=== PATIENT | male | born 1950 | race Caucasian/White ===

== ENCOUNTER 2016-09-21 11:57 | Inpatient (IN) ==
[2016-09-21] MEDS ORDERED: Ipratropium/Albuterol Neb 3 ML IH ONE (12:03)
[2016-09-21] MEDS ORDERED: methylPREDNISolone 125 MG/2 ML VIAL IVP ONE (12:03)
--- NOTE | 2016-09-21 12:05 | Emergency Department Note ---
Disposition Clinical Impression: Acute exacerbation of chronic obstructive airways disease Disposition: Admitted As Inpatient Condition: Fair Referrals: Morris Hudson DO [Primary Care Provider] - Time of Disposition: 13:15 SOB HPI - General Chief Complaint: ED Shortness of Breath/Dyspnea Stated Complaint: MEG / Chest Pain Time Seen by Provider: 09/21/16 12:01 Source: patient Mode of arrival: ambulatory Limitations: no limitations Nursing Notes Reviewed: Yes Vital Signs Reviewed: Yes - History of Present Illness 66-year-old with history COPD is having increasing shortness of breath over the last week. Patient called his family doctor 4 days ago was started on antibiotics and steroids without improvement. Pt Subjective Complaint: shortness of breath Onset (ago): day(s) Context: recent illness Severity: moderate Consistency/Duration: constant Improves with: nothing Worsens with: exertion Known history of: COPD Associated symptoms: Reports: chest pain, cough. Denies: fever Treatment prior to arrival: oxygen, bronchodilator Cough present: Yes Cough Description: Involuntary Cough Frequency: Intermittent - Related Data Home Medications Medication Instructions Recorded Confirmed Albuterol Neb [Proventil Neb] 2.5 mg IH TID PRN 05/09/15 10/05/15 Albuterol Sulfate [Proair HFA] 2 puff IH Q4HR PRN 05/09/15 10/05/15 Arformoterol Tartrate [Brovana] 15 mcg IH BID 05/09/15 10/05/15 Aspirin 325 mg PO DAILY 05/09/15 10/05/15 Atorvastatin Calcium [Lipitor] 40 mg PO QAM 05/09/15 10/05/15 Budesonide Neb [Pulmicort Neb] 0.25 mg IH BID 05/09/15 10/05/15 ClonazePAM [Klonopin] 2 mg PO HS 05/09/15 10/05/15 Diltiazem CD (24hr) [Cardizem CD] 120 mg PO QAM 05/09/15 10/05/15 Docusate Sodium [Dulcolax Stool 100 mg PO BID 05/09/15 10/05/15 Softener] Gabapentin [Neurontin] 1,600 mg PO HS 05/09/15 10/05/15 Gabapentin [Neurontin] 1,600 mg PO QAM 05/09/15 10/05/15 Gabapentin [Neurontin] 800 mg PO QPM 05/09/15 10/05/15 Oxygen 3.5 l NS AD 05/09/15 10/05/15 Pantoprazole Sodium [Protonix] 40 mg PO QAM 05/09/15 10/05/15 Polyethylene Glycol 3350 [MiraLAX] 17 gm PO DAILY PRN 05/09/15 10/05/15 Tiotropium [Spiriva] 18 mcg IH QAM 05/09/15 10/05/15 Travoprost [Travatan Z] 5 ml OP HS 05/09/15 10/05/15 Venlafaxine [Effexor] 75 mg PO BID 05/09/15 10/05/15 Allergies Allergy/AdvReac Type Severity Reaction Status Date / Time hydrocodone [From Vicodin] Allergy Mild Rash Verified 09/21/16 12:02 Penicillins [PCN] Allergy Mild Rash Verified 09/21/16 12:02 acetaminophen [From Vicodin] Allergy Rash Verified 09/21/16 12:02 Constitutional: Denies: fever, chills, weakness, weight change Eyes: Denies: eye pain, eye discharge, vision change ENT ED: Denies: ear pain, throat pain, dental pain, hearing loss, epistaxis, congestion, dysphagia Cardiovascular: Reports: chest pain. Denies: palpitations, dyspnea on exertion , edema, syncope Respiratory: Reports: cough, dyspnea, wheezes. Denies: hemoptysis, stridor Gastrointestinal: Denies: abdominal pain, nausea, vomiting, diarrhea, constipation, hematemesis, melena, hematochezia Genitourinary: Denies: urgency, dysuria, frequency, hematuria Musculoskeletal: Denies: back pain, neck pain, arthralgia, myalgia Integumentary: Denies: rash, abrasion, lesions Neurological: Denies: headache, weakness, numbness, paresthesias, confusion, abnormal gait, vertigo Psychiatric: Denies: anxiety, depression, suicidal thoughts, homicidal thoughts , auditory hallucinations, visual hallucinations Endocrine: Denies: fatigue Hematological/Lymphatic: Denies: easy bleeding, easy bruising Allergic/Immunologic: Denies: facial swelling, urticaria Past Medical History - Past Medical History Medical history: Reports: COPD Surgical history: Reports: herniorrhaphy, sinus surgery, other Psychiatric history: Reports: anxiety - Social History Smoking Status: Former smoker Smokeless Tobacco Status: No Alcohol use: Reports: none Drug use: Reports: none Physical Exam - General Limitations: no limitations General appearance: alert, in no apparent distress - Head Head exam: atraumatic, normocephalic, normal inspection - Eye Eye exam: Present: normal appearance, PERRL, EOMI - ENT ENT exam: normal exam, normal oropharynx, mucous membranes moist - Neck Neck exam: Present: normal inspection, full ROM, trachea midline - Chest Chest inspection: Present: normal inspection, symmetric chest wall rise - Respiratory Respiratory exam: Present: respiratory distress, wheezes, accessory muscle use, prolonged expiratory phase - Cardiovascular Cardiovascular exam: Present: regular rate, normal rhythm, normal heart sounds - Abdominal Exam Abdominal exam: Present: soft, Non-Tender. Absent: tenderness, distention, guarding, rebound, rigidity - Extremities Exam Extremities exam: Present: normal inspection, full ROM. Absent: tenderness, pedal edema - Expanded Lower Extremity Exam Neurovascular/Tendon exam: Absent: motor deficit, sensory deficit, tendon deficit Gait: observed and normal - Back Exam Back exam: Present: normal inspection, full ROM. Absent: tenderness - Neurological Exam Neurological exam: Present: alert, oriented X3 - Psychiatric Psychiatric exam: Present: normal affect, normal mood - Skin Skin exam: Present: warm, dry, intact, normal color Course - Reevaluation(s) Reevaluation #1: Some improvement with the breathing treatments and steroids however with any exertion and becomes very short of breath. Time: 13:15 - Consultations Consultation #1: Discussed with Dr. Tellez, admit. Time: 13:16 Vital Signs Temperature 97.8 F 09/21/16 12:00 Pulse Rate 110 09/21/16 12:00 Respiratory Rate 24 09/21/16 12:00 Blood Pressure 202/103 09/21/16 12:00 O2 Sat by Pulse Oximetry 91 L 09/21/16 12:00 Temperature 97.8 F 09/21/16 12:00 Pulse Rate 108 09/21/16 12:41 Respiratory Rate 16 09/21/16 12:41 Blood Pressure 150/72 09/21/16 12:41 O2 Sat by Pulse Oximetry 98 09/21/16 12:41 Oxygen Delivery Oxygen Delivery Nasal Cannula Shortness of Breath/Dyspnea - Lab Data Lab results reviewed: Yes I reviewed the patient's lab results. Result diagrams: 09/21/16 12:11 09/21/16 12:11 Lab Results 09/21/16 09/21/16 09/21/16 Range/Units 12:11 12:11 12:11 WBC 4.7 (4.3-11.1) K/mcL RBC 4.33 (4.19-5.50) M/mcL Hgb 11.6 L (12.9-16.9) g/dL Hct 38.9 (37.5-50.1) % MCV 89.8 (83.0-100.0) fL MCH 26.8 L (28.0-33.3) pg MCHC 29.8 L (31.6-35.5) g/dL RDW 12.9 (11.5-14.5) % Plt Count 177 (140-400) K/mcL MPV 9.0 L (9.4-12.4) fL Immature Gran % 0.4 (0-4) % Seg Neutrophils % 88.9 % Lymphocytes % 8.6 % Monocytes % 1.9 % Eosinophils % 0.0 % Basophils % 0.2 % Neutrophils # 4.1 (1.6-8.9) K/mcL Lymphocytes # 0.4 L (0.6-4.6) K/mcL Monocytes # 0.1 (0.0-1.3) K/mcL Eosinophils # 0.0 (0.0-0.6) K/mcL Basophils # 0.0 (0.0-0.2) K/mcL PT 12.1 (9.4-12.1) Seconds INR 1.1 APTT 33.9 (26.0-36.0) Seconds Sodium (136-145) mEq/L Potassium (3.5-4.5) mEq/L Chloride (98-109) mEq/L Carbon Dioxide (19-29) mEq/L BUN (8-26) mg/dL Creatinine (0.72-1.25) mg/dL Est GFR ( Amer) (> 60) Est GFR (Non-Af Amer) (> 60) BUN/Creatinine Ratio (6-26) Glucose (70-99) mg/dL Calculated Osmolality (280-300) Calcium (8.6-10.8) mg/dL Troponin I (0-0.03) ng/mL B-Natriuretic Peptide 187 H (0-100) pg/mL 09/21/16 09/21/16 Range/Units 12:11 12:11 WBC (4.3-11.1) K/mcL RBC (4.19-5.50) M/mcL Hgb (12.9-16.9) g/dL Hct (37.5-50.1) % MCV (83.0-100.0) fL MCH (28.0-33.3) pg MCHC (31.6-35.5) g/dL RDW (11.5-14.5) % Plt Count (140-400) K/mcL MPV (9.4-12.4) fL Immature Gran % (0-4) % Seg Neutrophils % % Lymphocytes % % Monocytes % % Eosinophils % % Basophils % % Neutrophils # (1.6-8.9) K/mcL Lymphocytes # (0.6-4.6) K/mcL Monocytes # (0.0-1.3) K/mcL Eosinophils # (0.0-0.6) K/mcL Basophils # (0.0-0.2) K/mcL PT (9.4-12.1) Seconds INR APTT (26.0-36.0) Seconds Sodium 142 (136-145) mEq/L Potassium 4.4 (3.5-4.5) mEq/L Chloride 98 (98-109) mEq/L Carbon Dioxide 34 H (19-29) mEq/L BUN 19 (8-26) mg/dL Creatinine 0.79 (0.72-1.25) mg/dL Est GFR ( Amer) > 60 (> 60) Est GFR (Non-Af Amer) > 60 (> 60) BUN/Creatinine Ratio 24 (6-26) Glucose 155 H (70-99) mg/dL Calculated Osmolality 299 (280-300) Calcium 9.9 (8.6-10.8) mg/dL Troponin I 0.01 (0-0.03) ng/mL B-Natriuretic Peptide (0-100) pg/mL - Radiology Data Radiology results reviewed: Yes I reviewed the patient's radiology results. Chest X-Ray 09/21/16 12:01 IMPRESSION: No acute cardiac or pulmonary disease. D/ / Jeb Triana MD / Jeb Triana MD Interpreting Provider: Jeb Triana MD - EKG Data EKG attestation: Yes I reviewed and interpreted this EKG. EKG shows normal: Reports: sinus rhythm Rate: Reports: normal Rhythm: Reports: NSR [place]/QRS: Reports: LBBB When compared to previous EKG there are: no significant changes (04/28/2016) Interpretation: Reports: no acute changes
[2016-09-21 12:36] LABS: Basophils % 0.2 %; Hematocrit 38.9 % (37.5-50.1); Hemoglobin 11.6 g/dL (12.9-16.9); Immature Granulocytes % 0.4 % (0-4); Lymphocytes # 0.4 K/mcL (0.6-4.6); Lymphocytes % 8.6 %; Mean Corpuscular HGB Conc 29.8 g/dL (31.6-35.5); Mean Corpuscular Hemoglobin 26.8 pg (28.0-33.3); Mean Corpuscular Volume 89.8 fL (83.0-100.0); Monocytes # 0.1 K/mcL (0.0-1.3); Monocytes % 1.9 %; Neutrophils # 4.1 K/mcL (1.6-8.9); Platelet Count 177 K/mcL (140-400); Red Blood Count 4.33 M/mcL (4.19-5.50); Red Cell Distribution Width 12.9 % (11.5-14.5); Segmented Neutrophils % 88.9 %
[2016-09-21 12:41] LABS: INR 1.1; Prothrombin Time 12.1 Seconds (9.4-12.1)
[2016-09-21 12:44] LABS: Activated Partial Thrombo Time 33.9 Seconds (26.0-36.0)
[2016-09-21 12:47] LABS: BUN/Creatinine Ratio 24 (6-26); Blood Urea Nitrogen 19 mg/dL (8-26); Calcium 9.9 mg/dL (8.6-10.8); Carbon Dioxide 34 mEq/L (19-29); Chloride 98 mEq/L (98-109); Glucose 155 mg/dL (70-99); Osmolality,Calculated 299 (280-300); Potassium 4.4 mEq/L (3.5-4.5); Sodium 142 mEq/L (136-145); eGFR For African Americans > 60 (> 60); eGFR For Non-African Americans > 60 (> 60)
[2016-09-21] MEDS ORDERED: Ondansetron 4 MG/2 ML VIAL IVP PRN (13:50)
[2016-09-21] MEDS ORDERED: Naloxone 0.4 MG/ML INJ IVP PRN (13:50)
--- NOTE | 2016-09-21 13:56 | Internal Med History&Physical ---
Date of Encounter: 09/21/16 Time of Encounter: 13:30 Assessment and Plan (1) Acute exacerbation of chronic obstructive airways disease Current visit: Yes Status: Acute Patient has a history of end-stage COPD on home oxygen. He has a 4 day history of worsening shortness of breath, cough and change in his sputum production. Examination reveals diffuse wheezing bilaterally and using accessory muscles of respiration. He has tachycardia and worsening hypoxia. Chest x-ray does not reveal any pneumonia or pneumothorax. Labs reviewed. Patient will be admitted to inpatient status due to acute exacerbation of COPD. Patient is high risk due to risk of worsening respiratory failure that required intervention and mechanical ventilation. Patient will be placed on intravenous steroids and [id number] breathing treatments. Levaquin by mouth for 5 days. NIPPV support at [id number] for now. Patient states that he is intolerant to BiPAP. He states that he uses a home and later. His family has been instructed to bring the same to the hospital and use it here. Patient is advanced wishes are not to have CPR performed. However, if he develops worsening respiratory failure, he is agreeable to intubation and mechanical ventilation for a short period of time-3 days after which he does not want to be kept on the ventilator. 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 (2) Pulmonary hypertension Current visit: Yes Status: Chronic Patient states that he was diagnosed with pulmonary hypertension and placed on calcium channel sho for that. Continue calcium channel sho. (3) Respiratory failure Current visit: Yes Status: Chronic Patient uses 3 L of oxygen at home around the clock. Patient is acute worsening of his respiratory failure due to COPD exacerbation. We will provide noninvasive ventilatory support with supplemental oxygen. Qualifiers: Chronicity: acute on chronic Respiratory failure complication: hypoxia and hypercapnia Qualified Code(s): J96.21 - Acute and chronic respiratory failure with hypoxia; J96.22 - Acute and chronic respiratory failure with hypercapnia (4) Obesity (BMI 30.0-34.9) Current visit: No Status: Chronic Internal Medicine - H&P: HPI Chief complaint: Shortness of breath Admitted From: Emergency Dept Plans for Post Hospital Care: Home History of present illness: Mr. Bess is a 66 year old male with a history of end-stage COPD on home oxygen 3 L [id number] presented to the emergency room due to shortness of breath. Patient stated that he has been short of breath over the past 4 days. He states that the shortness of breath started gradually and has been getting worse. He is currently short of breath even at rest. Shortness of breath associated with worsening cough and sputum production. Patient states that he has a cough and sputum production at baseline. However, he has noticed an increase in the amount of sputum produced, change in the consistency of the sputum and worsening cough. He also reports wheezing. He denies any chest pain although he reports chest tightness. He reports nausea although he denies any vomiting, abdominal pain, diarrhea or constipation. He denies having palpitations or feeling lightheaded. He denies any swelling in his legs. He denies any weakness in his arms or legs. He denies any fever or chills. He reports intermittent runny nose, postnasal drip. He reports that he has a sore throat from excessive coughing. Past Med Surg Social Fam HX - Past Medical History Attestation: Yes The following information was validated with the patient. Source: patient, obtained from family Medical history: COPD Psychiatric history: anxiety, PTSD - Past Surgical History Surgical History: herniorrhaphy, orthopedic, other (Multiple back surgeries and wrist surgeries), sinus surgery, other (Lung reduction surgery bilaterally in 1999) - Social History Smoking Status: Former smoker Smokeless Tobacco Status: No Alcohol use: none Drug use: none Current living situation: Home, With Family - Additional Family History Additional family history: Reviewed. Not pertinent Internal Medicine - H&P: Meds Albuterol Neb [Proventil Neb] 2.5 mg IH TID PRN 05/09/15 [History] Albuterol Sulfate [Proair HFA] 2 puff IH Q4HR PRN 05/09/15 [History] Arformoterol Tartrate [Brovana] 15 mcg IH BID 05/09/15 [History] Aspirin 325 mg PO DAILY 05/09/15 [History] Atorvastatin Calcium [Lipitor] 40 mg PO QAM 05/09/15 [History] Budesonide Neb [Pulmicort Neb] 0.25 mg IH BID 05/09/15 [History] ClonazePAM [Klonopin] 2 mg PO HS 05/09/15 [History] Diltiazem CD (24hr) [Cardizem CD] 120 mg PO QAM 05/09/15 [History] Docusate Sodium [Dulcolax Stool Softener] 100 mg PO BID 05/09/15 [History] Gabapentin [Neurontin] 1,600 mg PO HS 05/09/15 [History] Gabapentin [Neurontin] 1,600 mg PO QAM 05/09/15 [History] Oxygen 3.5 l NS AD 05/09/15 [History] Pantoprazole Sodium [Protonix] 40 mg PO QAM 05/09/15 [History] Polyethylene Glycol 3350 [MiraLAX] 17 gm PO DAILY PRN 05/09/15 [History] Tiotropium [Spiriva] 18 mcg IH QAM 05/09/15 [History] Travoprost [Travatan Z] 5 ml OP HS 05/09/15 [History] Ciclopirox Olamine [Ciclopirox] 1 appl TP DAILY PRN 09/21/16 [History] Doxycycline Hyclate [Morgidox] 100 mg PO BID 09/21/16 [History] Furosemide [Lasix] 20 mg PO DAILY PRN 09/21/16 [History] OLANZapine [Zyprexa] 5 mg PO 09/21/16 [History] Potassium Chloride [K-Tab ER] 10 meq PO DAILY PRN 09/21/16 [History] PredniSONE 10 mg PO AD 09/21/16 [History] Venlafaxine HCl [Venlafaxine HCl ER] 150 mg PO QAM 09/21/16 [History] Allergies hydrocodone [From Vicodin] Allergy (Mild, Verified 09/21/16 12:02) Rash Skin peeling Penicillins [PCN] Allergy (Mild, Verified 09/21/16 12:02) Rash acetaminophen [From Vicodin] Allergy (Verified 09/21/16 12:02) Rash All Systems PM: A 10-system review of systems was performed and is negative for pertinent findings except as documented above in the HPI. Review of systems: 10 systems have been reviewed and are negative except as mentioned in the history of present illness - Constitutional Vitals: Temp Pulse Resp BP Pulse Ox 97.8 F 98 19 124/91 98 09/21/16 12:00 09/21/16 13:31 09/21/16 13:31 09/21/16 13:31 09/21/16 13:31 Exam: Gen.: Lying in bed. Moderate distress. Eyes: Pupils equal, round and reactive to light. Extraocular muscles intact. ENT: Moist mucous membranes. No oropharyngeal erythema or discharge. Chest: Bilateral diffuse wheezing present. Reduced breath sounds bilaterally. Using accessory muscles of respiration. CVS: First and second heart sounds present. No murmurs, rubs or gallops. Tachycardia present. Abdomen: Soft, nontender, obese. Bowel sounds present. Skin: No decubitus ulcers appreciated. CONSERVATION EDUCATOR: No focal neuro deficits present. Psychiatric: Alert, awake and oriented to time, place and person. Lymphatic system: No lymphadenopathy appreciated Internal Med - H&P Results - Labs CBC & Chem 7: 09/21/16 12:11 09/21/16 12:11 Labs: Short CBC 09/21/16 Range/Units 12:11 WBC 4.7 (4.3-11.1) K/mcL Hgb 11.6 L (12.9-16.9) g/dL Hct 38.9 (37.5-50.1) % Plt Count 177 (140-400) K/mcL Neutrophils # 4.1 (1.6-8.9) K/mcL BMP 09/21/16 12:11 Sodium 142 Potassium 4.4 Chloride 98 Carbon Dioxide 34 H BUN 19 Creatinine 0.79 Glucose 155 H Calcium 9.9 Cardiac Enzymes 09/21/16 Range/Units 12:11 Troponin I 0.01 (0-0.03) ng/mL - EKG Data -: EKG Interpreted by Myself EKG shows normal: sinus rhythm, QRS complexes (Left bundle branch block) Rate: tachycardia - EKG Data Prior EKG available for review: yes When compared to previous EKG: there is no significant change - Impressions ITS Impressions Chest X-Ray 09/21/16 12:01 IMPRESSION: No acute cardiac or pulmonary disease. D/ / Jeb Triana MD / Jeb Triana MD Interpreting Provider: Jeb Triana MD - Diagnostic Studies Chest x-ray Status: image reviewed by me (No acute infiltrate seen. Sternal fixation device seen.)
[2016-09-21] MEDS: levoFLOXacin 500 MG TABLET PO SCH (15:24)
[2016-09-21] MEDS: Ipratropium/Albuterol Neb 3 ML IH SCH ×2 (15:56→20:10)
[2016-09-21] MEDS: *HR* Heparin 5,000 UNIT/ML VIAL SQ SCH ×2 (17:08→23:13)
[2016-09-21] MEDS: GuaiFENesin Liq 200 MG/10 ML UDC PO SCH ×3 (17:09→23:13)
[2016-09-21] MEDS: MethylPREDNISolone 40 MG/ML VIAL IVP SCH ×2 (17:09→23:13)
[2016-09-21] MEDS: *HR* OxyCODONE/APAP 5/325 TABLET PO PRN (18:15)
[2016-09-22] MEDS: Ipratropium/Albuterol Neb 3 ML IH SCH ×7 (00:32→23:40)
[2016-09-22] MEDS ORDERED: *HR* Morphine 2 MG/ML SYRINGE IVP PRN (02:18)
[2016-09-22] MEDS: *HR* LORazepam 2 MG/ML VIAL IVP PRN ×3 (02:28→20:48)
[2016-09-22] MEDS: GuaiFENesin Liq 200 MG/10 ML UDC PO SCH ×4 (04:55→23:04)
[2016-09-22] MEDS: MethylPREDNISolone 40 MG/ML VIAL IVP SCH ×4 (04:55→23:04)
[2016-09-22 05:39] LABS: Hematocrit 35.8 % (37.5-50.1); Hemoglobin 10.7 g/dL (12.9-16.9); Immature Granulocytes % 0.3 % (0-4); Lymphocytes # 0.3 K/mcL (0.6-4.6); Lymphocytes % 4.3 %; Mean Corpuscular HGB Conc 29.9 g/dL (31.6-35.5); Mean Corpuscular Hemoglobin 27.4 pg (28.0-33.3); Mean Corpuscular Volume 91.6 fL (83.0-100.0); Mean Platelet Volume 9.1 fL (9.4-12.4); Monocytes # 0.1 K/mcL (0.0-1.3); Monocytes % 2.1 %; Neutrophils # 5.8 K/mcL (1.6-8.9); Platelet Count 189 K/mcL (140-400); Red Blood Count 3.91 M/mcL (4.19-5.50); Red Cell Distribution Width 13.2 % (11.5-14.5); Segmented Neutrophils % 93.3 %
[2016-09-22 06:00] LABS: Alanine Aminotransferase 16 Units/L (0-55); Albumin 3.6 g/dL (3.5-5.0); Alkaline Phosphatase 72 Units/L (38-126); Aspartate Amino Transferase 29 Units/L (5-34); BUN/Creatinine Ratio 28 (6-26); Bilirubin,Total 0.3 mg/dL (0.2-1.2); Blood Urea Nitrogen 29 mg/dL (8-26); Calcium 9.4 mg/dL (8.6-10.8); Carbon Dioxide 37 mEq/L (19-29); Chloride 99 mEq/L (98-109); Globulin 3.5 g/dL (2.4-3.5); Glucose 154 mg/dL (70-99); Osmolality,Calculated 305 (280-300); Potassium 4.2 mEq/L (3.5-4.5); Sodium 143 mEq/L (136-145); Total Protein 7.1 g/dL (6.0-8.3); eGFR For African Americans > 60 (> 60); eGFR For Non-African Americans > 60 (> 60)
[2016-09-22] MEDS: levoFLOXacin 500 MG TABLET PO SCH (07:33)
[2016-09-22] MEDS: Diltiazem CD (24hr) 120 MG CAPSULE PO SCH (07:33)
[2016-09-22] MEDS: *HR* Heparin 5,000 UNIT/ML VIAL SQ SCH ×3 (07:33→23:04)
[2016-09-22] MEDS ORDERED: Furosemide 20 MG TABLET PO PRN (08:34)
--- NOTE | 2016-09-22 08:42 | Internal Med Progress Note ---
Date of Encounter: 09/22/16 Time of Encounter: 08:40 - Assessment and plan (1) Acute exacerbation of chronic obstructive airways disease Current Visit: Yes Status: Acute Assessment and plan: Patient is known to have advanced COPD with history of lung reduction surgery. Clinical status somewhat improved but had an episode of acute respiratory distress and hypoxia this afternoon due to not being on appropriate oxygen and trying to ambulate. Improved after receiving supplemental oxygen and benzodiazepines. Continue scheduled bronchodilators, IV steroids, empiric oral antibiotics and inhaled steroids. Patient is noted to be on noninvasive ventilator support, which is brought in from his home. Continue to use when necessary. Supportive care. Patient's CODE STATUS is DNR comfort care arrest, discussed with him and he refuses CPR and cardiac resuscitation but is agreeable to temporary elective intubation to improve his respiratory status, may be for a trial of 3 days. High risk condition, at risk for endotracheal intubation and mechanical ventilation. (2) Chronic respiratory failure Current Visit: Yes Status: Chronic Assessment and plan: Patient noted to be on home oxygen for end-stage COPD. He requires outpatient pulmonology follow-up. Qualifiers: Respiratory failure complication: hypoxia Qualified Code(s): J96.11 - Chronic respiratory failure with hypoxia (3) Depression Current Visit: Yes Status: Chronic Qualifiers: Depression Type: unspecified Qualified Code(s): F32.9 - Major depressive disorder, single episode, unspecified (4) PTSD (post-traumatic stress disorder) Current Visit: Yes Status: Chronic (5) Pulmonary hypertension Current Visit: Yes Status: Chronic Assessment and plan: Continue calcium channel sho. (6) Obesity (BMI 30.0-34.9) Current Visit: No Status: Chronic - Subjective Interval history: Feels about the same; better shortness of breath; used home ventilator last night, currently on nasal cannula; no chest pain, cough, congestion, palpitations, does have some leg swelling at baseline and exertional dyspnea; - Constitutional Vitals: Temp Pulse Resp BP Pulse Ox 97.5 F L 99 18 144/93 93 L 09/22/16 06:37 09/22/16 07:29 09/22/16 07:51 09/22/16 07:51 09/22/16 07:51 General appearance: Present: A&O X 3, obese, answers questions appropriately - Head Head exam: Present: atraumatic, normocephalic - Neck Neck exam general surgery: Present: supple, trachea midline. Absent: lymphadenopathy - Respiratory Respiratory exam: Present: decreased breath sounds (on the right), wheezes ( diffuse end-expiratry wheezing on the left posterior lungs). Absent: accessory muscle use, rales, rhonchi - Cardiovascular Cardiovascular exam: Present: RRR, +S1, +S2. Absent: diastolic murmur, gallop, rubs, systolic murmur - GI/Abdominal GI/Abdominal exam: Present: normal bowel sounds, soft, no peritoneal signs. Absent: distended, tenderness - Extremities Exam Extremities exam: Present: full ROM, pedal edema, warm, radial pulses palpable and symetrical. Absent: calf tenderness, cyanotic - Neurological Exam Neurological exam: Present: CN II-XII intact, oriented X3, no focal deficits. Absent: pronater drift, facial droop, speech deficit - Skin Skin exam: Present: dry, intact Internal Medicine: Result - Labs CBC & Chem 7: 09/22/16 05:34 09/22/16 05:34 Labs: Short CBC 09/22/16 Range/Units 05:34 WBC 6.2 (4.3-11.1) K/mcL Hgb 10.7 L (12.9-16.9) g/dL Hct 35.8 L (37.5-50.1) % Plt Count 189 (140-400) K/mcL Neutrophils # 5.8 (1.6-8.9) K/mcL BMP 09/22/16 05:34 Sodium 143 Potassium 4.2 Chloride 99 Carbon Dioxide 37 H BUN 29 H D Creatinine 1.05 Glucose 154 H Calcium 9.4 Liver Function 09/22/16 Range/Units 05:34 Total Bilirubin 0.3 (0.2-1.2) mg/dL AST 29 (5-34) Units/L ALT 16 (0-55) Units/L Alkaline Phosphatase 72 (38-126) Units/L Albumin 3.6 (3.5-5.0) g/dL - ABG Interpretation ABG results: PT/INR, D-dimer PT 12.1 Seconds (9.4-12.1) 09/21/16 12:11 Consult Discharge Plan - Plan Referrals: Morris Hudson DO [Primary Care Provider] -
[2016-09-22] MEDS ORDERED: Budesonide Neb 0.25 MG/2 ML IH SCH (09:00)
[2016-09-22] MEDS: Budesonide Neb 0.25 MG/2 ML IH SCH ×2 (10:26→20:48)
[2016-09-22] MEDS: Venlafaxine XR (24 HR) 150 MG CAP.ER.24H PO SCH (13:30)
--- NOTE | 2016-09-22 17:42 | Electrocardiograph Report ---
[facility] Test Date: 2016-09-21 Pat Name: Ney Bess Department: 105 Room: 2N13 Gender: M Hand Embroiderer: JOSE MANUEL : 1950 Requested By: Kishor Hernandez Order Number: [id number] Reading MD: Talon Coelho MD Measurements Intervals [place] Rate: 117 P: 71 MT: 137 QRS: 44 QRSD: 157 T: 89 QT: 361 QTc: 431 Interpretive Statements SINUS TACHYCARDIA LEFT BUNDLE BRANCH BLOCK Electronically Signed On 09-22-16 17:41:23 EST by Talon Coelho MD
[2016-09-22] MEDS: Nystatin SUSP 5 ML UD.LIQ PO SCH (20:23)
[2016-09-22] MEDS: OLANZapine 5 MG TAB.RAPDIS PO SCH (22:36)
[2016-09-22] MEDS: Gabapentin 400 MG CAPSULE PO SCH (22:36)
[2016-09-23] MEDS: Ipratropium/Albuterol Neb 3 ML IH SCH ×5 (04:46→20:42)
[2016-09-23] MEDS: GuaiFENesin Liq 200 MG/10 ML UDC PO SCH ×4 (05:07→23:31)
[2016-09-23] MEDS: MethylPREDNISolone 40 MG/ML VIAL IVP SCH ×4 (05:07→23:31)
[2016-09-23] MEDS: Budesonide Neb 0.25 MG/2 ML IH SCH ×2 (07:43→20:43)
[2016-09-23] MEDS: *HR* Heparin 5,000 UNIT/ML VIAL SQ SCH ×3 (08:25→23:32)
[2016-09-23] MEDS: Gabapentin 400 MG CAPSULE PO SCH ×2 (08:25→20:34)
[2016-09-23] MEDS: Nystatin SUSP 5 ML UD.LIQ PO SCH ×4 (08:25→20:34)
[2016-09-23] MEDS: levoFLOXacin 500 MG TABLET PO SCH (08:25)
[2016-09-23] MEDS: Diltiazem CD (24hr) 120 MG CAPSULE PO SCH (08:25)
[2016-09-23] MEDS: Venlafaxine XR (24 HR) 150 MG CAP.ER.24H PO SCH (08:25)
--- NOTE | 2016-09-23 13:46 | Internal Med Progress Note ---
Date of Encounter: 09/23/16 Time of Encounter: 08:30 - Assessment and plan (1) Acute exacerbation of chronic obstructive airways disease Current Visit: Yes Status: Acute Assessment and plan: Known advanced COPD s/plung reduction surgery. Continue scheduled bronchodilators, IV steroids, empiric oral antibiotics and inhaled steroids. Will consider titrating steroids from tmrw a.m Continue BiPAP prn Patient's CODE STATUS is DNR comfort care arrest, discussed with him and he refuses CPR and cardiac resuscitation but is agreeable to temporary elective intubation to improve his respiratory status, may be for a trial of 3 days. High risk condition, at risk for endotracheal intubation and mechanical ventilation. (2) Chronic respiratory failure Current Visit: Yes Status: Chronic Assessment and plan: Patient noted to be on home oxygen for end-stage COPD. He requires outpatient pulmonology follow-up. Qualifiers: Respiratory failure complication: hypoxia Qualified Code(s): J96.11 - Chronic respiratory failure with hypoxia (3) Depression Current Visit: Yes Status: Chronic Assessment and plan: Resume home meds Qualifiers: Depression Type: unspecified Qualified Code(s): F32.9 - Major depressive disorder, single episode, unspecified (4) PTSD (post-traumatic stress disorder) Current Visit: Yes Status: Chronic Assessment and plan: Resume home meds (5) Pulmonary hypertension Current Visit: Yes Status: Chronic Assessment and plan: Continue calcium channel sho. (6) Respiratory failure Current Visit: Yes Status: Acute Assessment and plan: Acute on chronic Patient may need to be assessed for necessity for high flow O2 upon discharge Qualifiers: Chronicity: acute on chronic Respiratory failure complication: hypoxia and hypercapnia Qualified Code(s): J96.21 - Acute and chronic respiratory failure with hypoxia; J96.22 - Acute and chronic respiratory failure with hypercapnia (7) Obesity (BMI 30.0-34.9) Current Visit: Yes Status: Chronic - Subjective Interval history: 66 Y/O M with advanced COPD s/p lung reduction surgery with FEV of 17% (per patient), with chronic hypoxic respiratory failure being managed for acute on chronic hypoxemic respiratory failure secondary to COPD exacerbation He is seen at bedside today Denies new complains Bu reports since admission, unable to ambulate without significant respiratory distress. Denies chest pain, reports improvement in cough and sputum production Occasionally uses BiPAP machine at night Other PMH significant for HTN, HLD, Pulm HTN, PTSD. - Constitutional Vitals: Temp Pulse Resp BP Pulse Ox 97.6 F 95 20 127/81 97 09/23/16 11:36 09/23/16 11:36 09/23/16 12:06 09/23/16 11:36 09/23/16 12:06 General appearance: Present: mild distress, A&O X 3, obese, answers questions appropriately - Head Head exam: Present: atraumatic - Eye Eye exam: Present: PERRL, conjuntiva pink, sclera anicteric - ENT ENT exam: Present: mucous membranes moist - Neck Neck exam general surgery: Present: normal inspection - Respiratory Additional comments: Distant breath sounds with few scattered wheezing - Cardiovascular Cardiovascular exam: Present: RRR, +S1, +S2. Absent: diastolic murmur, gallop, rubs, systolic murmur - GI/Abdominal GI/Abdominal exam: Present: normal bowel sounds, soft, no peritoneal signs. Absent: distended, tenderness - Extremities Exam Extremities exam: Present: warm, radial pulses palpable and symetrical. Absent : calf tenderness, cyanotic, pedal edema - Neurological Exam Neurological exam: Present: CN II-XII intact, oriented X3, no focal deficits. Absent: pronater drift, facial droop, speech deficit - Skin Skin exam: Present: dry, intact Internal Medicine: Result - Labs CBC & Chem 7: 09/22/16 05:34 09/22/16 05:34 - ABG Interpretation ABG results: PT/INR, D-dimer PT 12.1 Seconds (9.4-12.1) 09/21/16 12:11 Consult Discharge Plan - Plan Referrals: Morris Hudson DO [Primary Care Provider] - (sent web request on 09-22-16 @ 1851)
[2016-09-23] MEDS: *HR* OxyCODONE/APAP 5/325 TABLET PO PRN ×2 (14:27→23:31)
[2016-09-23] MEDS: OLANZapine 5 MG TAB.RAPDIS PO SCH (20:35)
[2016-09-24] MEDS: Ipratropium/Albuterol Neb 3 ML IH SCH ×6 (00:20→22:34)
[2016-09-24 05:57] LABS: Hematocrit 34.3 % (37.5-50.1); Immature Granulocytes % 0.8 % (0-4); Lymphocytes # 0.3 K/mcL (0.6-4.6); Lymphocytes % 3.3 %; Mean Corpuscular HGB Conc 29.2 g/dL (31.6-35.5); Mean Corpuscular Hemoglobin 27.3 pg (28.0-33.3); Mean Corpuscular Volume 93.7 fL (83.0-100.0); Mean Platelet Volume 9.8 fL (9.4-12.4); Monocytes # 0.3 K/mcL (0.0-1.3); Monocytes % 2.9 %; Neutrophils # 9.1 K/mcL (1.6-8.9); Platelet Count 210 K/mcL (140-400); Red Blood Count 3.66 M/mcL (4.19-5.50); Red Cell Distribution Width 13.4 % (11.5-14.5)
[2016-09-24 05:59] LABS: Alanine Aminotransferase 16 Units/L (0-55); Albumin 3.6 g/dL (3.5-5.0); Albumin/Globulin Ratio 1.1 (1.1-2.2); Alkaline Phosphatase 62 Units/L (38-126); Aspartate Amino Transferase 35 Units/L (5-34); BUN/Creatinine Ratio 45 (6-26); Bilirubin,Total 0.3 mg/dL (0.2-1.2); Calcium 9.6 mg/dL (8.6-10.8); Carbon Dioxide 38 mEq/L (19-29); Chloride 100 mEq/L (98-109); Globulin 3.2 g/dL (2.4-3.5); Glucose 141 mg/dL (70-99); Osmolality,Calculated 309 (280-300); Sodium 143 mEq/L (136-145); Total Protein 6.8 g/dL (6.0-8.3); eGFR For African Americans > 60 (> 60); eGFR For Non-African Americans > 60 (> 60)
[2016-09-24 06:05] LABS: Blood Urea Nitrogen 43 mg/dL (8-26); Potassium 4.8 mEq/L (3.5-4.5)
[2016-09-24] MEDS: GuaiFENesin Liq 200 MG/10 ML UDC PO SCH ×3 (06:34→17:04)
[2016-09-24] MEDS: MethylPREDNISolone 40 MG/ML VIAL IVP SCH ×3 (06:34→17:04)
[2016-09-24] MEDS: Budesonide Neb 0.25 MG/2 ML IH SCH ×2 (08:25→22:34)
[2016-09-24] MEDS: Gabapentin 400 MG CAPSULE PO SCH ×2 (09:22→20:05)
[2016-09-24] MEDS: Nystatin SUSP 5 ML UD.LIQ PO SCH ×4 (09:22→20:05)
[2016-09-24] MEDS: *HR* Heparin 5,000 UNIT/ML VIAL SQ SCH ×2 (09:23→17:04)
[2016-09-24] MEDS: Venlafaxine XR (24 HR) 150 MG CAP.ER.24H PO SCH (09:23)
[2016-09-24] MEDS: Diltiazem CD (24hr) 120 MG CAPSULE PO SCH (09:23)
[2016-09-24] MEDS: levoFLOXacin 500 MG TABLET PO SCH (09:23)
[2016-09-24] MEDS: *HR* OxyCODONE/APAP 5/325 TABLET PO PRN (09:26)
--- NOTE | 2016-09-24 17:15 | Internal Med Progress Note ---
Date of Encounter: 09/24/16 Time of Encounter: 11:00 - Assessment and plan (1) Acute exacerbation of chronic obstructive airways disease Current Visit: Yes Status: Acute Assessment and plan: Known advanced COPD s/plung reduction surgery. COntinue levoquin Changed steroids to oral Continue BiPAP prn Patient's CODE STATUS is DNR comfort care arrest, discussed with him and he refuses CPR and cardiac resuscitation but is agreeable to temporary elective intubation to improve his respiratory status, may be for a trial of 3 days. High risk condition, at risk for endotracheal intubation and mechanical ventilation. (2) Chronic respiratory failure Current Visit: Yes Status: Chronic Assessment and plan: Patient noted to be on home oxygen for end-stage COPD. He requires outpatient pulmonology follow-up. Qualifiers: Respiratory failure complication: hypoxia Qualified Code(s): J96.11 - Chronic respiratory failure with hypoxia (3) Depression Current Visit: Yes Status: Chronic Assessment and plan: Resume home meds Qualifiers: Depression Type: unspecified Qualified Code(s): F32.9 - Major depressive disorder, single episode, unspecified (4) PTSD (post-traumatic stress disorder) Current Visit: Yes Status: Chronic Assessment and plan: Resume home meds (5) Pulmonary hypertension Current Visit: Yes Status: Chronic Assessment and plan: Continue calcium channel sho. (6) Respiratory failure Current Visit: Yes Status: Acute Assessment and plan: Acute on chronic Patient may need to be assessed for necessity for high flow O2 upon discharge Qualifiers: Chronicity: acute on chronic Respiratory failure complication: hypoxia and hypercapnia Qualified Code(s): J96.21 - Acute and chronic respiratory failure with hypoxia; J96.22 - Acute and chronic respiratory failure with hypercapnia (7) Obesity (BMI 30.0-34.9) Current Visit: Yes Status: Chronic - Subjective Interval history: 66 Y/O M with advanced COPD s/p lung reduction surgery with FEV of 17% (per patient), with chronic hypoxic respiratory failure being managed for acute on chronic hypoxemic respiratory failure secondary to COPD exacerbation He is seen at bedside today Denies new complains Reports significant improvement Other PMH significant for HTN, HLD, Pulm HTN, PTSD. - Constitutional Vitals: Temp Pulse Resp BP Pulse Ox 98.3 F 82 20 153/69 97 09/24/16 14:58 09/24/16 14:58 09/24/16 16:43 09/24/16 14:58 09/24/16 16:43 General appearance: Present: mild distress, A&O X 3, obese, answers questions appropriately - Head Head exam: Present: atraumatic, normocephalic - Eye Eye exam: Present: PERRL, conjuntiva pink, sclera anicteric Pupils: Present: PERRL - ENT ENT exam: Present: mucous membranes moist - Neck Neck exam general surgery: Present: normal inspection - Respiratory Respiratory exam: Present: wheezes - Cardiovascular Cardiovascular exam: Present: RRR, +S1, +S2 - GI/Abdominal GI/Abdominal exam: Present: normal bowel sounds, soft, no peritoneal signs. Absent: distended, tenderness - Extremities Exam Extremities exam: Present: warm, radial pulses palpable and symetrical. Absent : calf tenderness, cyanotic, pedal edema - Neurological Exam Neurological exam: Present: CN II-XII intact, oriented X3, no focal deficits. Absent: pronater drift, facial droop, speech deficit - Skin Skin exam: Present: dry, intact Internal Medicine: Result - Labs CBC & Chem 7: 09/24/16 05:06 09/24/16 05:06 Labs: Short CBC 09/24/16 Range/Units 05:06 WBC 9.8 D (4.3-11.1) K/mcL Hgb 10.0 L (12.9-16.9) g/dL Hct 34.3 L (37.5-50.1) % Plt Count 210 (140-400) K/mcL Neutrophils # 9.1 H (1.6-8.9) K/mcL BMP 09/24/16 05:06 Sodium 143 Potassium 4.8 H Chloride 100 Carbon Dioxide 38 H BUN 43 H D Creatinine 0.95 Glucose 141 H Calcium 9.6 Liver Function 09/24/16 Range/Units 05:06 Total Bilirubin 0.3 (0.2-1.2) mg/dL AST 35 H (5-34) Units/L ALT 16 (0-55) Units/L Alkaline Phosphatase 62 (38-126) Units/L Albumin 3.6 (3.5-5.0) g/dL - ABG Interpretation ABG results: PT/INR, D-dimer PT 12.1 Seconds (9.4-12.1) 09/21/16 12:11 - VTE Documentation of Mechanical Device: Graduated compression elastic hosiery Consult Discharge Plan - Plan Referrals: Morris Hudson DO [Primary Care Provider] - (sent web request on 09-22-16 @ 1500 Called on 09-24-16 to check on appointments, none given yet)
[2016-09-24] MEDS: OLANZapine 5 MG TAB.RAPDIS PO SCH (20:05)
[2016-09-25] MEDS: *HR* Heparin 5,000 UNIT/ML VIAL SQ SCH ×3 (00:05→17:20)
[2016-09-25] MEDS: GuaiFENesin Liq 200 MG/10 ML UDC PO SCH ×4 (00:05→17:20)
[2016-09-25] MEDS: Ipratropium/Albuterol Neb 3 ML IH SCH ×6 (01:00→21:04)
[2016-09-25 05:27] LABS: Basophils % 0.1 %; Red Cell Distribution Width 13.2 % (11.5-14.5)
[2016-09-25 05:28] LABS: Hematocrit 34.1 % (37.5-50.1); Immature Granulocytes % 0.9 % (0-4); Lymphocytes # 0.4 K/mcL (0.6-4.6); Lymphocytes % 4.6 %; Mean Corpuscular HGB Conc 29.3 g/dL (31.6-35.5); Mean Corpuscular Hemoglobin 27.5 pg (28.0-33.3); Mean Corpuscular Volume 93.7 fL (83.0-100.0); Mean Platelet Volume 9.7 fL (9.4-12.4); Monocytes # 0.3 K/mcL (0.0-1.3); Monocytes % 4.1 %; Neutrophils # 7.2 K/mcL (1.6-8.9); Platelet Count 191 K/mcL (140-400); Red Blood Count 3.64 M/mcL (4.19-5.50); Segmented Neutrophils % 90.3 %
[2016-09-25 05:43] LABS: Alanine Aminotransferase 16 Units/L (0-55); Albumin 3.4 g/dL (3.5-5.0); Albumin/Globulin Ratio 1.2 (1.1-2.2); Alkaline Phosphatase 58 Units/L (38-126); Aspartate Amino Transferase 24 Units/L (5-34); BUN/Creatinine Ratio 47 (6-26); Bilirubin,Total 0.3 mg/dL (0.2-1.2); Blood Urea Nitrogen 41 mg/dL (8-26); Calcium 9.4 mg/dL (8.6-10.8); Chloride 101 mEq/L (98-109); Globulin 2.8 g/dL (2.4-3.5); Glucose 140 mg/dL (70-99); Osmolality,Calculated 310 (280-300); Potassium 4.8 mEq/L (3.5-4.5); Sodium 144 mEq/L (136-145); Total Protein 6.2 g/dL (6.0-8.3); eGFR For African Americans > 60 (> 60); eGFR For Non-African Americans > 60 (> 60)
[2016-09-25 05:50] LABS: Carbon Dioxide 42 mEq/L (19-29)
[2016-09-25 05:59] LABS: Platelet Estimate Normal (Normal)
[2016-09-25 06:01] LABS: Hypochromasia Present (Not Present)
[2016-09-25] MEDS: Budesonide Neb 0.25 MG/2 ML IH SCH ×2 (07:52→21:04)
[2016-09-25] MEDS: Diltiazem CD (24hr) 120 MG CAPSULE PO SCH (09:13)
[2016-09-25] MEDS: Gabapentin 400 MG CAPSULE PO SCH ×2 (09:13→21:16)
[2016-09-25] MEDS: Nystatin SUSP 5 ML UD.LIQ PO SCH ×4 (09:14→21:16)
[2016-09-25] MEDS: predniSONE 20 MG TABLET PO SCH (09:14)
[2016-09-25] MEDS: levoFLOXacin 500 MG TABLET PO SCH (09:14)
[2016-09-25] MEDS: Venlafaxine XR (24 HR) 150 MG CAP.ER.24H PO SCH (09:14)
[2016-09-25 10:48] LABS: VBG HCO3 48.1 mEq/L (21-27); VBG PH 7.29 pH Units (7.32-7.42)
--- NOTE | 2016-09-25 11:08 | Internal Med Progress Note ---
Date of Encounter: 09/25/16 Time of Encounter: 11:00 - Assessment and plan (1) Acute exacerbation of chronic obstructive airways disease Current Visit: Yes Status: Acute Assessment and plan: Known advanced COPD s/plung reduction surgery. Continue levoquin Continue oral steroids Noted to have metabolic alkalosis with CO2 of 45, patient is chronic retainer of PCO2 , VBG ordered stat. Showed PH 7.29, PCO2 100, PO2 54. Patient is awake, alert, looked comfortable, BiPAP has been ordered Will monitor VBG Patient's CODE STATUS is DNR comfort care arrest, he refuses CPR and cardiac resuscitation but is agreeable to temporary elective intubation to improve his respiratory status, may be for a trial of 3 days. High risk condition, at risk for endotracheal intubation and mechanical ventilation. (2) Chronic respiratory failure Current Visit: Yes Status: Chronic Assessment and plan: Patient noted to be on home oxygen for end-stage COPD. He requires outpatient pulmonology follow-up. Qualifiers: Respiratory failure complication: hypoxia Qualified Code(s): J96.11 - Chronic respiratory failure with hypoxia (3) Depression Current Visit: Yes Status: Chronic Assessment and plan: Resume home meds Qualifiers: Depression Type: unspecified Qualified Code(s): F32.9 - Major depressive disorder, single episode, unspecified (4) PTSD (post-traumatic stress disorder) Current Visit: Yes Status: Chronic Assessment and plan: Resume home meds (5) Pulmonary hypertension Current Visit: Yes Status: Chronic Assessment and plan: Continue calcium channel sho. (6) Respiratory failure Current Visit: Yes Status: Acute Assessment and plan: Acute on chronic Qualifiers: Chronicity: acute on chronic Respiratory failure complication: hypoxia and hypercapnia Qualified Code(s): J96.21 - Acute and chronic respiratory failure with hypoxia; J96.22 - Acute and chronic respiratory failure with hypercapnia (7) Obesity (BMI 30.0-34.9) Current Visit: Yes Status: Chronic - Subjective Interval history: 66 Y/O M with advanced COPD s/p lung reduction surgery with FEV of 17% (per patient), with chronic hypoxic respiratory failure being managed for acute on chronic hypoxemic respiratory failure secondary to COPD exacerbation Other PMH significant for HTN, HLD, Pulm HTN, PTSD. He is seen sitting out of bed today Looks and feels much better, ambulatory, awake, alert. We will ambulate patient today, and early discharge a.m if stable - Constitutional Vitals: Temp Pulse Resp BP Pulse Ox 97.9 F 93 18 148/74 93 L 09/25/16 07:28 09/25/16 09:00 09/25/16 07:28 09/25/16 07:28 09/25/16 09:00 General appearance: Present: A&O X 3, no acute distress, obese, answers questions appropriately - Head Head exam: Present: atraumatic, normocephalic - Eye Eye exam: Present: PERRL, conjuntiva pink, sclera anicteric Pupils: Present: PERRL - Neck Neck exam general surgery: Present: supple, trachea midline. Absent: lymphadenopathy - Respiratory Respiratory exam: Present: CTAB Additional comments: Distant breath sounds, no wheezing today - Cardiovascular Cardiovascular exam: Present: RRR, +S1, +S2. Absent: diastolic murmur, gallop, rubs, systolic murmur - GI/Abdominal GI/Abdominal exam: Present: normal bowel sounds, soft, no peritoneal signs. Absent: distended, tenderness - Extremities Exam Extremities exam: Present: warm, radial pulses palpable and symetrical. Absent : calf tenderness, cyanotic, pedal edema - Neurological Exam Neurological exam: Present: CN II-XII intact, oriented X3, no focal deficits. Absent: pronater drift, facial droop, speech deficit - Skin Skin exam: Present: dry, intact Internal Medicine: Result - Labs CBC & Chem 7: 09/25/16 05:11 09/25/16 05:11 Labs: Short CBC 09/25/16 Range/Units 05:11 WBC 8.0 (4.3-11.1) K/mcL Hgb 10.0 L (12.9-16.9) g/dL Hct 34.1 L (37.5-50.1) % Plt Count 191 (140-400) K/mcL Neutrophils # 7.2 (1.6-8.9) K/mcL BMP 09/25/16 05:11 Sodium 144 Potassium 4.8 H Chloride 101 Carbon Dioxide 42 H* BUN 41 H Creatinine 0.88 Glucose 140 H Calcium 9.4 Liver Function 09/25/16 Range/Units 05:11 Total Bilirubin 0.3 (0.2-1.2) mg/dL AST 24 (5-34) Units/L ALT 16 (0-55) Units/L Alkaline Phosphatase 58 (38-126) Units/L Albumin 3.4 L (3.5-5.0) g/dL - ABG Interpretation ABG results: PT/INR, D-dimer PT 12.1 Seconds (9.4-12.1) 09/21/16 12:11 - VTE Documentation of Mechanical Device: Graduated compression elastic hosiery Consult Discharge Plan - Plan Referrals: Morris Hudson DO [Primary Care Provider] - (sent web request on 09-22-16 @ 1500 Called on 09-24-16 to check on appointments, none given yet)
[2016-09-25] MEDS: OLANZapine 5 MG TAB.RAPDIS PO SCH (21:17)
[2016-09-26] MEDS: Ipratropium/Albuterol Neb 3 ML IH SCH ×7 (00:11→23:47)
[2016-09-26] MEDS: GuaiFENesin Liq 200 MG/10 ML UDC PO SCH ×5 (00:51→23:32)
[2016-09-26] MEDS: *HR* Heparin 5,000 UNIT/ML VIAL SQ SCH ×4 (00:51→23:32)
[2016-09-26 03:51] LABS: Red Cell Distribution Width 13.2 % (11.5-14.5); VBG HCO3 49.8 mEq/L (21-27); VBG PH 7.28 pH Units (7.32-7.42)
[2016-09-26 03:52] LABS: Basophils % 0.3 %; Hematocrit 35.5 % (37.5-50.1); Hemoglobin 10.3 g/dL (12.9-16.9); Lymphocytes # 0.8 K/mcL (0.6-4.6); Lymphocytes % 8.2 %; Mean Corpuscular Hemoglobin 27.2 pg (28.0-33.3); Mean Corpuscular Volume 93.9 fL (83.0-100.0); Mean Platelet Volume 9.5 fL (9.4-12.4); Monocytes # 1.1 K/mcL (0.0-1.3); Monocytes % 11.2 %; Neutrophils # 7.6 K/mcL (1.6-8.9); Platelet Count 198 K/mcL (140-400); Red Blood Count 3.78 M/mcL (4.19-5.50); Segmented Neutrophils % 78.3 %
[2016-09-26 04:06] LABS: Alanine Aminotransferase 18 Units/L (0-55); Albumin 3.4 g/dL (3.5-5.0); Albumin/Globulin Ratio 1.2 (1.1-2.2); Alkaline Phosphatase 56 Units/L (38-126); Aspartate Amino Transferase 24 Units/L (5-34); BUN/Creatinine Ratio 48 (6-26); Bilirubin,Total 0.3 mg/dL (0.2-1.2); Blood Urea Nitrogen 36 mg/dL (8-26); Calcium 9.1 mg/dL (8.6-10.8); Chloride 102 mEq/L (98-109); Globulin 2.8 g/dL (2.4-3.5); Glucose 106 mg/dL (70-99); Osmolality,Calculated 309 (280-300); Potassium 4.6 mEq/L (3.5-4.5); Sodium 145 mEq/L (136-145); Total Protein 6.2 g/dL (6.0-8.3); eGFR For African Americans > 60 (> 60); eGFR For Non-African Americans > 60 (> 60)
[2016-09-26] MEDS: *HR* LORazepam 2 MG/ML VIAL IVP PRN (04:06)
[2016-09-26 04:16] LABS: Carbon Dioxide 42 mEq/L (19-29)
[2016-09-26] MEDS: Budesonide Neb 0.25 MG/2 ML IH SCH ×2 (07:26→21:03)
[2016-09-26] MEDS: levoFLOXacin 500 MG TABLET PO SCH (08:58)
[2016-09-26] MEDS: Diltiazem CD (24hr) 120 MG CAPSULE PO SCH (08:58)
[2016-09-26] MEDS: Venlafaxine XR (24 HR) 150 MG CAP.ER.24H PO SCH (08:58)
[2016-09-26] MEDS: Nystatin SUSP 5 ML UD.LIQ PO SCH ×4 (08:59→23:32)
[2016-09-26] MEDS: Gabapentin 400 MG CAPSULE PO SCH ×2 (08:59→20:28)
[2016-09-26] MEDS: predniSONE 20 MG TABLET PO SCH (08:59)
[2016-09-26 17:33] LABS: ABG PO2 66 mmHg (85-104)
[2016-09-26 17:34] LABS: ABG HCO3 39.6 mEQ/L (21-27); ABG Oxygen Saturation 91 % (95-98); ABG TCO2 50.1 mEq/L (20-26); Blood Gas FiO2 30 %
[2016-09-26 17:36] LABS: ABG PCO2 77 mmHg (35-45)
--- NOTE | 2016-09-26 18:01 | Internal Med Progress Note ---
Date of Encounter: 09/26/16 Time of Encounter: 11:40 - Assessment and plan (1) Acute exacerbation of chronic obstructive airways disease Current Visit: Yes Status: Acute Assessment and plan: 09/25 Known advanced/end-stage COPD s/p lung reduction surgery. Continue levoquin Continue oral steroids Noted to have metabolic alkalosis with CO2 of 45, patient is chronic retainer of PCO2 , VBG ordered stat. Showed PH 7.29, PCO2 100, PO2 54. Patient is awake, alert, looked comfortable, BiPAP has been ordered Will monitor VBG Patient's CODE STATUS is DNR comfort care arrest, he refuses CPR and cardiac resuscitation but is agreeable to temporary elective intubation to improve his respiratory status, may be for a trial of 3 days. High risk condition, at risk for endotracheal intubation and mechanical ventilation. 09/26 Improved with BiPAP, continue same at bedtime ABG a.m Patient is awake , alert, able to complete sentences baseline arterial PCO2 hovers between 60-65. At time of documentation ABG is 7.4 /77/66. O2 Sat 91 COntinue close monitoring patient is DNR-CC-A but would like a trial of intubation if necessary (2) Chronic respiratory failure Current Visit: Yes Status: Chronic Assessment and plan: Patient noted to be on home oxygen for end-stage COPD. He requires outpatient pulmonology follow-up. Qualifiers: Respiratory failure complication: hypoxia Qualified Code(s): J96.11 - Chronic respiratory failure with hypoxia (3) Depression Current Visit: Yes Status: Chronic Assessment and plan: Resume home meds Qualifiers: Depression Type: unspecified Qualified Code(s): F32.9 - Major depressive disorder, single episode, unspecified (4) PTSD (post-traumatic stress disorder) Current Visit: Yes Status: Chronic Assessment and plan: Resume home meds (5) Pulmonary hypertension Current Visit: Yes Status: Chronic Assessment and plan: Continue calcium channel sho. (6) Respiratory failure Current Visit: Yes Status: Acute Assessment and plan: Acute on chronic Qualifiers: Chronicity: acute on chronic Respiratory failure complication: hypoxia and hypercapnia Qualified Code(s): J96.21 - Acute and chronic respiratory failure with hypoxia; J96.22 - Acute and chronic respiratory failure with hypercapnia (7) Obesity (BMI 30.0-34.9) Current Visit: Yes Status: Chronic - Subjective Interval history: 66 Y/O M with advanced COPD s/p lung reduction surgery with FEV of 17% (per patient), with chronic hypoxic respiratory failure being managed for acute on chronic hypoxemic respiratory failure secondary to COPD exacerbation Other PMH significant for HTN, HLD, Pulm HTN, PTSD. Patient had VBG yesterday revealing elevated PCO2, he had refused BiPAP as ordered and insisted on using his own CPAP On review this morning, with his at the bedside, he and his were upset about some miscommunication and services. She also insisted he be seen by a lpn rn-specifically Dr. Henriquez and transferred to the ICU Patient is awake, alert, oriented, not in respiratory distress, he had few scattered expiratory wheezing I discussed with both of them the necessity to have his O2sat between 88-92 not to 97-100 as they constantly wanted it, and the need for non-invasive positive pressure ventilation. They initially refused but subsequently agreed VBG at this time this a.m was 7.28/106/110, HCO3 49.8 After being on BiPAP IPAP/EPAP 16/6 FiO2 30 , RR 27 for 4 hours. ABG showed PH 7.40, PCO2-77, PO2-66, O2sat 91 Patient will be transferred to on request He is educated to keep BiPAP on at bedtime , verbalizes understanding His was informed that Dr. Henriquez is currently on vacation and should the need arise , will consult pulmonology inpatient otherwise will give out-patient appointment - Constitutional Vitals: Temp Pulse Resp BP Pulse Ox 97.4 F L 88 16 144/73 97 09/26/16 16:46 09/26/16 16:46 09/26/16 16:46 09/26/16 16:46 09/26/16 16:46 General appearance: Present: A&O X 3, no acute distress, obese, answers questions appropriately - Head Head exam: Present: atraumatic, normocephalic - Eye Eye exam: Present: PERRL, conjuntiva pink, sclera anicteric Pupils: Present: PERRL - Neck Neck exam general surgery: Present: supple, trachea midline. Absent: lymphadenopathy - Respiratory Respiratory exam: Present: wheezes - Cardiovascular Cardiovascular exam: Present: RRR, +S1, +S2. Absent: diastolic murmur, gallop, rubs, systolic murmur - GI/Abdominal GI/Abdominal exam: Present: normal bowel sounds, soft, no peritoneal signs. Absent: distended, tenderness - Extremities Exam Extremities exam: Present: warm, radial pulses palpable and symetrical. Absent : calf tenderness, cyanotic, pedal edema - Neurological Exam Neurological exam: Present: CN II-XII intact, oriented X3, no focal deficits. Absent: pronater drift, facial droop, speech deficit - Skin Skin exam: Present: dry Additional comments: multiple tattoos Internal Medicine: Result - Labs CBC & Chem 7: 09/26/16 03:35 09/26/16 03:35 Labs: Short CBC 09/26/16 Range/Units 03:35 WBC 9.7 (4.3-11.1) K/mcL Hgb 10.3 L (12.9-16.9) g/dL Hct 35.5 L (37.5-50.1) % Plt Count 198 (140-400) K/mcL Neutrophils # 7.6 (1.6-8.9) K/mcL BMP 09/26/16 03:35 Sodium 145 Potassium 4.6 H Chloride 102 Carbon Dioxide 42 H* BUN 36 H Creatinine 0.75 Glucose 106 H Calcium 9.1 Liver Function 09/26/16 Range/Units 03:35 Total Bilirubin 0.3 (0.2-1.2) mg/dL AST 24 (5-34) Units/L ALT 18 (0-55) Units/L Alkaline Phosphatase 56 (38-126) Units/L Albumin 3.4 L (3.5-5.0) g/dL - ABG Interpretation ABG results: ABG ABG pH 7.40 pH Units (7.32-7.45) 09/26/16 17:25 ABG pCO2 77 mmHg (35-45) H* 09/26/16 17:25 ABG pO2 66 mmHg (85-104) L 09/26/16 17:25 ABG O2 Saturation 91 % (95-98) L 09/26/16 17:25 PT/INR, D-dimer PT 12.1 Seconds (9.4-12.1) 09/21/16 12:11 - VTE Documentation of Mechanical Device: Graduated compression elastic hosiery Consult Discharge Plan - Plan Referrals: Morris Hudson DO [Primary Care Provider] - 09/30/16 12:00 pm ()
[2016-09-26] MEDS: OLANZapine 5 MG TAB.RAPDIS PO SCH (20:28)
[2016-09-27] MEDS: Ipratropium/Albuterol Neb 3 ML IH SCH ×6 (04:07→23:11)
[2016-09-27 04:18] LABS: ABG Base Excess 21.9 mEq/L (-2.0 to 3.0); ABG HCO3 51.4 mEQ/L (21-27); ABG Oxygen Saturation 98 % (95-98); ABG PH 7.36 pH Units (7.32-7.45); ABG PO2 112 mmHg (85-104); ABG TCO2 54.2 mEq/L (20-26); Blood Gas FiO2 28 %
[2016-09-27 04:19] LABS: ABG PCO2 91 mmHg (35-45)
[2016-09-27] MEDS: GuaiFENesin Liq 200 MG/10 ML UDC PO SCH ×4 (06:37→23:28)
[2016-09-27 07:09] LABS: Hemoglobin 10.4 g/dL (12.9-16.9)
[2016-09-27 07:15] LABS: Basophils % 0.3 %; Hematocrit 34.9 % (37.5-50.1); Lymphocytes % 14.9 %; Mean Corpuscular HGB Conc 29.8 g/dL (31.6-35.5); Mean Corpuscular Hemoglobin 27.8 pg (28.0-33.3); Mean Corpuscular Volume 93.3 fL (83.0-100.0); Monocytes # 0.9 K/mcL (0.0-1.3); Monocytes % 13.1 %; Neutrophils # 4.9 K/mcL (1.6-8.9); Platelet Count 189 K/mcL (140-400); Red Blood Count 3.74 M/mcL (4.19-5.50); Segmented Neutrophils % 69.7 %
[2016-09-27 07:25] LABS: BUN/Creatinine Ratio 44 (6-26); Blood Urea Nitrogen 33 mg/dL (8-26); Chloride 99 mEq/L (98-109); Glucose 83 mg/dL (70-99); Osmolality,Calculated 306 (280-300); Potassium 4.2 mEq/L (3.5-4.5); Sodium 145 mEq/L (136-145); eGFR For African Americans > 60 (> 60); eGFR For Non-African Americans > 60 (> 60)
[2016-09-27 07:29] LABS: Carbon Dioxide 44 mEq/L (19-29)
[2016-09-27] MEDS: Budesonide Neb 0.25 MG/2 ML IH SCH ×2 (08:24→20:35)
[2016-09-27 09:07] LABS: Hypochromasia Present (Not Present)
[2016-09-27] MEDS: Diltiazem CD (24hr) 120 MG CAPSULE PO SCH (10:00)
[2016-09-27] MEDS: Venlafaxine XR (24 HR) 150 MG CAP.ER.24H PO SCH (10:00)
[2016-09-27] MEDS: Gabapentin 400 MG CAPSULE PO SCH ×2 (10:00→20:28)
[2016-09-27] MEDS: predniSONE 20 MG TABLET PO SCH (10:00)
[2016-09-27] MEDS: Nystatin SUSP 5 ML UD.LIQ PO SCH ×4 (10:01→20:28)
[2016-09-27] MEDS: *HR* Heparin 5,000 UNIT/ML VIAL SQ SCH ×3 (10:01→23:28)
--- NOTE | 2016-09-27 12:29 | Internal Med Progress Note ---
Date of Encounter: 09/27/16 Time of Encounter: 09:45 - Assessment and plan (1) Acute exacerbation of chronic obstructive airways disease Current Visit: Yes Status: Acute Assessment and plan: 09/25 Known advanced/end-stage COPD s/p lung reduction surgery. Continue levoquin Continue oral steroids Noted to have metabolic alkalosis with CO2 of 45, patient is chronic retainer of PCO2 , VBG ordered stat. Showed PH 7.29, PCO2 100, PO2 54. Patient is awake, alert, looked comfortable, BiPAP has been ordered Will monitor VBG Patient's CODE STATUS is DNR comfort care arrest, he refuses CPR and cardiac resuscitation but is agreeable to temporary elective intubation to improve his respiratory status, may be for a trial of 3 days. High risk condition, at risk for endotracheal intubation and mechanical ventilation. 09/26 Improved with BiPAP, continue same at bedtime ABG a.m Patient is awake , alert, able to complete sentences baseline arterial PCO2 hovers between 60-65. At time of documentation ABG is 7.4 /77/66. O2 Sat 91 COntinue close monitoring patient is DNR-CC-A but would like a trial of intubation if necessary 09/27 Continue current management Target O2 sat is 89-92. Pulmonology eval (2) Chronic respiratory failure Current Visit: Yes Status: Chronic Assessment and plan: Patient noted to be on home oxygen for end-stage COPD. As above Qualifiers: Respiratory failure complication: hypoxia Qualified Code(s): J96.11 - Chronic respiratory failure with hypoxia (3) Depression Current Visit: Yes Status: Chronic Assessment and plan: Resume home meds Qualifiers: Depression Type: unspecified Qualified Code(s): F32.9 - Major depressive disorder, single episode, unspecified (4) PTSD (post-traumatic stress disorder) Current Visit: Yes Status: Chronic Assessment and plan: Resume home meds (5) Pulmonary hypertension Current Visit: Yes Status: Chronic Assessment and plan: Continue calcium channel sho. (6) Respiratory failure Current Visit: Yes Status: Acute Assessment and plan: Acute on chronic Qualifiers: Chronicity: acute on chronic Respiratory failure complication: hypoxia and hypercapnia Qualified Code(s): J96.21 - Acute and chronic respiratory failure with hypoxia; J96.22 - Acute and chronic respiratory failure with hypercapnia (7) Obesity (BMI 30.0-34.9) Current Visit: Yes Status: Chronic - Subjective Interval history: 66 Y/O M with advanced COPD s/p lung reduction surgery with FEV of 17% (per patient), with chronic hypoxic respiratory failure being managed for acute on chronic hypoxemic respiratory failure secondary to COPD exacerbation Other PMH significant for HTN, HLD, Pulm HTN, PTSD. Patient with acute on chronic hypercapneic respiratory failure fro advanced COPD with exacerbation Hypercanea improved with BiPAP yesterday, patient is a chronic retainer Patient seen at bedside, with no new complains states he feels good States he was on BIPAP most of the night Reports some improvement Will consult pulmonology and PT today - Constitutional Vitals: Temp Pulse Resp BP Pulse Ox 97.6 F 89 22 149/88 95 09/27/16 11:27 09/27/16 11:28 09/27/16 11:52 09/27/16 11:27 09/27/16 11:52 General appearance: Present: A&O X 3, no acute distress, obese, answers questions appropriately - Head Head exam: Present: atraumatic, normocephalic - Eye Eye exam: Present: PERRL, conjuntiva pink, sclera anicteric Pupils: Present: PERRL - Neck Neck exam general surgery: Present: supple, trachea midline. Absent: lymphadenopathy - Respiratory Additional comments: Diminished breath sounds bilaterally. No wheezing at time of review, no rhonchi , no rales - Cardiovascular Cardiovascular exam: Present: RRR, +S1, +S2. Absent: diastolic murmur, gallop, rubs, systolic murmur - GI/Abdominal GI/Abdominal exam: Present: normal bowel sounds, soft, no peritoneal signs. Absent: distended, tenderness - Extremities Exam Extremities exam: Present: warm, radial pulses palpable and symetrical. Absent : calf tenderness, cyanotic, pedal edema - Neurological Exam Neurological exam: Present: alert, CN II-XII intact, oriented X3, no focal deficits. Absent: pronater drift, facial droop, speech deficit - Skin Skin exam: Present: dry Internal Medicine: Result - Labs CBC & Chem 7: 09/27/16 05:58 09/27/16 05:58 Labs: Short CBC 09/27/16 Range/Units 05:58 WBC 7.0 (4.3-11.1) K/mcL Hgb 10.4 L (12.9-16.9) g/dL Hct 34.9 L (37.5-50.1) % Plt Count 189 (140-400) K/mcL Neutrophils # 4.9 (1.6-8.9) K/mcL BMP 09/27/16 05:58 Sodium 145 Potassium 4.2 Chloride 99 Carbon Dioxide 44 H* BUN 33 H Creatinine 0.75 Glucose 83 Calcium 9.0 - ABG Interpretation ABG results: ABG ABG pH 7.36 pH Units (7.32-7.45) 09/27/16 04:04 ABG pCO2 91 mmHg (35-45) H* 09/27/16 04:04 ABG pO2 112 mmHg (85-104) H 09/27/16 04:04 ABG O2 Saturation 98 % (95-98) 09/27/16 04:04 PT/INR, D-dimer PT 12.1 Seconds (9.4-12.1) 09/21/16 12:11 - VTE Documentation of Mechanical Device: Graduated compression elastic hosiery Consult Discharge Plan - Plan Referrals: Morris Hudson DO [Primary Care Provider] - 09/30/16 12:00 pm ()
--- NOTE | 2016-09-27 14:49 | Pulmonology Consult Note ---
Date of Encounter: 09/27/16 Time of Encounter: 14:46 Assessment and Plan (1) Acute on chronic respiratory failure with hypoxia and hypercapnia Current Visit: Yes Status: Acute This is likely secondary to chronic underlying severe COPD with acute exacerbation. With bilevel positive airway pressure support at this time. I have adjusted his IPAP to EPAP ratio 2 in improved ventilation. Go PCO2 would be somewhere between 60-70 in this gentleman. Think we can achieve this over the morning would repeat ABG in the a.m. Important to keep oxygen saturations about 92% but no higher to prevent V/Q mismatch. I would also recommend likely discharge in patient with BiPAP as opposed to just CPAP in the future Encouraged patient to begin to follow with pulmonary here at [place] at his discharge (2) Metabolic alkalosis Current Visit: Yes Status: Acute Chronic respiratory alkalosis which is compensation for his respiratory acidosis given the severity of HCO3 on the metabolic panel actually opt to give him a dose of visit is my now as we continue to adjust his chronic respiratory acidosis he will need daily renal function panels. Chloride and potassium are in normal limits (3) Acute exacerbation of chronic obstructive airways disease Current Visit: Yes Status: Acute Likely secondary to viral bronchitis. Agree with bronchodilators continue IV steroids overall appears to be making progress on this I did send off a respiratory infectious panel (4) Obesity (BMI 30.0-34.9) Current Visit: Yes Status: Chronic The main weight loss through dietary modification and exercise as tolerated be good candidate for pulmonary rehabilitation at discharge (5) Pulmonary hypertension Current Visit: Yes Status: Chronic Likely group 3 disease secondary to severe hypoxemia recommend repeat echo History of Present Illness Consult date: 09/27/16 Requesting physician: Júnior Nciholson Reason for consult: COPD Chief complaint: Dyspnea History of present illness: This is a very pleasant 66-year-old gentleman with a history of advanced COPD s/ p post lung volume reduction surgery greater than a decade ago. He was admitted with a COPD exacerbation and was noted to have severe acute on chronic hypoxic hypercarbic respiratory failure. States that for about a week prior to admission he noticed increased shortness of breath cough with productive sputum. He has not been hospitalized in several years. Compliant with all medications at home. Uses CPAP at night for COPD. Since he has been here he has been intermittently refusing to wear noninvasive ventilation despite PCO2 greater than 100 at times. When I spoke with him now he is currently wearing it and is comfortable has been receiving bronchodilator steroids. Tobacco abuse is in remission. Past Med Surg Social Fam HX - Past Medical History Medical history: COPD Psychiatric history: anxiety, PTSD - Past Surgical History Surgical History: herniorrhaphy, orthopedic, other, sinus surgery, other - Social History Smoking Status: Former smoker Smokeless Tobacco Status: No Alcohol use: none Drug use: none Medications and Allergies Albuterol Neb [Proventil Neb] 2.5 mg IH TID PRN 05/09/15 [History] Albuterol Sulfate [Proair HFA] 2 puff IH Q4HR PRN 05/09/15 [History] Arformoterol Tartrate [Brovana] 15 mcg IH BID 05/09/15 [History] Aspirin 325 mg PO DAILY 05/09/15 [History] Atorvastatin Calcium [Lipitor] 40 mg PO QAM 05/09/15 [History] Budesonide Neb [Pulmicort Neb] 0.25 mg IH BID 05/09/15 [History] ClonazePAM [Klonopin] 2 mg PO HS 05/09/15 [History] Diltiazem CD (24hr) [Cardizem CD] 120 mg PO QAM 05/09/15 [History] Docusate Sodium [Dulcolax Stool Softener] 100 mg PO BID 05/09/15 [History] Gabapentin [Neurontin] 1,600 mg PO HS 05/09/15 [History] Gabapentin [Neurontin] 1,600 mg PO QAM 05/09/15 [History] Oxygen 3 l NS AD 05/09/15 [History] Pantoprazole Sodium [Protonix] 40 mg PO QAM 05/09/15 [History] Polyethylene Glycol 3350 [MiraLAX] 17 gm PO DAILY PRN 05/09/15 [History] Tiotropium [Spiriva] 1 puff IH QAM 05/09/15 [History] Travoprost [Travatan Z] 1 drop OP HS 05/09/15 [History] Ciclopirox Olamine [Ciclopirox] 1 appl TP DAILY PRN 09/21/16 [History] Doxycycline Hyclate [Morgidox] 100 mg PO BID 09/21/16 [History] Furosemide [Lasix] 20 mg PO DAILY PRN 09/21/16 [History] OLANZapine [Zyprexa] 5 mg PO 09/21/16 [History] Potassium Chloride [K-Tab ER] 10 meq PO DAILY PRN 09/21/16 [History] PredniSONE 10 mg PO AD 09/21/16 [History] Venlafaxine HCl [Venlafaxine HCl ER] 150 mg PO QAM 09/21/16 [History] Allergies hydrocodone [From Vicodin] Allergy (Mild, Verified 09/21/16 12:02) Rash Skin peeling Penicillins [PCN] Allergy (Mild, Verified 09/21/16 12:02) Rash acetaminophen [From Vicodin] Allergy (Verified 09/21/16 12:02) Rash All Systems: A 10-system review of systems was performed and is negative for pertinent findings except as documented above in the HPI. Physical Examination Vital Signs: Vital Signs, Last 4 Hours Temp Pulse Resp BP Pulse Ox 09/27/16 11:52 22 95 09/27/16 11:28 89 09/27/16 11:27 97.6 F 88 18 149/88 94 L General appearance: no acute distress ENT: oropharynx moist Effort: mildly labored Auscultation: bilateral: diminished breath sounds, wheezes Cardiovascular: regular rate and rhythm Gastrointestinal: normoactive bowel sounds, non-tender Extremities: no cyanosis Musculoskeletal: no deformities normal mental status, non-focal exam mood appropriate Results - Laboratory Findings CBC and BMP: 09/27/16 05:58 09/27/16 05:58 ABG ABG pH 7.36 pH Units (7.32-7.45) 09/27/16 04:04 ABG pCO2 91 mmHg (35-45) H* 09/27/16 04:04 ABG pO2 112 mmHg (85-104) H 09/27/16 04:04 ABG O2 Saturation 98 % (95-98) 09/27/16 04:04 PT/INR, D-dimer PT 12.1 Seconds (9.4-12.1) 09/21/16 12:11 Abnormal lab findings: Abnormal lab results RBC 3.74 M/mcL (4.19-5.50) L 09/27/16 05:58 Hgb 10.4 g/dL (12.9-16.9) L 09/27/16 05:58 Hct 34.9 % (37.5-50.1) L 09/27/16 05:58 MCH 27.8 pg (28.0-33.3) L 09/27/16 05:58 MCHC 29.8 g/dL (31.6-35.5) L 09/27/16 05:58 Hypochromasia Present (Not Present) A 09/27/16 05:58 ABG pCO2 91 mmHg (35-45) H* 09/27/16 04:04 ABG pO2 112 mmHg (85-104) H 09/27/16 04:04 ABG HCO3 51.4 mEQ/L (21-27) H 09/27/16 04:04 ABG Total CO2 54.2 mEq/L (20-26) H 09/27/16 04:04 ABG Base Excess 21.9 mEq/L (-2.0 to 3.0) H 09/27/16 04:04 VBG pH 7.28 pH Units (7.32-7.42) L 09/26/16 03:35 VBG pCO2 106 mmHg (41-51) H 09/26/16 03:35 VBG pO2 110 mmHg (25-40) H 09/26/16 03:35 VBG HCO3 49.8 mEq/L (21-27) H 09/26/16 03:35 Carbon Dioxide 44 mEq/L (19-29) H* 09/27/16 05:58 BUN 33 mg/dL (8-26) H 09/27/16 05:58 BUN/Creatinine Ratio 44 (6-26) H 09/27/16 05:58 POC Glucose 156 (58-89) H 09/23/16 20:06 Calculated Osmolality 306 (280-300) H 09/27/16 05:58 B-Natriuretic Peptide 187 pg/mL (0-100) H 09/21/16 12:11 Albumin 3.4 g/dL (3.5-5.0) L 09/26/16 03:35 - Diagnostic Findings Chest x-ray: report reviewed, image reviewed CT scan - chest: report reviewed, image reviewed - Clinical Findings Intake & Output: Intake & Output 09/26/16 09/27/16 09/27/16 23:59 07:59 15:59 Intake Total 420 / 420 480 / 480 Output Total 550 / 550 Balance -130 / -130 480 / 480 Weight 92 kg Consult Discharge Plan - Plan Referrals: Morris Hudson DO [Primary Care Provider] - 09/30/16 12:00 pm ()
[2016-09-27] MEDS: *HR* OxyCODONE/APAP 5/325 TABLET PO PRN (20:28)
[2016-09-27] MEDS: OLANZapine 5 MG TAB.RAPDIS PO SCH (20:28)
[2016-09-28] MEDS: Ipratropium/Albuterol Neb 3 ML IH SCH ×5 (03:58→20:49)
[2016-09-28 04:08] LABS: ABG Base Excess 19.5 mEq/L (-2.0 to 3.0); ABG HCO3 48.5 mEQ/L (21-27); ABG Oxygen Saturation 93 % (95-98); ABG PH 7.38 pH Units (7.32-7.45); ABG PO2 67 mmHg (85-104); Blood Gas FiO2 28 %
[2016-09-28 04:10] LABS: ABG PCO2 82 mmHg (35-45)
[2016-09-28] MEDS: GuaiFENesin Liq 200 MG/10 ML UDC PO SCH ×4 (05:09→23:40)
[2016-09-28 05:47] LABS: Basophils % 0.4 %; Eosinophils % 0.1 %; Hematocrit 36.6 % (37.5-50.1); Lymphocytes % 14.4 %; Mean Corpuscular HGB Conc 30.1 g/dL (31.6-35.5); Mean Corpuscular Volume 89.9 fL (83.0-100.0); Mean Platelet Volume 9.5 fL (9.4-12.4); Monocytes # 0.7 K/mcL (0.0-1.3); Neutrophils # 5.2 K/mcL (1.6-8.9); Platelet Count 204 K/mcL (140-400); Red Blood Count 4.07 M/mcL (4.19-5.50); Segmented Neutrophils % 73.1 %
[2016-09-28 06:49] LABS: Adenovirus Not Detected (Not Detect); Bordetella Pertussis Not Detected (Not Detect); Chlamydophila pneumoniae Not Detected (Not Detect); Coronavirus 229E Not Detected (Not Detect); Coronavirus HKU1 Not Detected (Not Detect); Coronavirus NL63 Not Detected (Not Detect); Coronavirus OC43 Not Detected (Not Detect); Human Metapneumovirus Not Detected (Not Detect); Human Rhinovirus/Enterovirus Not Detected (Not Detect); Influenza A Subtype 2009 H1 Not Detected (Not Detect); Influenza A Untypeable Not Detected (Not Detect); Influenza B Not Detected (Not Detect); Mycoplasma pneumoniae Not Detected (Not Detect); Parainfluenza Virus 1 Not Detected (Not Detect); Parainfluenza Virus 2 Not Detected (Not Detect); Parainfluenza Virus 3 Not Detected (Not Detect); Parainfluenza Virus 4 Not Detected (Not Detect); Respiratory Syncytial Virus ***DETECTED*** (Not Detect)
[2016-09-28] MEDS: acetaZOLAMIDE 250 MG TABLET PO SCH (08:23)
[2016-09-28] MEDS: Diltiazem CD (24hr) 180 MG CAPSULE PO SCH (08:23)
[2016-09-28] MEDS: predniSONE 20 MG TABLET PO SCH (08:23)
[2016-09-28] MEDS: Gabapentin 400 MG CAPSULE PO SCH ×2 (08:23→20:11)
[2016-09-28] MEDS: Nystatin SUSP 5 ML UD.LIQ PO SCH ×4 (08:23→20:11)
[2016-09-28] MEDS: Venlafaxine XR (24 HR) 150 MG CAP.ER.24H PO SCH (08:23)
[2016-09-28] MEDS: *HR* Heparin 5,000 UNIT/ML VIAL SQ SCH ×3 (08:24→23:40)
[2016-09-28] MEDS: Budesonide Neb 0.25 MG/2 ML IH SCH ×2 (10:22→23:58)
--- NOTE | 2016-09-28 14:52 | Internal Med Progress Note ---
Date of Encounter: 09/28/16 Time of Encounter: 10:00 - Assessment and plan (1) Acute exacerbation of chronic obstructive airways disease Current Visit: Yes Status: Acute Assessment and plan: Continue current management Target O2 sat is 89-92. Pulmonology eval appreciated SW for home BiPAP patient is DNR-CC-A but would like a trial of intubation if necessary (2) Chronic respiratory failure Current Visit: Yes Status: Chronic Assessment and plan: Patient noted to be on home oxygen for end-stage COPD. As above Qualifiers: Respiratory failure complication: hypoxia Qualified Code(s): J96.11 - Chronic respiratory failure with hypoxia (3) Depression Current Visit: Yes Status: Chronic Assessment and plan: Resume home meds Qualifiers: Depression Type: unspecified Qualified Code(s): F32.9 - Major depressive disorder, single episode, unspecified (4) PTSD (post-traumatic stress disorder) Current Visit: Yes Status: Chronic Assessment and plan: Resume home meds (5) Pulmonary hypertension Current Visit: Yes Status: Chronic Assessment and plan: Continue calcium channel sho. Dose increased due to uncontrolled BP (6) Respiratory failure Current Visit: Yes Status: Acute Assessment and plan: Acute on chronic Qualifiers: Chronicity: acute on chronic Respiratory failure complication: hypoxia and hypercapnia Qualified Code(s): J96.21 - Acute and chronic respiratory failure with hypoxia; J96.22 - Acute and chronic respiratory failure with hypercapnia (7) Obesity (BMI 30.0-34.9) Current Visit: Yes Status: Chronic - Subjective Interval history: 66 Y/O M with advanced COPD s/p lung reduction surgery with FEV of 17% (per patient), with chronic hypoxic respiratory failure being managed for acute on chronic hypoxemic respiratory failure secondary to COPD exacerbation Other PMH significant for HTN, HLD, Pulm HTN, PTSD. Patient with acute on chronic hypercapneic respiratory failure fro advanced COPD with exacerbation Hypercanea improved with BiPAP yesterday, patient is a chronic retainer Patient seen at bedside, with no new complains states he feels good States he was on BIPAP most of the night Reports some improvement with BiPAP Pulmonology consult appreciated, recommends BiPAP at home - Constitutional Vitals: Temp Pulse Resp BP Pulse Ox 98.2 F 85 16 169/88 93 L 09/28/16 11:21 09/28/16 11:54 09/28/16 11:21 09/28/16 11:21 09/28/16 11:21 General appearance: Present: A&O X 3, no acute distress, obese, answers questions appropriately - Head Head exam: Present: atraumatic, normocephalic - Eye Eye exam: Present: PERRL, conjuntiva pink, sclera anicteric Pupils: Present: PERRL - Neck Neck exam general surgery: Present: supple, trachea midline. Absent: lymphadenopathy - Respiratory Respiratory exam: Present: wheezes - Cardiovascular Cardiovascular exam: Present: RRR, +S1, +S2, systolic murmur - GI/Abdominal GI/Abdominal exam: Present: normal bowel sounds, soft, no peritoneal signs. Absent: distended, tenderness - Extremities Exam Extremities exam: Present: warm, radial pulses palpable and symetrical. Absent : calf tenderness, cyanotic, pedal edema - Neurological Exam Neurological exam: Present: CN II-XII intact, oriented X3, no focal deficits. Absent: pronater drift, facial droop, speech deficit - Skin Skin exam: Present: dry Internal Medicine: Result - Labs CBC & Chem 7: 09/28/16 05:07 09/27/16 05:58 Labs: Short CBC 09/28/16 Range/Units 05:07 WBC 7.2 (4.3-11.1) K/mcL Hgb 11.0 L (12.9-16.9) g/dL Hct 36.6 L (37.5-50.1) % Plt Count 204 (140-400) K/mcL Neutrophils # 5.2 (1.6-8.9) K/mcL - ABG Interpretation ABG results: ABG ABG pH 7.38 pH Units (7.32-7.45) 09/28/16 03:55 ABG pCO2 82 mmHg (35-45) H* 09/28/16 03:55 ABG pO2 67 mmHg (85-104) L 09/28/16 03:55 ABG O2 Saturation 93 % (95-98) L 09/28/16 03:55 PT/INR, D-dimer PT 12.1 Seconds (9.4-12.1) 09/21/16 12:11 - VTE Documentation of Mechanical Device: Graduated compression elastic hosiery Consult Discharge Plan - Plan Referrals: Morris Hudson DO [Primary Care Provider] - 09/30/16 12:00 pm ()
--- NOTE | 2016-09-28 14:57 | Pulmonology Progress Note ---
Date of Encounter: 09/28/16 Time of Encounter: 14:56 Assessment and Plan (1) Acute on chronic respiratory failure with hypoxia and hypercapnia Current Visit: Yes Status: Acute Secondary to COPD exacerbation with severe underlying COPD. Improved respiratory acidosis overnight with adjustment of IPAP will adjust again tonight to IPAP 16 EPAP 4 blood gas in the morning I gave him another dose of Diamox Platelet need be discharged on BiPAP goal PCO2 60-70 Weight oxygen saturation to keep SPO2 approximately 89 and 92% Recommend follow-up in pulmonary clinic (2) Metabolic alkalosis Current Visit: Yes Status: Acute Chronic metabolic alkalosis secondary to respiratory acidosis Continue to monitor for post-hypercapnic alkalosis Diamox as needed (3) Acute exacerbation of chronic obstructive airways disease Current Visit: Yes Status: Acute Agree with continued IV steroids continue bronchodilators and metered-dose inhalers and needs to make interval improvement can wear BiPAP. A for increased work of breathing (4) Obesity (BMI 30.0-34.9) Current Visit: Yes Status: Chronic Counseled on possibility of weight loss and pursuing pulmonary rehabilitation at discharge (5) Pulmonary hypertension Current Visit: Yes Status: Chronic Likely secondary to group 3 disease recommend repeating echo Subjective Principal diagnosis: Respiratory failure Interval history: Where BiPAP most of yesterday and overnight tolerated fine. His breathing continues to slowly improve denies any other complaint Objective PUL Vital signs: Last Vital Signs Temp 98.2 F 09/28/16 11:21 Pulse 85 09/28/16 11:54 Resp 16 09/28/16 11:21 BP 169/88 09/28/16 11:21 Pulse Ox 93 L 09/28/16 11:21 General appearance: no acute distress Effort: mildly labored Auscultation: bilateral: diminished breath sounds, wheezes Gastrointestinal: normoactive bowel sounds, non-tender Integumentary: normal Extremities: no edema normal mental status, non-focal exam mood appropriate Results - Laboratory Findings CBC and BMP: 09/28/16 05:07 09/27/16 05:58 ABG ABG pH 7.38 pH Units (7.32-7.45) 09/28/16 03:55 ABG pCO2 82 mmHg (35-45) H* 09/28/16 03:55 ABG pO2 67 mmHg (85-104) L 09/28/16 03:55 ABG O2 Saturation 93 % (95-98) L 09/28/16 03:55 PT/INR, D-dimer PT 12.1 Seconds (9.4-12.1) 09/21/16 12:11 Abnormal lab findings: Abnormal lab results RBC 4.07 M/mcL (4.19-5.50) L 09/28/16 05:07 Hgb 11.0 g/dL (12.9-16.9) L 09/28/16 05:07 Hct 36.6 % (37.5-50.1) L 09/28/16 05:07 MCH 27.0 pg (28.0-33.3) L 09/28/16 05:07 MCHC 30.1 g/dL (31.6-35.5) L 09/28/16 05:07 Hypochromasia Present (Not Present) A 09/27/16 05:58 ABG pCO2 82 mmHg (35-45) H* 09/28/16 03:55 ABG pO2 67 mmHg (85-104) L 09/28/16 03:55 ABG HCO3 48.5 mEQ/L (21-27) H 09/28/16 03:55 ABG Total CO2 51.0 mEq/L (20-26) H 09/28/16 03:55 ABG O2 Saturation 93 % (95-98) L 09/28/16 03:55 ABG Base Excess 19.5 mEq/L (-2.0 to 3.0) H 09/28/16 03:55 VBG pH 7.28 pH Units (7.32-7.42) L 09/26/16 03:35 VBG pCO2 106 mmHg (41-51) H 09/26/16 03:35 VBG pO2 110 mmHg (25-40) H 09/26/16 03:35 VBG HCO3 49.8 mEq/L (21-27) H 09/26/16 03:35 Carbon Dioxide 44 mEq/L (19-29) H* 09/27/16 05:58 BUN 33 mg/dL (8-26) H 09/27/16 05:58 BUN/Creatinine Ratio 44 (6-26) H 09/27/16 05:58 POC Glucose 156 (58-89) H 09/23/16 20:06 Calculated Osmolality 306 (280-300) H 09/27/16 05:58 B-Natriuretic Peptide 187 pg/mL (0-100) H 09/21/16 12:11 Albumin 3.4 g/dL (3.5-5.0) L 09/26/16 03:35 RSV (PCR) DETECTED (Not Detect) A 09/28/16 05:20 - Clinical Findings Intake & Output: Intake & Output 09/27/16 09/28/16 09/28/16 23:59 07:59 15:59 Intake Total 240 / 240 170 / 170 Output Total 900 / 900 Balance 240 / 240 -730 / -730 Weight 89 kg - VTE Documentation of Mechanical Device: Graduated compression elastic hosiery Consult Discharge Plan - Plan Referrals: Morris Hudson DO [Primary Care Provider] - 09/30/16 12:00 pm ()
[2016-09-28] MEDS ORDERED: acetaZOLAMIDE 250 MG TABLET PO ONE (14:58)
[2016-09-28] MEDS: OLANZapine 5 MG TAB.RAPDIS PO SCH (20:11)
[2016-09-28] MEDS: *HR* OxyCODONE/APAP 5/325 TABLET PO PRN (23:40)
[2016-09-29] MEDS: Ipratropium/Albuterol Neb 3 ML IH SCH ×4 (00:10→12:01)
[2016-09-29] MEDS: GuaiFENesin Liq 200 MG/10 ML UDC PO SCH ×2 (05:16→12:11)
[2016-09-29] MEDS: Budesonide Neb 0.25 MG/2 ML IH SCH (08:15)
[2016-09-29] MEDS: *HR* Heparin 5,000 UNIT/ML VIAL SQ SCH (08:41)
[2016-09-29] MEDS: Nystatin SUSP 5 ML UD.LIQ PO SCH ×2 (08:41→12:11)
[2016-09-29] MEDS: Gabapentin 400 MG CAPSULE PO SCH (08:42)
[2016-09-29] MEDS: Diltiazem CD (24hr) 180 MG CAPSULE PO SCH (08:42)
[2016-09-29] MEDS: predniSONE 20 MG TABLET PO SCH (08:42)
[2016-09-29] MEDS: Venlafaxine XR (24 HR) 150 MG CAP.ER.24H PO SCH (08:42)
[2016-09-29] MEDS: acetaZOLAMIDE 250 MG TABLET PO SCH (08:43)
[2016-09-29 09:20] LABS: ABG Base Excess 4.5 mEq/L (-2.0 to 3.0); ABG HCO3 33.2 mEQ/L (21-27); ABG Oxygen Saturation 99 % (95-98); ABG PCO2 69 mmHg (35-45); ABG PH 7.29 pH Units (7.32-7.45); ABG PO2 127 mmHg (85-104); ABG TCO2 35.3 mEq/L (20-26)
[2016-09-29 09:27] LABS: Blood Gas FiO2 36 %
--- NOTE | 2016-09-29 10:37 | Physician Discharge Referral ---
Home Health/Hosp Referral Info Transfer to: Home Health Attending Provider: Lyn - Diagnosis (1) Acute exacerbation of chronic obstructive airways disease Priority: Primary Status: Acute (2) Chronic respiratory failure Priority: Secondary Status: Chronic (3) Depression Priority: Secondary Status: Chronic (4) PTSD (post-traumatic stress disorder) Priority: Secondary Status: Chronic (5) Pulmonary hypertension Priority: Secondary Status: Chronic (6) Respiratory failure Priority: Primary Status: Acute (7) Obesity (BMI 30.0-34.9) Priority: Secondary Status: Chronic - Respiratory Orders Oxygen / L per min (2L per minute target O2Sat) Smoking Cessation: Smoking cessation has been advised. For more information, call the [employer] Tobacco Quit Line at 2-260-UDKG-NOW. - Diet/Nutrition Diet/Nutrition Orders: Cardiac - Services Needed Following services are medically necessary services: Home Health Aide - Transfer Medications Home Medications: Albuterol Neb [Proventil Neb] 2.5 mg IH TID PRN 05/09/15 [History] Albuterol Sulfate [Proair HFA] 2 puff IH Q4HR PRN 05/09/15 [History] Arformoterol Tartrate [Brovana] 15 mcg IH BID 05/09/15 [History] Aspirin 325 mg PO DAILY 05/09/15 [History] Atorvastatin Calcium [Lipitor] 40 mg PO QAM 05/09/15 [History] Budesonide Neb [Pulmicort Neb] 0.25 mg IH BID 05/09/15 [History] ClonazePAM [Klonopin] 2 mg PO HS 05/09/15 [History] Diltiazem CD (24hr) [Cardizem CD] 120 mg PO QAM 05/09/15 [History] Docusate Sodium [Dulcolax Stool Softener] 100 mg PO BID 05/09/15 [History] Gabapentin [Neurontin] 1,600 mg PO HS 05/09/15 [History] Gabapentin [Neurontin] 1,600 mg PO QAM 05/09/15 [History] Oxygen 3 l NS AD 05/09/15 [History] Pantoprazole Sodium [Protonix] 40 mg PO QAM 05/09/15 [History] Polyethylene Glycol 3350 [MiraLAX] 17 gm PO DAILY PRN 05/09/15 [History] Tiotropium [Spiriva] 1 puff IH QAM 05/09/15 [History] Travoprost [Travatan Z] 1 drop OP HS 05/09/15 [History] Ciclopirox Olamine [Ciclopirox] 1 appl TP DAILY PRN 09/21/16 [History] Doxycycline Hyclate [Morgidox] 100 mg PO BID 09/21/16 [History] Furosemide [Lasix] 20 mg PO DAILY PRN 09/21/16 [History] OLANZapine [Zyprexa] 5 mg PO 09/21/16 [History] Potassium Chloride [K-Tab ER] 10 meq PO DAILY PRN 09/21/16 [History] PredniSONE 10 mg PO AD 09/21/16 [History] Venlafaxine HCl [Venlafaxine HCl ER] 150 mg PO QAM 09/21/16 [History] Allergies/Adverse Reactions: Allergies hydrocodone [From Vicodin] Allergy (Mild, Verified 09/21/16 12:02) Rash Skin peeling Penicillins [PCN] Allergy (Mild, Verified 09/21/16 12:02) Rash acetaminophen [From Vicodin] Allergy (Verified 09/21/16 12:02) Rash Certification: Further, I certify that my clinical findings support that this patient is homebound (i.e. absences from home require considerable and taxing effort and are for medical reasons or roman cath[employer] services or infrequently or short duration when for other reasons) because: Homebound Reason: Leaving home requires considerable and taxing effort due to condition, Severity of cardiac or pulmonary status limits activity tolerance Attestation: My signature below is to certify that this patient is under my care and that I, or nurse practitioner, or a physician's engineering inspection assistant working with me, has a face-to -face encounter with this patient.
[2016-09-29 12:07] VITALS: BP 140/77
--- NOTE | 2016-09-29 12:35 | Discharge Summary ---
Date of Encounter: 09/29/16 Time of Encounter: 09:00 - Discharge Diagnosis (1) Acute exacerbation of chronic obstructive airways disease Priority: Primary Status: Resolved (2) Chronic respiratory failure Priority: Secondary Status: Chronic Qualifiers: Respiratory failure complication: hypoxia Qualified Code(s): J96.11 - Chronic respiratory failure with hypoxia (3) Depression Priority: Secondary Status: Chronic Qualifiers: Depression Type: unspecified Qualified Code(s): F32.9 - Major depressive disorder, single episode, unspecified (4) PTSD (post-traumatic stress disorder) Priority: Secondary Status: Chronic (5) Pulmonary hypertension Priority: Secondary Status: Chronic (6) Respiratory failure Priority: Primary Status: Acute Qualifiers: Chronicity: acute on chronic Respiratory failure complication: hypoxia and hypercapnia Qualified Code(s): J96.21 - Acute and chronic respiratory failure with hypoxia; J96.22 - Acute and chronic respiratory failure with hypercapnia (7) Obesity (BMI 30.0-34.9) Priority: Secondary Status: Chronic - Discharge Medications Prescriptions: PredniSONE 5 mg PO DAILY #15 tablet Home Medications: Albuterol Neb [Proventil Neb] 2.5 mg IH TID PRN 05/09/15 [History] Albuterol Sulfate [Albuterol Inhaler] 2 puff IH Q4HR PRN 05/09/15 [History] Arformoterol Tartrate [Brovana] 15 mcg IH BID 05/09/15 [History] Aspirin 325 mg PO DAILY 05/09/15 [History] Atorvastatin Calcium [Lipitor] 40 mg PO QAM 05/09/15 [History] Budesonide Neb [Pulmicort Neb] 0.25 mg IH BID 05/09/15 [History] ClonazePAM [Klonopin] 2 mg PO HS 05/09/15 [History] Diltiazem CD (24hr) [Cardizem CD] 120 mg PO QAM 05/09/15 [History] Docusate Sodium [Dulcolax Stool Softener] 100 mg PO BID 05/09/15 [History] Gabapentin [Neurontin] 1,600 mg PO HS 05/09/15 [History] Gabapentin [Neurontin] 1,600 mg PO QAM 05/09/15 [History] Oxygen 3 l NS AD 05/09/15 [History] Pantoprazole Sodium [Protonix] 40 mg PO QAM 05/09/15 [History] Polyethylene Glycol 3350 [MiraLAX] 17 gm PO DAILY PRN 05/09/15 [History] Tiotropium [Spiriva] 1 puff IH QAM 05/09/15 [History] Travoprost [Travatan Z] 1 drop OP HS 05/09/15 [History] Ciclopirox Olamine [Ciclopirox] 1 appl TP DAILY PRN 09/21/16 [History] Furosemide [Lasix] 20 mg PO DAILY PRN 09/21/16 [History] OLANZapine [Zyprexa] 5 mg PO 09/21/16 [History] Potassium Chloride [K-Tab ER] 10 meq PO DAILY PRN 09/21/16 [History] Venlafaxine HCl [Venlafaxine HCl ER] 150 mg PO QAM 09/21/16 [History] PredniSONE 5 mg PO DAILY #15 tablet 09/29/16 [Rx] Allergies/Adverse Reactions: Allergies hydrocodone [From Vicodin] Allergy (Mild, Verified 09/21/16 12:02) Rash Skin peeling Penicillins [PCN] Allergy (Mild, Verified 09/21/16 12:02) Rash acetaminophen [From Vicodin] Allergy (Verified 09/21/16 12:02) Rash Date of admission: 09/21/16 14:00 Primary care physician: Cale Malagon Consults: 09/25/16 15:46 Consult to Shuttle Van Driver [CONS] Routine Reason for SW Consult: Family request 09/26/16 18:08 Consult to Physical Therapy [CONS] Routine Comment: Evaluate, develop and implement POC 09/27/16 07:50 Consult to Pulmonology [CONS] Routine Consulting Provider: [facility] [place] Reason for Consult: Advancedend-stage COPD, [id number]-a, admitted for exacerbation with hypercapnea, improved initially on BiPAP, not compliant, requesting pulmonary eval. Call Completed: No 09/27/16 15:15 Consult to Shuttle Van Driver [CONS] Routine Reason for SW Consult: Needs BiPAP at time of disharge Discharging clinician: Júnior Nicholson Anticipated date of discharge: 09/29/16 - Patient Status Disposition: Home Health Service Condition: Fair Functional capacity at discharge: independent ambulation Overall status at discharge: patient is progressing back to baseline - Discharge Instructions Instructions: Chronic Obstructive Pulmonary Disease (DC) Follow Up With: Lizeth Cortez MD [Partnered Physician] - 10/24/16 11:00 am Morris Hudson DO [Primary Care Provider] - 10/07/16 1:30 pm () Forms: ED Satisfaction Letter - Diet and Activity Activity: resume usual activities as tolerated, wear oxygen at all times, other (Wear BiPAP at night) Interval History: See below Hospital course: Mr. Bess is a 66 year old male with COPD s/p bilateral partial lung reduction surgery, chronic respiratory failure on oxygen and CPAP, PTSD, Depression admitted for acute on chronic hypercapneic respiratory failure secondary to acute bronchitis possiby from RSV He is a chronic retainer with chronic metabolic alkalosis and chronic hypercapnea In-patient management with BiPAP, intravenous and oral steroids, antibiotics was instituted Initial non-improvement due to non-compliance with BiPAP, however patient promptly improved after complaince with BIPAP He was also reviewed by Pulmonology He has completed 6 days of oral antibiotics inpatient He is discharged to continue prednisone taper at home and keep BiPAP every night with current settings, BiPAP company aware Has received both Flu and Pneumococcal vaccine Also patient noted to crank his oxygen up till he is saturating 96-100%. he is educated about goal O2 f 89-92% to prevent decreased respiratory drive He will follow up with PCP and Pulmonology Plan discussed with patient, verbalizes understanding - Time Spent with Patient Total time spent providing and/or coordinating discharge services: Less than 30 minutes - Constitutional Vitals: Temp Pulse Resp BP Pulse Ox 96.6 F L 86 20 140/77 93 L 09/29/16 12:05 09/29/16 12:18 09/29/16 12:05 09/29/16 12:05 09/29/16 12:05 General appearance: Present: A&O X 3, no acute distress, obese, answers questions appropriately - Head Head exam: Present: atraumatic, normocephalic - Eye Eye exam: Present: PERRL, conjuntiva pink, sclera anicteric Pupils: Present: PERRL - Neck Neck exam general surgery: Present: supple, trachea midline. Absent: lymphadenopathy - Respiratory Respiratory exam: Present: CTAB. Absent: accessory muscle use, rales, rhonchi, wheezes - Cardiovascular Cardiovascular exam: Present: RRR, +S1, +S2. Absent: diastolic murmur, gallop, rubs, systolic murmur - GI/Abdominal GI/Abdominal exam: Present: normal bowel sounds, soft, no peritoneal signs. Absent: distended, tenderness - Extremities Exam Extremities exam: Present: warm, radial pulses palpable and symetrical. Absent : calf tenderness, cyanotic, pedal edema - Neurological Exam Neurological exam: Present: CN II-XII intact, oriented X3, no focal deficits. Absent: pronater drift, facial droop, speech deficit - Skin Skin exam: Present: dry, intact - VTE Documentation of Mechanical Device: Graduated compression elastic hosiery
--- NOTE | 2016-09-29 16:32 | Pulmonology Progress Note ---
Date of Encounter: 09/29/16 Time of Encounter: 07:40 Assessment and Plan (1) Chronic respiratory failure Current Visit: Yes Status: Chronic Advised patient to use his BiPAP during daytime on-off and continue his treatment. He can follow up as outpatient. Qualifiers: Respiratory failure complication: hypoxia Qualified Code(s): J96.11 - Chronic respiratory failure with hypoxia (2) Acute exacerbation of chronic obstructive airways disease Current Visit: Yes Status: Resolved Subjective Principal diagnosis: Respiratory failure Interval history: Patient stated he is feeling better Objective PUL Vital signs: Last Vital Signs Temp 96.6 F L 09/29/16 12:05 Pulse 86 09/29/16 12:18 Resp 20 09/29/16 12:05 BP 140/77 09/29/16 12:05 Pulse Ox 93 L 09/29/16 12:05 General appearance: no acute distress Eyes: nonicteric Mallampati (class): 3 Neck: supple Effort: mildly labored Auscultation: bilateral: diminished breath sounds Cardiovascular: regular rate and rhythm Gastrointestinal: normoactive bowel sounds Extremities: no cyanosis, edema normal mental status, non-focal exam mood appropriate Results - Laboratory Findings CBC and BMP: 09/28/16 05:07 09/27/16 05:58 ABG ABG pH 7.29 pH Units (7.32-7.45) L 09/29/16 09:05 ABG pCO2 69 mmHg (35-45) H 09/29/16 09:05 ABG pO2 127 mmHg (85-104) H 09/29/16 09:05 ABG O2 Saturation 99 % (95-98) H 09/29/16 09:05 PT/INR, D-dimer PT 12.1 Seconds (9.4-12.1) 09/21/16 12:11 Abnormal lab findings: Abnormal lab results RBC 4.07 M/mcL (4.19-5.50) L 09/28/16 05:07 Hgb 11.0 g/dL (12.9-16.9) L 09/28/16 05:07 Hct 36.6 % (37.5-50.1) L 09/28/16 05:07 MCH 27.0 pg (28.0-33.3) L 09/28/16 05:07 MCHC 30.1 g/dL (31.6-35.5) L 09/28/16 05:07 Hypochromasia Present (Not Present) A 09/27/16 05:58 ABG pH 7.29 pH Units (7.32-7.45) L 09/29/16 09:05 ABG pCO2 69 mmHg (35-45) H 09/29/16 09:05 ABG pO2 127 mmHg (85-104) H 09/29/16 09:05 ABG HCO3 33.2 mEQ/L (21-27) H 09/29/16 09:05 ABG Total CO2 35.3 mEq/L (20-26) H 09/29/16 09:05 ABG O2 Saturation 99 % (95-98) H 09/29/16 09:05 ABG Base Excess 4.5 mEq/L (-2.0 to 3.0) H 09/29/16 09:05 VBG pH 7.28 pH Units (7.32-7.42) L 09/26/16 03:35 VBG pCO2 106 mmHg (41-51) H 09/26/16 03:35 VBG pO2 110 mmHg (25-40) H 09/26/16 03:35 VBG HCO3 49.8 mEq/L (21-27) H 09/26/16 03:35 Carbon Dioxide 44 mEq/L (19-29) H* 09/27/16 05:58 BUN 33 mg/dL (8-26) H 09/27/16 05:58 BUN/Creatinine Ratio 44 (6-26) H 09/27/16 05:58 POC Glucose 156 (58-89) H 09/23/16 20:06 Calculated Osmolality 306 (280-300) H 09/27/16 05:58 B-Natriuretic Peptide 187 pg/mL (0-100) H 09/21/16 12:11 Albumin 3.4 g/dL (3.5-5.0) L 09/26/16 03:35 RSV (PCR) DETECTED (Not Detect) A 09/28/16 05:20 - Clinical Findings Intake & Output: Intake & Output 09/29/16 09/29/16 09/29/16 07:59 15:59 23:59 Intake Total 0 / 0 Output Total 500 / 500 450 / 450 Balance -500 / -500 -450 / -450 - VTE Documentation of Mechanical Device: Graduated compression elastic hosiery Consult Discharge Plan - Plan Instructions: Chronic Obstructive Pulmonary Disease (DC) Referrals: Lizeth Cortez MD [Partnered Physician] - 10/24/16 11:00 am Morris Hudson DO [Primary Care Provider] - 10/07/16 1:30 pm () Prescriptions: PredniSONE 5 mg PO DAILY #15 tablet
== END 2016-09-29 16:38 | disposition home health service (06) | DRG 190 ==
LOC: EMEROO 11:57 → ICNU 14:00 → SUATTDRO 14:00 → ICNU 15:36 → 2NNU 09-22 09:40 → 2ANU 09-25 12:31 → 2NNU 09-26 18:31
PROVIDERS: ADMIT Internal Medicine Sleep Medicine; ATTEND Internal Medicine

== ENCOUNTER 2017-03-31 14:55 | Inpatient (IN) ==
[2017-03-31] MEDS ORDERED: Ipratropium/Albuterol Neb 3 ML IH ONE ×2 (15:11→16:29)
[2017-03-31] MEDS ORDERED: predniSONE 20 MG TABLET PO ONE (15:11)
--- NOTE | 2017-03-31 15:15 | Emergency Department Note ---
Disposition Clinical Impression: Acute exacerbation of chronic obstructive airways disease Disposition: Admitted As Inpatient Condition: Fair Referrals: Morris Hudson DO [Primary Care Provider] - Time of Disposition: 16:36 SOB HPI - General Chief Complaint: ED Shortness of Breath/Dyspnea Stated Complaint: MEG Time Seen by Provider: 03/31/17 15:03 Source: patient, family Mode of arrival: ambulatory Limitations: no limitations Nursing Notes Reviewed: Yes Vital Signs Reviewed: Yes - History of Present Illness 67-year-old male history of COPD on 3 L home oxygen supplementation presents with difficulty in breathing. Ongoing for the past 5 days. It is worse with exertion but he is also experiencing at rest. He spoke to his family physician Dr. Hudson, and was prescribed prednisone and doxycycline. He has been taking it over the past 5 days and not getting better. He continues to be short of breath. Today he woke up more short of breath been days prior. He believed those due to yesterday when he was working out in the yard with a gas weed ben may be the fumes affected his breathing. He has been requiring to use his inhalers more frequently as well as his DuoNeb treatments. He used one prior to arrival. He has chest tightness when he coughs. He reports increased cough sputum with the change in sputum color. Denies any history of blood clots. Denies any fever, rhinorrhea, nausea, vomiting, abdominal pain. No recent long-distance travel. 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 Last time he was evaluated was during 2015 required hospitalization. Pt Subjective Complaint: shortness of breath - Related Data Home Medications Medication Instructions Recorded Confirmed Albuterol Neb [Proventil Neb] 2.5 mg IH TID PRN 05/09/15 09/21/16 Albuterol Sulfate [Albuterol 2 puff IH Q4HR PRN 05/09/15 09/21/16 Inhaler] Arformoterol Tartrate [Brovana] 15 mcg IH BID 05/09/15 09/21/16 Aspirin 325 mg PO DAILY 05/09/15 09/21/16 Atorvastatin Calcium [Lipitor] 40 mg PO QAM 05/09/15 09/21/16 Budesonide Neb [Pulmicort Neb] 0.25 mg IH BID 05/09/15 09/21/16 ClonazePAM [Klonopin] 2 mg PO HS 05/09/15 09/21/16 Diltiazem CD (24hr) [Cardizem CD] 120 mg PO QAM 05/09/15 09/21/16 Docusate Sodium [Dulcolax Stool 100 mg PO BID 05/09/15 09/21/16 Softener] Gabapentin [Neurontin] 1,600 mg PO HS 05/09/15 09/21/16 Gabapentin [Neurontin] 1,600 mg PO QAM 05/09/15 09/21/16 Oxygen 3 l NS AD 05/09/15 09/21/16 Pantoprazole Sodium [Protonix] 40 mg PO QAM 05/09/15 09/21/16 Polyethylene Glycol 3350 [MiraLAX] 17 gm PO DAILY PRN 05/09/15 09/21/16 Tiotropium [Spiriva] 1 puff IH QA 05/09/15 09/21/16 Travoprost [Travatan Z] 1 drop OP HS 05/09/15 09/21/16 Ciclopirox Olamine [Ciclopirox] 1 appl TP DAILY PRN 09/21/16 09/21/16 Furosemide [Lasix] 20 mg PO DAILY PRN 09/21/16 09/21/16 OLANZapine [Zyprexa] 5 mg PO 09/21/16 Potassium Chloride [K-Tab ER] 10 meq PO DAILY PRN 09/21/16 09/21/16 Venlafaxine HCl [Venlafaxine HCl 150 mg PO QAM 09/21/16 09/21/16 ER] Previous Rx's Medication Instructions Recorded predniSONE [PredniSONE] 5 mg PO DAILY #15 tablet 09/29/16 Allergies Allergy/AdvReac Type Severity Reaction Status Date / Time hydrocodone [From Vicodin] Allergy Mild Rash Verified 09/21/16 12:02 Penicillins [PCN] Allergy Mild Rash Verified 09/21/16 12:02 acetaminophen [From Vicodin] Allergy Rash Verified 09/21/16 12:02 All systems ED: reviewed and negative except as stated. Constitutional: Denies: fever, chills Cardiovascular: Reports: chest pain, dyspnea on exertion Respiratory: Reports: cough, dyspnea, wheezes Gastrointestinal: Denies: abdominal pain, nausea, vomiting Genitourinary: Denies: urgency, dysuria Musculoskeletal: Denies: back pain, neck pain Integumentary: Denies: rash, abrasion Neurological: Denies: headache Past Medical History - Past Medical History Attestation: Yes The following information was validated with the patient. Source: patient Medical history: Reports: COPD, other Surgical history: Reports: herniorrhaphy, orthopedic, other, sinus surgery, other Psychiatric history: Reports: anxiety, PTSD - Social History Smoking Status: Former smoker Smokeless Tobacco Status: No Alcohol use: Reports: none Drug use: Reports: none Physical Exam - General Limitations: no limitations General appearance: alert, in no apparent distress - Head Head exam: atraumatic, normocephalic, normal inspection - Eye Eye exam: Present: normal appearance, PERRL, EOMI - ENT ENT exam: normal exam, normal oropharynx, mucous membranes moist - Neck Neck exam: Present: normal inspection, full ROM, trachea midline - Chest Chest inspection: Present: normal inspection, symmetric chest wall rise, other ( Surgical scar). Absent: tenderness - Respiratory Respiratory exam: Present: respiratory distress, wheezes (Audible), prolonged expiratory phase - Expanded Respiratory Exam Location: wheezes: Left, Right - Cardiovascular Cardiovascular exam: Present: regular rate, normal rhythm, normal heart sounds - Abdominal Exam Abdominal exam: Present: soft, Non-Tender, normal bowel sounds. Absent: tenderness, distention, guarding, rebound, rigidity - Extremities Exam Extremities exam: Present: normal inspection, full ROM, normal capillary refill. Absent: tenderness, pedal edema, calf tenderness - Back Exam Back exam: Present: normal inspection, full ROM. Absent: tenderness - Neurological Exam Neurological exam: Present: alert, oriented X3 - Psychiatric Psychiatric exam: Present: normal affect, normal mood - Skin Skin exam: Present: warm, dry, intact, normal color Course Course Narrative: 67-year-old male presents with difficulty breathing and wheezing. He is afebrile. He has increase worker breathing in his having audible wheezing. Will give him continuous duoneb and steroids. Will reevaluate. Disposition pending treatment response. - Reevaluation(s) Reevaluation #1: Labs and images reviewed. Chest x-ray does not show signs suggesting pneumonia. He does not have a leukocytosis. His labs or otherwise unremarkable. After 3 breathing treatments he continues to have expiratory wheezing. With shared decision making, and patient would feel more comfortable being admitted to the hospital. I agree with this plan. Impression is COPD exacerbation. Another course of breathing treatment ordered. Time: 16:34 - Consultations Consultation #1: Spoke with on-call hospitalist dheeraj Heath to admit for COPD exacerbation. No further orders at this time Time: 16:39 Vital Signs Temperature 98.4 F 03/31/17 15:02 Pulse Rate 97 03/31/17 15:02 Respiratory Rate 24 03/31/17 15:02 Blood Pressure 157/83 03/31/17 15:02 O2 Sat by Pulse Oximetry 94 03/31/17 15:02 Temperature 98.4 F 03/31/17 15:02 Pulse Rate 98 03/31/17 15:27 Respiratory Rate 26 03/31/17 15:27 Blood Pressure 153/94 03/31/17 15:27 O2 Sat by Pulse Oximetry 95 03/31/17 16:00 Oxygen Delivery Oxygen Delivery Nasal Cannula Shortness of Breath/Dyspnea - Medical Records Medical records reviewed: Yes I reviewed the patient's medical records. - Lab Data Lab results reviewed: Yes I reviewed the patient's lab results. Result diagrams: 03/31/17 15:47 03/31/17 15:47 Lab Results 03/31/17 03/31/17 03/31/17 Range/Units 15:47 15:47 15:47 WBC 6.6 (4.3-11.1) K/mcL RBC 4.35 (4.19-5.50) M/mcL Hgb 11.8 L (12.9-16.9) g/dL Hct 38.6 (37.5-50.1) % MCV 88.7 (83.0-100.0) fL MCH 27.1 L (28.0-33.3) pg MCHC 30.6 L (31.6-35.5) g/dL RDW 12.9 (11.5-14.5) % Plt Count 200 (140-400) K/mcL MPV 8.6 L (9.4-12.4) fL Immature Gran % 0.6 (0-4) % Seg Neutrophils % 84.4 % Lymphocytes % 10.6 % Monocytes % 3.8 % Eosinophils % 0.0 % Basophils % 0.6 % Neutrophils # 5.6 (1.6-8.9) K/mcL Lymphocytes # 0.7 (0.6-4.6) K/mcL Monocytes # 0.3 (0.0-1.3) K/mcL Eosinophils # 0.0 (0.0-0.6) K/mcL Basophils # 0.0 (0.0-0.2) K/mcL Sodium 142 (136-145) mEq/L Potassium 4.4 (3.5-4.5) mEq/L Chloride 99 (98-109) mEq/L Carbon Dioxide 35 H (19-29) mEq/L BUN 25 (8-26) mg/dL Creatinine 0.92 (0.72-1.25) mg/dL Est GFR ( Amer) > 60 (> 60) Est GFR (Non-Af Amer) > 60 (> 60) BUN/Creatinine Ratio 27 H (6-26) Glucose 158 H (70-99) mg/dL Calculated Osmolality 302 H (280-300) Calcium 9.5 (8.6-10.8) mg/dL Troponin I 0.01 (0-0.03) ng/mL - Radiology Data Radiology results reviewed: Yes I reviewed the patient's radiology results. Chest X-Ray 03/31/17 15:11 IMPRESSION: No acute abnormality. D/ / Garcia Russell MD / Garcia Russell MD Interpreting Provider: Garcia Russell MD - EKG Data EKG attestation: Yes I reviewed and interpreted this EKG. EKG results narrative: EKG performed 1507 sinus rhythm 94 bpm left bundle branch block appears old QRS 157 no Scarbossa criteria. Compared to old EKG performed 09/21/2016 appears consistent. No acute ischemic changes. Attestation Statement - Attestation Attestation: I examined this patient and my medical decision-making was reviewed with the PICTURE PAINTER/PA/Advanced Practice Nurse/Resident Physician. I agree with the documented findings, disposition and treatment plan as described except to the extent set forth below. CXR neg vss still wheezing possible admission for copd exacerbation
[2017-03-31 15:54] LABS: Basophils % 0.6 %; Hematocrit 38.6 % (37.5-50.1); Hemoglobin 11.8 g/dL (12.9-16.9); Immature Granulocytes % 0.6 % (0-4); Lymphocytes # 0.7 K/mcL (0.6-4.6); Lymphocytes % 10.6 %; Mean Corpuscular HGB Conc 30.6 g/dL (31.6-35.5); Mean Corpuscular Hemoglobin 27.1 pg (28.0-33.3); Mean Corpuscular Volume 88.7 fL (83.0-100.0); Mean Platelet Volume 8.6 fL (9.4-12.4); Monocytes # 0.3 K/mcL (0.0-1.3); Monocytes % 3.8 %; Neutrophils # 5.6 K/mcL (1.6-8.9); Platelet Count 200 K/mcL (140-400); Red Blood Count 4.35 M/mcL (4.19-5.50); Red Cell Distribution Width 12.9 % (11.5-14.5); Segmented Neutrophils % 84.4 %
[2017-03-31 16:05] LABS: BUN/Creatinine Ratio 27 (6-26); Blood Urea Nitrogen 25 mg/dL (8-26); Calcium 9.5 mg/dL (8.6-10.8); Carbon Dioxide 35 mEq/L (19-29); Chloride 99 mEq/L (98-109); Glucose 158 mg/dL (70-99); Osmolality,Calculated 302 (280-300); Potassium 4.4 mEq/L (3.5-4.5); Sodium 142 mEq/L (136-145); eGFR For African Americans > 60 (> 60); eGFR For Non-African Americans > 60 (> 60)
[2017-03-31] MEDS ORDERED: Ondansetron 4 MG/2 ML VIAL IVP PRN (17:29)
[2017-03-31] MEDS ORDERED: *HR* Morphine 2 MG/ML SYRINGE IVP PRN (17:29)
[2017-03-31] MEDS ORDERED: Acetaminophen 325 MG TABLET PO PRN (17:29)
[2017-03-31] MEDS ORDERED: Naloxone 0.4 MG/ML INJ IVP PRN (17:29)
[2017-03-31] MEDS ORDERED: Nitroglycerin 0.4 MG TAB.SUBL SL PRN (17:32)
--- NOTE | 2017-03-31 17:35 | Internal Med History&Physical ---
Date of Encounter: 03/31/17 Time of Encounter: 16:40 Assessment and Plan (1) Acute exacerbation of chronic obstructive airways disease Current visit: Yes Status: Acute Acute exacerbation of chronic advanced COPD - causing acute on chronic respiratory failure Continue breathing treatments, IV Solu-Medrol, Symbicort Empiric IV Rocephin Sputum cultures - pending EKG - sinus rhythm with left bundle branch block with no acute ST-T changes, no change when compared to previous EKG Chest x-ray - no acute process Continue home meds (2) Pulmonary hypertension Current visit: No Status: Chronic Chronic, secondary to advanced COPD, probable cor pulmonale (3) Depression Current visit: No Status: Chronic Continue home meds. Qualifiers: Depression Type: unspecified Qualified Code(s): F32.9 - Major depressive disorder, single episode, unspecified (4) PTSD (post-traumatic stress disorder) Current visit: No Status: Chronic Continue home meds (5) DVT prophylaxis Current visit: Yes Status: Acute Continue heparin subcutaneous Internal Medicine - H&P: HPI Chief complaint: Shortness of breath Admitted From: Emergency Dept History of present illness: Mr. Bess is a 67 year old male with past medical history of advanced COPD, anxiety, PTSD and pulmonary hypertension. Patient was initially remarkable for some breath. Patient states symptoms started about 1 week ago and gradually worsened. Patient complains of productive cough with white colored sputum. He also complains of wheezing. Symptoms are worse with exertion. No alleviating factors. Patient initially discussed with his PCP a few days ago and was prescribed doxycycline and prednisone. This has not helped his symptoms. Patient was apparently working outside in his yard and his breathing slowly got worse. His breathing treatments have not helped either. He seems to chest tightness when he coughs likely due to wheezing. Denies chest pain and denies palpitations denies headache or dizziness or abdominal pain or nausea or vomiting. He has been admitted in the past for similar complaints and was treated for COPD exacerbation. on examination patient is awake and alert. Not in any distress. he is in mild discomfort due to wheezing and cough. He is able to provide all history. initial ED evaluation including chest x-ray and labs are fairly within normal limits. patient has required [id number] breathing treatment. He is being admitted for COPD exacerbation. Will continue breathing treatment, Solu-Medrol IV and Symbicort. Patient and have been explained about his condition and plan of care. Understood and agreed. No unanswered questions. No other acute complaints. CODE STATUS full code. Past Med Surg Social Fam HX - Past Medical History Medical history: COPD, other Psychiatric history: anxiety, PTSD - Past Surgical History Surgical History: herniorrhaphy, orthopedic, other, sinus surgery, other - Social History Smoking Status: Former smoker Smokeless Tobacco Status: No Alcohol use: none Drug use: none Internal Medicine - H&P: Meds Albuterol Neb [Proventil Neb] 2.5 mg IH TID PRN 05/09/15 [History] Albuterol Sulfate [Albuterol Inhaler] 2 puff IH Q4HR PRN 05/09/15 [History] Arformoterol Tartrate [Brovana] 15 mcg IH BID 05/09/15 [History] Aspirin 325 mg PO DAILY 05/09/15 [History] Atorvastatin Calcium [Lipitor] 40 mg PO HS 05/09/15 [History] Budesonide Neb [Pulmicort Neb] 0.25 mg IH BID 05/09/15 [History] ClonazePAM [Klonopin] 2 mg PO HS 05/09/15 [History] Docusate Sodium [Dulcolax Stool Softener] 100 mg PO HS 05/09/15 [History] Gabapentin [Neurontin] 1,600 mg PO HS 05/09/15 [History] Gabapentin [Neurontin] 1,600 mg PO QAM 05/09/15 [History] Oxygen 3 l NS AD 05/09/15 [History] Pantoprazole Sodium [Protonix] 40 mg PO QAM 05/09/15 [History] Polyethylene Glycol 3350 [MiraLAX] 17 gm PO DAILY PRN 05/09/15 [History] Tiotropium [Spiriva] 18 mcg IH QAM 05/09/15 [History] Travoprost [Travatan Z] 1 drop OP HS 05/09/15 [History] Furosemide [Lasix] 20 mg PO DAILY 09/21/16 [History] OLANZapine [Zyprexa] 5 mg PO HS 09/21/16 [History] Potassium Chloride [K-Tab ER] 10 meq PO DAILY 09/21/16 [History] Venlafaxine HCl [Venlafaxine HCl ER] 150 mg PO QAM 09/21/16 [History] Diltiazem HCl [Diltiazem 24Hr Cd] 180 mg PO DAILY 03/31/17 [History] Doxycycline Hyclate [Doxycycline Hyclate] 100 mg PO BID 03/31/17 [History] Gabapentin [Neurontin] 800 mg PO DAILY 03/31/17 [History] Nitroglycerin [Nitrostat] 0.4 mg SL Q5M PRN 03/31/17 [History] Oxycodone HCl/Acetaminophen [Percocet 5-325 mg Tablet] 1 - 2 each PO Q6H PRN 01/12 [History] Roflumilast [Daliresp] 500 mcg PO DAILY 03/31/17 [History] predniSONE [PredniSONE] See Taper PO DAILY 03/31/17 [History] Allergies hydrocodone [From Vicodin] Allergy (Mild, Verified 09/21/16 12:02) Rash Skin peeling Penicillins [PCN] Allergy (Mild, Verified 09/21/16 12:02) Rash acetaminophen [From Vicodin] Allergy (Verified 09/21/16 12:02) Rash All Systems PM: A 10-system review of systems was performed and is negative for pertinent findings except as documented above in the HPI. - Constitutional Constitutional: fatigue, weakness - EENT Eyes: no blurry vision - Cardiovascular Cardiovascular ROS IM: dyspnea, dyspnea on exertion, orthopnea, no chest pain, no syncope - Respiratory Respiratory: cough, dyspnea, dyspnea on exertion, wheezing, chest congestion, no hemoptysis - Gastrointestinal Gastrointestinal: no abdominal pain, no cramping, no diarrhea, no nausea, no vomiting - Genitourinary Genitourinary ROS male: no dysuria - Musculoskeletal Musculoskeletal ROS IM: no arthralgias - Neurological Neurological ROS: no abnormal gait, no abnormal speech, no focal weakness, no numbness, no tingling, no weakness - Constitutional Vitals: Temp Pulse Resp BP Pulse Ox 98.4 F 108 24 157/66 97 03/31/17 15:02 03/31/17 16:59 03/31/17 17:07 03/31/17 17:07 03/31/17 16:59 General appearance: Present: A&O X 3, no acute distress, answers questions appropriately Exam: Ill-appearing, generalized weakness, mild discomfort due to wheezing and cough - Head Head exam: Present: atraumatic - Eye Eye exam: Present: EOMI - Neck Neck exam general surgery: Present: supple - Respiratory Respiratory exam: Present: accessory muscle use, wheezes (Extensive bilateral). Absent: rales, rhonchi, tachypnea - Cardiovascular Cardiovascular exam: Present: +S1, +S2, systolic murmur, tachycardia - GI/Abdominal GI/Abdominal exam: Present: soft, no peritoneal signs. Absent: distended, firm , guarding, rebound, rigid, tenderness - Extremities Exam Extremities exam: Present: radial pulses palpable and symetrical. Absent: cyanotic, pedal edema, tenderness - Neurological Exam Neurological exam: Present: alert, oriented X3, no focal deficits Internal Med - H&P Results - Labs CBC & Chem 7: 03/31/17 15:47 03/31/17 15:47
[2017-03-31] MEDS ORDERED: NON-FORMULARY MEDICATION 1 EACH EACH (Oxygen [Oxygen] 3 L) NS SCH (17:45)
[2017-03-31 18:26] LABS: Prothrombin Time 11.2 Seconds (9.4-12.1)
[2017-03-31] MEDS: *HR* Heparin 5,000 UNIT/ML VIAL SQ SCH (18:47)
[2017-03-31] MEDS: MethylPREDNISolone 40 MG/ML VIAL IVP SCH ×2 (18:50→23:53)
[2017-03-31] MEDS: Ipratropium/Albuterol Neb 3 ML IH SCH (20:40)
[2017-03-31] MEDS: Budesonide/Formoterol 160/4.5 MDI IH SCH (20:40)
[2017-03-31 21:20] LABS: Bilirubin,Urine Negative (Negative); Blood,Urine Negative (Negative); Clarity,Urine Clear (Clear); Color,Urine Yellow (Yellow); Glucose,Urine (UA) Normal (Normal); Ketones,Urine Negative (Negative); Leukocyte Esterase,Urine Negative (Negative); Nitrite,Urine Negative (Negative); Protein,Urine Negative (Neg-Trace); Specific Gravity,Urine 1.015 (1.010-1.025); Urobilinogen,Urine Normal (Normal)
[2017-03-31] MEDS: clonazePAM 1 MG TABLET PO SCH (21:29)
[2017-03-31] MEDS: Famotidine 20 MG TABLET PO SCH (21:29)
[2017-03-31] MEDS: OLANZapine 5 MG TAB.RAPDIS PO SCH (21:29)
[2017-03-31] MEDS: Travoprost [Travatan Z] 1 DROP OP SCH (21:30)
[2017-03-31] MEDS ORDERED: Budesonide Neb 0.25 MG/2 ML IH SCH (22:00)
[2017-04-01 03:59] LABS: Basophils % 0.2 %; Hematocrit 35.3 % (37.5-50.1); Hemoglobin 10.5 g/dL (12.9-16.9); Immature Granulocytes % 1.4 % (0-4); Lymphocytes # 0.3 K/mcL (0.6-4.6); Lymphocytes % 5.7 %; Mean Corpuscular HGB Conc 29.7 g/dL (31.6-35.5); Mean Corpuscular Hemoglobin 26.4 pg (28.0-33.3); Mean Corpuscular Volume 88.7 fL (83.0-100.0); Mean Platelet Volume 9.2 fL (9.4-12.4); Monocytes % 0.7 %; Platelet Count 208 K/mcL (140-400); Red Blood Count 3.98 M/mcL (4.19-5.50); Red Cell Distribution Width 12.9 % (11.5-14.5)
[2017-04-01 04:12] LABS: BUN/Creatinine Ratio 30 (6-26); Blood Urea Nitrogen 24 mg/dL (8-26); Calcium 9.5 mg/dL (8.6-10.8); Carbon Dioxide 34 mEq/L (19-29); Chloride 98 mEq/L (98-109); Glucose 144 mg/dL (70-99); Osmolality,Calculated 299 (280-300); Potassium 4.3 mEq/L (3.5-4.5); Sodium 141 mEq/L (136-145); eGFR For African Americans > 60 (> 60); eGFR For Non-African Americans > 60 (> 60)
[2017-04-01] MEDS: Ipratropium/Albuterol Neb 3 ML IH SCH ×6 (04:30→19:54)
[2017-04-01] MEDS: *HR* Heparin 5,000 UNIT/ML VIAL SQ SCH ×2 (06:29→17:56)
[2017-04-01] MEDS: Famotidine 20 MG TABLET PO SCH ×2 (06:29→17:56)
[2017-04-01] MEDS: MethylPREDNISolone 40 MG/ML VIAL IVP SCH ×4 (06:29→23:29)
[2017-04-01] MEDS: Budesonide/Formoterol 160/4.5 MDI IH SCH ×2 (07:44→19:54)
[2017-04-01] MEDS: Furosemide 20 MG TABLET PO SCH (08:26)
[2017-04-01] MEDS: Diltiazem CD (24hr) 180 MG CAPSULE PO SCH (08:27)
[2017-04-01] MEDS: Venlafaxine XR (24 HR) 150 MG CAP.ER.24H PO SCH (08:27)
[2017-04-01] MEDS: Aspirin Enteric Coated 325 MG Tablet PO SCH (08:27)
--- NOTE | 2017-04-01 09:31 | Internal Med Progress Note ---
Date of Encounter: 04/01/17 Time of Encounter: 07:45 - Assessment and plan (1) Acute exacerbation of chronic obstructive airways disease Current Visit: Yes Status: Acute Assessment and plan: Patient with acute exacerbation of COPD. Continue bronchodilators, IV steroids and O2 supplementation. High risk for complications including respiratory failure. (2) Depression Current Visit: No Status: Chronic Assessment and plan: On Effexor Qualifiers: Depression Type: unspecified Qualified Code(s): F32.9 - Major depressive disorder, single episode, unspecified (3) PTSD (post-traumatic stress disorder) Current Visit: No Status: Chronic Assessment and plan: On Effexor and Zyprexa. (4) Pulmonary hypertension Current Visit: Yes Status: Chronic Assessment and plan: Continue O2 supplementation, daliresp. (5) DVT prophylaxis Current Visit: Yes Status: Acute Assessment and plan: On subcutaneous heparin - Subjective Interval history: Patient continues to have significant shortness of breath. He denies any chest pain. He does have some cough and associated pleuritic pain intermittently. No fever or chills overnight. - Constitutional Vitals: Temp Pulse Resp BP Pulse Ox 97.9 F 91 14 119/64 97 04/01/17 07:01 04/01/17 07:01 04/01/17 07:46 04/01/17 07:01 04/01/17 07:46 General appearance: Present: cooperative, A&O X 3, answers questions appropriately Exam: Moderate distress - Eye Eye exam: Present: EOMI, PERRL, conjuntiva pink, sclera anicteric - Neck Neck exam general surgery: Present: supple, trachea midline. Absent: lymphadenopathy - Respiratory Respiratory exam: Present: prolonged expiratory phase, wheezes (Bilateral). Absent: accessory muscle use, rales, rhonchi - Cardiovascular Cardiovascular exam: Present: RRR, +S1, +S2. Absent: diastolic murmur, gallop, rubs, systolic murmur - GI/Abdominal GI/Abdominal exam: Present: normal bowel sounds, soft, no peritoneal signs. Absent: distended, tenderness - Extremities Exam Extremities exam: Present: warm, radial pulses palpable and symetrical. Absent : calf tenderness, cyanotic, pedal edema - Neurological Exam Neurological exam: Present: CN II-XII intact, oriented X3, no focal deficits. Absent: facial droop, speech deficit - Skin Skin exam: Present: dry, intact Internal Medicine: Result - Labs CBC & Chem 7: 04/01/17 03:38 04/01/17 03:38 Labs: Short CBC 04/01/17 Range/Units 03:38 WBC 4.4 (4.3-11.1) K/mcL Hgb 10.5 L (12.9-16.9) g/dL Hct 35.3 L (37.5-50.1) % Plt Count 208 (140-400) K/mcL Neutrophils # 4.0 (1.6-8.9) K/mcL BMP 04/01/17 03:38 Sodium 141 Potassium 4.3 Chloride 98 Carbon Dioxide 34 H BUN 24 Creatinine 0.81 Glucose 144 H Calcium 9.5 Cardiac Enzymes 03/31/17 04/01/17 Range/Units 22:28 03:38 Troponin I 0.02 0.01 (0-0.03) ng/mL Urine 03/31/17 Range/Units 21:06 Urine Color Yellow (Yellow) Urine Clarity Clear (Clear) Urine pH 6.0 (5.0-8.0) pH Units Ur Specific [place] 1.015 (1.010-1.025) Urine Protein Negative (Neg-Trace) mg/dL Urine Glucose (UA) Normal (Normal) mg/dL - ABG Interpretation ABG results: PT/INR, D-dimer PT 11.2 Seconds (9.4-12.1) 03/31/17 15:47 Consult Discharge Plan - Plan Referrals: Morris Hudson DO [Primary Care Provider] -
[2017-04-01] MEDS ORDERED: Tiotropium 18 MCG inhalation IH SCH (10:00)
--- NOTE | 2017-04-01 13:35 | Electrocardiograph Report ---
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
[2017-04-01] MEDS: Roflumilast [Daliresp] 500 MCG PO SCH (17:57)
[2017-04-01] MEDS: OLANZapine 5 MG TAB.RAPDIS PO SCH (23:29)
[2017-04-01] MEDS: clonazePAM 1 MG TABLET PO SCH (23:29)
[2017-04-01] MEDS: Travoprost [Travatan Z] 1 DROP OP SCH (23:29)
[2017-04-02] MEDS: Ipratropium/Albuterol Neb 3 ML IH SCH ×7 (00:37→23:03)
[2017-04-02] MEDS: MethylPREDNISolone 40 MG/ML VIAL IVP SCH ×2 (06:29→11:43)
[2017-04-02] MEDS: *HR* Heparin 5,000 UNIT/ML VIAL SQ SCH ×2 (06:29→16:28)
[2017-04-02 06:41] LABS: Basophils % 0.1 %; Hematocrit 34.2 % (37.5-50.1); Hemoglobin 10.4 g/dL (12.9-16.9); Immature Granulocytes % 0.9 % (0-4); Lymphocytes # 0.5 K/mcL (0.6-4.6); Lymphocytes % 3.5 %; Mean Corpuscular HGB Conc 30.4 g/dL (31.6-35.5); Mean Corpuscular Hemoglobin 27.2 pg (28.0-33.3); Mean Corpuscular Volume 89.3 fL (83.0-100.0); Mean Platelet Volume 9.1 fL (9.4-12.4); Monocytes # 0.5 K/mcL (0.0-1.3); Monocytes % 4.1 %; Platelet Count 211 K/mcL (140-400); Red Blood Count 3.83 M/mcL (4.19-5.50); Red Cell Distribution Width 13.1 % (11.5-14.5); Segmented Neutrophils % 91.4 %
[2017-04-02 06:49] LABS: Hemoglobin A1C 5.4 %
[2017-04-02] MEDS: Budesonide/Formoterol 160/4.5 MDI IH SCH ×2 (07:31→19:52)
[2017-04-02] MEDS: Aspirin Enteric Coated 325 MG Tablet PO SCH (09:43)
[2017-04-02] MEDS: Venlafaxine XR (24 HR) 150 MG CAP.ER.24H PO SCH (09:43)
[2017-04-02] MEDS: Diltiazem CD (24hr) 180 MG CAPSULE PO SCH (09:43)
[2017-04-02] MEDS: Famotidine 20 MG TABLET PO SCH ×2 (09:43→16:29)
[2017-04-02] MEDS: Furosemide 20 MG TABLET PO SCH (09:44)
[2017-04-02] MEDS: Roflumilast [Daliresp] 500 MCG PO SCH (09:44)
--- NOTE | 2017-04-02 16:38 | Internal Med Progress Note ---
Date of Encounter: 04/02/17 Time of Encounter: 08:20 - Assessment and plan (1) Acute exacerbation of chronic obstructive airways disease Current Visit: Yes Status: Acute Assessment and plan: Improving overall. We will continue bronchodilators. Taper steroids. Continue O2 supplementation. (2) Depression Current Visit: Yes Status: Chronic Assessment and plan: On Effexor Qualifiers: Depression Type: unspecified Qualified Code(s): F32.9 - Major depressive disorder, single episode, unspecified (3) PTSD (post-traumatic stress disorder) Current Visit: No Status: Chronic Assessment and plan: No acute issues. Continue Zyprexa, Effexor. And Klonopin at bedtime. (4) Pulmonary hypertension Current Visit: Yes Status: Chronic (5) DVT prophylaxis Current Visit: Yes Status: Acute (6) Chronic respiratory failure Current Visit: Yes Status: Chronic Assessment and plan: Continue O2 supplementation. Qualifiers: Respiratory failure complication: hypoxia Qualified Code(s): J96.11 - Chronic respiratory failure with hypoxia - Subjective Interval history: Patient feeling slightly better today. Breathing is improving. Denies any chest pain. On 3-4 L O2 supplementation via nasal cannula. Still continuing to have some wheezing. Improved with bronchodilators. - Constitutional Vitals: Temp Pulse Resp BP Pulse Ox 97.9 F 84 18 136/73 96 04/02/17 15:10 04/02/17 15:10 04/02/17 16:01 04/02/17 15:10 04/02/17 16:01 General appearance: Present: cooperative, A&O X 3, answers questions appropriately - Respiratory Respiratory exam: Present: prolonged expiratory phase, rhonchi, wheezes. Absent : accessory muscle use, rales - Cardiovascular Cardiovascular exam: Present: RRR, +S1, +S2. Absent: diastolic murmur, gallop, rubs, systolic murmur - GI/Abdominal GI/Abdominal exam: Present: normal bowel sounds, soft, no peritoneal signs. Absent: distended, tenderness - Extremities Exam Extremities exam: Present: warm, radial pulses palpable and symetrical. Absent : calf tenderness, cyanotic, pedal edema - Neurological Exam Neurological exam: Present: alert, CN II-XII intact, oriented X3, no focal deficits. Absent: facial droop, speech deficit - Skin Skin exam: Present: dry, intact Internal Medicine: Result - Labs CBC & Chem 7: 04/02/17 06:01 04/01/17 03:38 Labs: Short CBC 04/02/17 Range/Units 06:01 WBC 13.1 H D (4.3-11.1) K/mcL Hgb 10.4 L (12.9-16.9) g/dL Hct 34.2 L (37.5-50.1) % Plt Count 211 (140-400) K/mcL Neutrophils # 12.0 H (1.6-8.9) K/mcL Cardiac Enzymes 04/02/17 04/02/17 Range/Units 09:12 15:05 Troponin I 0.01 0.01 (0-0.03) ng/mL - ABG Interpretation ABG results: PT/INR, D-dimer PT 11.2 Seconds (9.4-12.1) 03/31/17 15:47 Consult Discharge Plan - Plan Referrals: Lizeth Cortez MD [Partnered Physician] - 04/22/17 11:00 am Morris Hudson DO [Primary Care Provider] -
[2017-04-02] MEDS: clonazePAM 1 MG TABLET PO SCH (22:05)
[2017-04-02] MEDS: OLANZapine 5 MG TAB.RAPDIS PO SCH (22:05)
[2017-04-03] MEDS: Ipratropium/Albuterol Neb 3 ML IH SCH ×2 (03:26→07:52)
[2017-04-03] MEDS: *HR* Heparin 5,000 UNIT/ML VIAL SQ SCH (06:42)
[2017-04-03] MEDS: Budesonide/Formoterol 160/4.5 MDI IH SCH (07:52)
[2017-04-03 08:03] VITALS: BP 126/64
--- NOTE | 2017-04-03 08:05 | Discharge Summary ---
Date of Encounter: 04/03/17 Time of Encounter: 08:02 - Discharge Diagnosis (1) Acute exacerbation of chronic obstructive airways disease Priority: Primary Status: Acute (2) Depression Priority: Secondary Status: Chronic Qualifiers: Depression Type: unspecified Qualified Code(s): F32.9 - Major depressive disorder, single episode, unspecified (3) PTSD (post-traumatic stress disorder) Priority: Secondary Status: Chronic (4) Pulmonary hypertension Priority: Secondary Status: Chronic (5) DVT prophylaxis Priority: Secondary Status: Acute (6) Chronic respiratory failure Priority: Secondary Status: Chronic Qualifiers: Respiratory failure complication: hypoxia Qualified Code(s): J96.11 - Chronic respiratory failure with hypoxia (7) Congestive heart failure Priority: Secondary Status: Chronic Qualifiers: Congestive heart failure type: systolic Congestive heart failure chronicity : chronic Qualified Code(s): I50.22 - Chronic systolic (congestive) heart failure - Discharge Medications Prescriptions: predniSONE [PredniSONE] 10 mg PO DAILY 12 Days Home Medications: Albuterol Neb [Proventil Neb] 2.5 mg IH TID PRN 05/09/15 [History] Albuterol Sulfate [Albuterol Inhaler] 2 puff IH Q4HR PRN 05/09/15 [History] Arformoterol Tartrate [Brovana] 15 mcg IH BID 05/09/15 [History] Aspirin 325 mg PO DAILY 05/09/15 [History] Atorvastatin Calcium [Lipitor] 40 mg PO HS 05/09/15 [History] Budesonide Neb [Pulmicort Neb] 0.25 mg IH BID 05/09/15 [History] ClonazePAM [Klonopin] 2 mg PO HS 05/09/15 [History] Docusate Sodium [Dulcolax Stool Softener] 100 mg PO HS 05/09/15 [History] Gabapentin [Neurontin] 1,600 mg PO HS 05/09/15 [History] Gabapentin [Neurontin] 1,600 mg PO QAM 05/09/15 [History] Oxygen 3 l NS AD 05/09/15 [History] Pantoprazole Sodium [Protonix] 40 mg PO QAM 05/09/15 [History] Polyethylene Glycol 3350 [MiraLAX] 17 gm PO DAILY PRN 05/09/15 [History] Tiotropium [Spiriva] 18 mcg IH QAM 08/12/15 [History] Travoprost [Travatan Z] 1 drop OP HS 05/09/15 [History] Furosemide [Lasix] 20 mg PO DAILY 09/21/16 [History] OLANZapine [Zyprexa] 5 mg PO HS 09/21/16 [History] Potassium Chloride [K-Tab ER] 10 meq PO DAILY 09/21/16 [History] Venlafaxine HCl [Venlafaxine HCl ER] 150 mg PO QAM 09/21/16 [History] Diltiazem HCl [Diltiazem 24Hr Cd] 180 mg PO DAILY 03/31/17 [History] Doxycycline Hyclate 100 mg PO BID 03/31/17 [History] Gabapentin [Neurontin] 800 mg PO DAILY 03/31/17 [History] Nitroglycerin [Nitrostat] 0.4 mg SL Q5M PRN 03/31/17 [History] Oxycodone HCl/Acetaminophen [Percocet 5-325 mg Tablet] 1 - 2 each PO Q6H PRN 01/12 [History] Roflumilast [Daliresp] 500 mcg PO DAILY 03/31/17 [History] predniSONE [PredniSONE] 10 mg PO DAILY 12 Days 04/03/17 [Rx] Allergies/Adverse Reactions: Allergies hydrocodone [From Vicodin] Allergy (Mild, Verified 09/21/16 12:02) Rash Skin peeling Penicillins [PCN] Allergy (Mild, Verified 09/21/16 12:02) Rash acetaminophen [From Vicodin] Allergy (Verified 09/21/16 12:02) Rash Date of admission: 04/01/17 09:40 Primary care physician: Cale Malagon Discharging clinician: Glenna Corbett Anticipated date of discharge: 04/03/17 - Patient Status Disposition: Home, Self-Care Condition: Good Functional capacity at discharge: independent ambulation Overall status at discharge: patient is progressing back to baseline - Discharge Instructions Instructions: Prednisone (By mouth), Using Oxygen at Home (GEN), Chronic Obstructive Pulmonary Disease (DC) Follow Up With: Lizeth Cortez MD [Partnered Physician] - 04/22/17 11:00 am Morris Hudson DO [Primary Care Provider] - 04/10/17 11:30 am - Diet and Activity Activity: increase activity as tolerated, wear oxygen at all times Diet: low fat, low cholesterol, low salt diet Hospital course: Mr. Bess is a 67 year old male patient with history of COPD, pulmonary hypertension, anxiety and PTSD was admitted here with symptoms of shortness of breath and was diagnosed with acute exacerbation of COPD. He was treated for this with bronchodilators, O2 supplementation and intravenous steroids. He also received IV antibiotics. With this treatment regimen, he has slowly improved. Patient also has a history of chronic systolic congestive heart failure and takes Lasix at home. A 2-D echocardiogram done here showed EF of 45 -50%. Patient initial EKG here showed a left bundle branch block. The patient was monitored with telemetry during his stay here and his telemetry rhythm was abnormal yesterday. An EKG done then showed a different morphology with posterior fascicular block and T-wave inversion in the lateral leads without any clear evidence of left bundle branch block. This EKG was evaluated by cardiology and is likely a benign finding due to the patient's known history of left bundle branch block. Troponins were negative and patient did not have any chest pain. At this time, patient is clinically stable for discharge. He does have home health which will be continued after his discharge. He will follow up with his primary care provider and pulmonology for further management of his COPD. He will complete a short course of tapering steroids. He has chronic respiratory failure and is on home oxygen. - Time Spent with Patient Total time spent providing and/or coordinating discharge services: Less than 30 minutes (25 min) - Constitutional Vitals: Temp Pulse Resp BP Pulse Ox 97.8 F 90 18 122/67 100 04/03/17 03:14 04/03/17 03:14 04/03/17 07:52 04/03/17 03:14 04/03/17 07:52 General appearance: Present: cooperative, A&O X 3, answers questions appropriately - Neck Neck exam general surgery: Present: supple, trachea midline. Absent: lymphadenopathy - Respiratory Respiratory exam: Present: prolonged expiratory phase, wheezes. Absent: accessory muscle use, rales, rhonchi - Cardiovascular Cardiovascular exam: Present: RRR, +S1, +S2. Absent: diastolic murmur, gallop, rubs, systolic murmur - GI/Abdominal GI/Abdominal exam: Present: normal bowel sounds, soft, no peritoneal signs. Absent: distended, tenderness - Extremities Exam Extremities exam: Present: warm, radial pulses palpable and symetrical. Absent : calf tenderness, cyanotic, pedal edema
--- NOTE | 2017-04-03 08:48 | Physician Discharge Referral ---
Home Health/Hosp Referral Info Transfer to: Home Health Provider in Charge Post Discharge: PCP - Diagnosis (1) Acute exacerbation of chronic obstructive airways disease Priority: Primary Status: Acute (2) Depression Priority: Secondary Status: Chronic (3) PTSD (post-traumatic stress disorder) Priority: Secondary Status: Chronic (4) Pulmonary hypertension Priority: Secondary Status: Chronic (5) DVT prophylaxis Priority: Secondary Status: Acute (6) Chronic respiratory failure Priority: Secondary Status: Chronic - Respiratory Orders Oxygen / L per min (3-4) Smoking Cessation: Smoking cessation has been advised. For more information, call the [place] Tobacco Quit Line at 4-205-RVKW-NOW. - Diet/Nutrition Diet/Nutrition Orders: Cardiac - Activity Activity Orders: Ambulate - Services Needed Following services are medically necessary services: Nursing, Physical Therapy, Occupational Therapy - Transfer Medications Prescriptions: predniSONE [PredniSONE] 10 mg PO DAILY 12 Days Home Medications: Albuterol Neb [Proventil Neb] 2.5 mg IH TID PRN 05/09/15 [History] Albuterol Sulfate [Albuterol Inhaler] 2 puff IH Q4HR PRN 05/09/15 [History] Arformoterol Tartrate [Brovana] 15 mcg IH BID 05/09/15 [History] Aspirin 325 mg PO DAILY 05/09/15 [History] Atorvastatin Calcium [Lipitor] 40 mg PO HS 05/09/15 [History] Budesonide Neb [Pulmicort Neb] 0.25 mg IH BID 05/09/15 [History] ClonazePAM [Klonopin] 2 mg PO HS 05/09/15 [History] Docusate Sodium [Dulcolax Stool Softener] 100 mg PO HS 05/09/15 [History] Gabapentin [Neurontin] 1,600 mg PO HS 05/09/15 [History] Gabapentin [Neurontin] 1,600 mg PO QAM 05/09/15 [History] Oxygen 3 l NS AD 05/09/15 [History] Pantoprazole Sodium [Protonix] 40 mg PO QAM 05/09/15 [History] Polyethylene Glycol 3350 [MiraLAX] 17 gm PO DAILY PRN 05/09/15 [History] Tiotropium [Spiriva] 18 mcg IH QAM 05/09/15 [History] Travoprost [Travatan Z] 1 drop OP HS 05/09/15 [History] Furosemide [Lasix] 20 mg PO DAILY 09/21/16 [History] OLANZapine [Zyprexa] 5 mg PO HS 09/21/16 [History] Potassium Chloride [K-Tab ER] 10 meq PO DAILY 09/21/16 [History] Venlafaxine HCl [Venlafaxine HCl ER] 150 mg PO QAM 09/21/16 [History] Diltiazem HCl [Diltiazem 24Hr Cd] 180 mg PO DAILY 03/31/17 [History] Doxycycline Hyclate 100 mg PO BID 03/31/17 [History] Gabapentin [Neurontin] 800 mg PO DAILY 03/31/17 [History] Nitroglycerin [Nitrostat] 0.4 mg SL Q5M PRN 03/31/17 [History] Oxycodone HCl/Acetaminophen [Percocet 5-325 mg Tablet] 1 - 2 each PO Q6H PRN 01/12 [History] Roflumilast [Daliresp] 500 mcg PO DAILY 03/31/17 [History] predniSONE [PredniSONE] 10 mg PO DAILY 12 Days 04/03/17 [Rx] Allergies/Adverse Reactions: Allergies hydrocodone [From Vicodin] Allergy (Mild, Verified 09/21/16 12:02) Rash Skin peeling Penicillins [PCN] Allergy (Mild, Verified 09/21/16 12:02) Rash acetaminophen [From Vicodin] Allergy (Verified 09/21/16 12:02) Rash Certification: Further, I certify that my clinical findings support that this patient is homebound (i.e. absences from home require considerable and taxing effort and are for medical reasons or caodaism services or infrequently or short duration when for other reasons) because: Homebound Reason: Patient requires assistance of a person or device to safely leave home, Severity of cardiac or pulmonary status limits activity tolerance Attestation: My signature below is to certify that this patient is under my care and that I, or nurse practitioner, or a physician's home health assistant working with me, has a face-to -face encounter with this patient.
[2017-04-03] MEDS ORDERED: predniSONE 20 MG TABLET PO SCH (09:00)
--- NOTE | 2017-04-03 17:17 | Electrocardiograph Report ---
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
== END 2017-04-03 10:07 | disposition home or self-care (01) | DRG 191 ==
LOC: EMEROO 14:55 → 3BNU 14:55 → SUATTDRO 16:53 → 3BNU 18:35
PROVIDERS: ADMIT Family Medicine; ATTEND Internal Medicine

== ENCOUNTER 2017-11-16 06:56 | Inpatient (IN) ==
[2017-11-16] MEDS ORDERED: Ipratropium/Albuterol Neb 3 ML IH ONE (07:09)
[2017-11-16] MEDS ORDERED: methylPREDNISolone 125 MG/2 ML VIAL IVP ONE (07:09)
[2017-11-16] MEDS ORDERED: Ibuprofen 800 MG TABLET PO ONE (07:16)
[2017-11-16 07:18] LABS: Basophils # 0.1 K/mcL (0.0-0.2); Basophils % 0.4 %; Eosinophils # 0.2 K/mcL (0.0-0.6); Eosinophils % 1.1 %; Hematocrit 35.7 % (37.5-50.1); Hemoglobin 10.4 g/dL (12.9-16.9); Immature Granulocytes % 0.4 % (0-4); Lymphocytes # 1.4 K/mcL (0.6-4.6); Lymphocytes % 9.6 %; Mean Corpuscular HGB Conc 29.1 g/dL (31.6-35.5); Mean Corpuscular Hemoglobin 25.9 pg (28.0-33.3); Mean Platelet Volume 9.1 fL (9.4-12.4); Monocytes % 7.1 %; Neutrophils # 11.6 K/mcL (1.6-8.9); Platelet Count 236 K/mcL (140-400); Red Blood Count 4.01 M/mcL (4.19-5.50); Red Cell Distribution Width 12.9 % (11.5-14.5); Segmented Neutrophils % 81.4 %
--- NOTE | 2017-11-16 07:24 | Emergency Department Note ---
Disposition Clinical Impression: Acute exacerbation of chronic obstructive airways disease, Acute on chronic respiratory failure with hypoxia and hypercapnia Community acquired pneumonia Qualifiers: Laterality: left Lung location: lower lobe of lung Qualified Code(s): J18.1 - Lobar pneumonia, unspecified organism Sepsis Qualifiers: Sepsis type: sepsis due to unspecified organism Qualified Code(s): A41.9 - Sepsis, unspecified organism Disposition: Admitted As Inpatient Condition: Fair Time of Disposition: 08:28 SOB HPI - General Chief Complaint: ED Shortness of Breath/Dyspnea Stated Complaint: MEG Time Seen by Provider: 11/16/17 07:09 Source: patient, family, EMS Mode of arrival: ambulatory Limitations: no limitations Nursing Notes Reviewed: Yes Vital Signs Reviewed: Yes - History of Present Illness 65-year-old male history of COPD, lobectomy, baseline on 5 L of oxygen, patient presents with respiratory distress, shortness of breath, urologist via EMS, per the report they gave him 1 albuterol treatment and this helped improve his symptoms. Patient was on a face mask 10 L. Patient states that worsening shortness of breath, worsening productive cough for the last day. Patient denies history of CABG, has no history of CAD, has had bilateral lobectomy lobe reduction for COPD patient reports increase increased productive cough, low- grade fever and chills, crushing chest pressure, diaphoresis, radiation of pain. Patient denies abdominal pain, hematochezia, melena. Pt Subjective Complaint: shortness of breath Onset (ago): minute(s) Severity: none Improves with: oxygen Worsens with: nothing Known history of: COPD Associated symptoms: Reports: chest pain, pain with inspiration, fever, cough, wheezing, sputum production. Denies: orthopnea, lower extremity pain, polydipsia, parasthesias Treatment prior to arrival: none - Related Data Home Medications Medication Instructions Recorded Confirmed Albuterol Neb [Proventil Neb] 2.5 mg IH TID PRN 05/09/15 11/16/17 Albuterol Sulfate [Albuterol 2 puff IH Q4HR PRN 05/09/15 11/16/17 Inhaler] Arformoterol Tartrate [Brovana] 15 mcg IH BID 05/09/15 11/16/17 Atorvastatin Calcium [Lipitor] 40 mg PO HS 05/09/15 11/16/17 Budesonide Neb [Pulmicort Neb] 0.25 mg IH BID 05/09/15 11/16/17 Docusate Sodium [Dulcolax Stool 100 mg PO HS 05/09/15 11/16/17 Softener] Oxygen 3 l NS AD 05/09/15 11/16/17 Pantoprazole Sodium [Protonix] 40 mg PO QAM 05/09/15 11/16/17 Polyethylene Glycol 3350 [MiraLAX] 17 gm PO DAILY PRN 05/09/15 11/16/17 Tiotropium [Spiriva] 18 mcg IH QAM 05/09/15 11/16/17 Travoprost [Travatan Z] 1 drop OP HS 05/09/15 11/16/17 Furosemide [Lasix] 20 mg PO DAILY 09/21/16 11/16/17 Potassium Chloride [K-Tab ER] 10 meq PO DAILY 09/21/16 11/16/17 Venlafaxine HCl [Venlafaxine HCl 150 mg PO QAM 09/21/16 11/16/17 ER] Diltiazem HCl [Diltiazem 24Hr Cd] 180 mg PO DAILY 03/31/17 11/16/17 Nitroglycerin [Nitrostat] 0.4 mg SL Q5M PRN 03/31/17 11/16/17 Oxycodone HCl/Acetaminophen 1 - 2 each PO Q6H PRN 03/31/17 11/16/17 [Percocet 5-325 mg Tablet] Roflumilast [Daliresp] 500 mcg PO DAILY 03/31/17 11/16/17 Allergies Allergy/AdvReac Type Severity Reaction Status Date / Time hydrocodone [From Vicodin] Allergy Mild Rash Verified 09/21/16 12:02 Penicillins [PCN] Allergy Mild Rash Verified 09/21/16 12:02 acetaminophen [From Vicodin] Allergy Rash Verified 09/21/16 12:02 All systems ED: reviewed and negative except as stated. Review of Systems: As Per HPI Constitutional: Denies: fever, chills Eyes: Denies: eye pain ENT ED: Denies: ear pain Cardiovascular: Reports: as per HPI, chest pain. Denies: syncope, paroxysmal nocturnal dyspnea Respiratory: Reports: as per HPI, cough, dyspnea, wheezes Gastrointestinal: Denies: abdominal pain, nausea Genitourinary: Denies: urgency Musculoskeletal: Denies: back pain Integumentary: Denies: rash Neurological: Denies: headache Psychiatric: Denies: anxiety Past Medical History - Past Medical History Attestation: Yes The following information was validated with the patient. Source: patient Medical history: Reports: arthritis, asthma, cancer, COPD, GERD, glaucoma, hyperlipidemia, valvular heart disease, other Surgical history: Reports: herniorrhaphy, orthopedic, other, sinus surgery, other Psychiatric history: Reports: anxiety, PTSD - Social History Smoking Status: Former smoker Smokeless Tobacco Status: No Alcohol use: Reports: none Drug use: Reports: none Physical Exam Constitutional: 67-year-old male in mild to moderate respiratory distress. On facemask oxygen 10L tachycardic tachpneic Eyes: PERRLA, sclera anicteric ENT & Mouth: MMM Neck: normal inspection, neck is supple Resp: Diffuse inspiratory and expiratory wheezes, decreased air movement bilaterally, midline incision consistent with previous lobectomy CV: Tachycardia, no murmurs. GI: normal inspection, soft, no guarding or rigidity Neuro: A&O3, CNII-XII grossly intact, LOZANO Skin: on limited exam, skin intact with no rashes or lesions - General Limitations: no limitations General appearance: alert, in distress Course Course Narrative: 67-year-old male that appears moderately short of breath, mild to moderate respiratory distress, placed on facemask, 10 L initially, DuoNeb 3 slightly Medrol ordered basic lab work CBC BMP lactate troponin - Reevaluation(s) Reevaluation #1: Patient's chest x-ray shows atelectasis versus new left given fever, elevated white count and possible pneumonia, the patient has fever, tachycardia, leukocytosis, and secondly septic with COPD exacerbation, will start on Levaquin given that he has no recent hospitalizations, I paged Dr. Brown for inpatient admission 7:46. Reevaluation #2: Patient admitted for pneumonia, COPD exacerbation, acute on chronic respiratory failure, admitted to the hospitalist on Levaquin, lactate nonelevated no evidence of severe sepsis. It is febrile and tachycardic meets criteria for sepsis. Time: 08:30 Vital Signs Temperature 100.4 F H 11/16/17 06:59 Pulse Rate 120 11/16/17 06:59 Respiratory Rate 30 11/16/17 06:59 Blood Pressure 133/72 11/16/17 06:59 O2 Sat by Pulse Oximetry 99 11/16/17 06:59 Temperature 100.4 F H 11/16/17 06:59 Pulse Rate 106 11/16/17 07:39 Respiratory Rate 20 11/16/17 07:39 Blood Pressure 128/67 11/16/17 07:39 O2 Sat by Pulse Oximetry 98 11/16/17 07:39 Oxygen Delivery Oxygen Delivery Aerosol Mask Shortness of Breath/Dyspnea - Differential Diagnosis Likely: acute exacerbation of chronic obstructive airways disease, congestive heart failure, pneumonia, pulmonary embolism - Medical Records Medical records reviewed: Yes I reviewed the patient's medical records. - Lab Data Lab results reviewed: Yes I reviewed the patient's lab results. Result diagrams: 11/16/17 07:01 11/16/17 07:01 Lab Results 11/16/17 11/16/17 11/16/17 Range/Units 07:01 07:01 07:01 WBC 14.2 H (4.3-11.1) K/mcL RBC 4.01 L (4.19-5.50) M/mcL Hgb 10.4 L (12.9-16.9) g/dL Hct 35.7 L (37.5-50.1) % MCV 89.0 (83.0-100.0) fL MCH 25.9 L (28.0-33.3) pg MCHC 29.1 L (31.6-35.5) g/dL RDW 12.9 (11.5-14.5) % Plt Count 236 (140-400) K/mcL MPV 9.1 L (9.4-12.4) fL Immature Gran % 0.4 (0-4) % Seg Neutrophils % 81.4 % Lymphocytes % 9.6 % Monocytes % 7.1 % Eosinophils % 1.1 % Basophils % 0.4 % Neutrophils # 11.6 H (1.6-8.9) K/mcL Lymphocytes # 1.4 (0.6-4.6) K/mcL Monocytes # 1.0 (0.0-1.3) K/mcL Eosinophils # 0.2 (0.0-0.6) K/mcL Basophils # 0.1 (0.0-0.2) K/mcL Sodium 138 (136-145) mEq/L Potassium 4.4 (3.5-5.1) mEq/L Chloride 97 L (98-107) mEq/L Carbon Dioxide 35 H (23-29) mEq/L BUN 27 H (8-23) mg/dL Creatinine 1.07 (0.70-1.30) mg/dL Est GFR ( Amer) > 60 (> 60) Est GFR (Non-Af Amer) > 60 (> 60) BUN/Creatinine Ratio 25 (6-26) Glucose 172 H (70-105) mg/dL Calculated Osmolality 295 (280-300) Lactic Acid 1.5 (0.5-2.2) mmol/L Calcium 9.5 (8.6-10.3) mg/dL Troponin I (< 0.04) ng/mL B-Natriuretic Peptide (Less than 100) pg/mL 11/16/17 11/16/17 Range/Units 07:01 07:01 WBC (4.3-11.1) K/mcL RBC (4.19-5.50) M/mcL Hgb (12.9-16.9) g/dL Hct (37.5-50.1) % MCV (83.0-100.0) fL MCH (28.0-33.3) pg MCHC (31.6-35.5) g/dL RDW (11.5-14.5) % Plt Count (140-400) K/mcL MPV (9.4-12.4) fL Immature Gran % (0-4) % Seg Neutrophils % % Lymphocytes % % Monocytes % % Eosinophils % % Basophils % % Neutrophils # (1.6-8.9) K/mcL Lymphocytes # (0.6-4.6) K/mcL Monocytes # (0.0-1.3) K/mcL Eosinophils # (0.0-0.6) K/mcL Basophils # (0.0-0.2) K/mcL Sodium (136-145) mEq/L Potassium (3.5-5.1) mEq/L Chloride (98-107) mEq/L Carbon Dioxide (23-29) mEq/L BUN (8-23) mg/dL Creatinine (0.70-1.30) mg/dL Est GFR ( Amer) (> 60) Est GFR (Non-Af Amer) (> 60) BUN/Creatinine Ratio (6-26) Glucose (70-105) mg/dL Calculated Osmolality (280-300) Lactic Acid (0.5-2.2) mmol/L Calcium (8.6-10.3) mg/dL Troponin I < 0.03 (< 0.04) ng/mL B-Natriuretic Peptide 140 H (Less than 100) pg/mL - Radiology Data Radiology results reviewed: Yes I reviewed the patient's radiology results. Chest X-Ray 11/16/17 07:09 IMPRESSION: Minimally increased left basilar opacity, likely atelectasis. Otherwise stable chest. D/ / 11/16/2017 07:36:33 Elizabeth Combs MD / sandra Interpreting Provider: Elizabeth Combs MD - EKG Data EKG attestation: Yes I reviewed and interpreted this EKG. EKG shows normal: Reports: sinus rhythm Rate: Reports: normal (1 20 bpm MD 150 QRS 154 QTc 425 left bundle branch block , no acute ischemic changes. Tachycardia) [place]/QRS: Reports: LBBB Interpretation: Reports: nonspecific ST-T wave changes - Core Measures AMI Core Measures Followed: Yes Attestation Statement - Attestation Attestation: I, Mc Perdomo, examined this patient and my medical decision-making was reviewed with the COACH MECHANIC/PA/Advanced Practice Nurse/Resident Physician. I agree with the documented findings, disposition and treatment plan as described except to the extent set forth below. 67-year-old male presents emergency department with concerns of difficulty breathing. Patient has a long history of emphysema status post lung reduction bilaterally. Patient states he developed shortness of breath within the past 24 hours. He has wheezing evident on exam in the bilateral posterior lung young. He states this is similar to his previous COPD exacerbations. EMS states patient was in respiratory distress upon their arrival with significant retractions. His work of breathing improved significantly after albuterol given by EMS. EKG showed sinus tachycardia with a rate of 120 with a left bundle-branch block. It is not present on the most recent EKG however he does have history of left bundle-branch block with elevated heart rate. Family also states that he has a history of abnormal ECG when he has had similar symptoms. Chest x-ray shows a left basilar opacity. He has a leukocytosis and is febrile emergency department. He will be started on antibiotics and admitted to the hospital for further evaluation.
[2017-11-16 07:28] LABS: BUN/Creatinine Ratio 25 (6-26); Blood Urea Nitrogen 27 mg/dL (8-23); Calcium 9.5 mg/dL (8.6-10.3); Carbon Dioxide 35 mEq/L (23-29); Chloride 97 mEq/L (98-107); Glucose 172 mg/dL (70-105); Osmolality,Calculated 295 (280-300); Potassium 4.4 mEq/L (3.5-5.1); Sodium 138 mEq/L (136-145); eGFR For African Americans > 60 (> 60); eGFR For Non-African Americans > 60 (> 60)
[2017-11-16] MEDS ORDERED: Levofloxacin 750 MG/150 ML 750 MG/150 ML BAG IVPB ONE (07:46)
[2017-11-16] MEDS ORDERED: Aspirin 81 MG TAB.CHEW PO ONE (07:48)
[2017-11-16] MEDS ORDERED: 0.9 % Sodium Chloride 1,000 ML IVC ONE (08:12)
[2017-11-16] MEDS ORDERED: Naloxone 0.4 MG/ML INJ IVP PRN (09:26)
--- NOTE | 2017-11-16 09:29 | Internal Med History&Physical ---
<Pat Paulson - Last Filed: 11/16/17 10:55> Date of Encounter: 11/16/17 Time of Encounter: 09:19 Assessment and Plan (1) Community acquired pneumonia Current visit: Yes Status: Acute Bibasilar pneumonia. SOB and productive cough with a fever. WBC 14.2 on admission. CXR report shows left basilar opacity. Plan: - continue Levoquin 750mg dailiy (initiated on 11/16) - Mucinex - Duonebs - blood cultures ordered - Incentive spirometer (2) COPD exacerbation Current visit: Yes Status: Acute 2/2 pneumonia. Will consult pulmology as patient follows with Dr. Cortez. Plan: - Duonebs - consult pulm - methylprednisone 60mg Q8hr daily - continue home resp meds: Symbicort, hold Spiriva - continue oxygen support (3) Chronic anemia Current visit: Yes Status: Acute chronic anemia 2/2 to chronic disease. baseline 10.4. No signs of bleeding. Will continue to monitor. (4) CAD (coronary artery disease) Current visit: Yes Status: Acute EKG showed LBBB. Troponin negative. Most recent Echo 04/13. Continue home medications: Cardizem Qualifiers: Coronary Disease-Associated Artery/Lesion type: [place] artery [place] vs. transplanted heart: [place] heart Associated angina: without angina Qualified Code(s): I25.10 - Atherosclerotic heart disease of [place] coronary artery without angina pectoris (5) DVT prophylaxis Current visit: Yes Status: Acute [facility] Internal Medicine - H&P: HPI Chief complaint: SOB Admitted From: Home Plans for Post Hospital Care: Home History of present illness: Mr. Bess is a 67 year old male with a past medical history of COPD status post bilateral lobectomy for emphysema, HLD, CAD, and anxiety presented to the ED with shortness of breath and productive cough for 2 days. Patient states that he began coughing yesterday with "creamy" sputum and will go up this morning at 4 AM due to shortness of breath pain bilaterally in his ribs and increased chest pressure. Patient states that he is on home oxygen 5 L 24/7 for the last 4 years. Patient has been hospitalized for breathing problems 3 times in the last year. Patient's mortar mixer is Dr. Cortez. Patient has been out of Daliresp 500mg tablets for 1 month but has not noticed a difference on or off his medication. Last Echo 04/13 showed EF 45-50%, mild LV and diastolic dysfunction. Atypical septum motion consistent with LBBB. In the ED chest x-ray was obtained and showed left basilar opacity minimal. EKG showed left bundle branch block only with no change. He was given 1 dose of Levaquin, methylprednisone, and duo nebs. Past Med Surg Social Fam HX - Past Medical History Medical history: arthritis, asthma, cancer, COPD, GERD, glaucoma, hyperlipidemia , valvular heart disease, other Psychiatric history: anxiety, PTSD - Past Surgical History Surgical History: herniorrhaphy, orthopedic, other, sinus surgery, other - Social History Smoking Status: Former smoker Smokeless Tobacco Status: No Alcohol use: none Drug use: none - Family History Mother Living Status: Hx Family Cancer: Yes (Rectal) Father Living Status: Hx Family Respiratory Disorders: Yes Brother Adopted: No Family Member Ethnicity: Non- Living Status: Hx Family Cardiac Disorders: Yes (murmur) Hx Family Respiratory Disorders: Yes (Lung CA,COPD) Hx Family Cancer: Yes (Lung CA) Hx Family GI Disorders: No Hx Family Endocrine Disorder: No Hx Family Neuromuscular Disorders: No Hx Family Neurologic Disorders: No Hx Family HEENT Disorders: No Hx Family Autoimmune Disorders: No Internal Medicine - H&P: Meds Albuterol Neb [Proventil Neb] 2.5 mg IH TID PRN 05/09/15 [History] Albuterol Sulfate [Albuterol Inhaler] 2 puff IH Q4HR PRN 05/09/15 [History] Arformoterol Tartrate [Brovana] 15 mcg IH BID 05/09/15 [History] Atorvastatin Calcium [Lipitor] 40 mg PO HS 05/09/15 [History] Budesonide Neb [Pulmicort Neb] 0.25 mg IH BID 05/09/15 [History] Docusate Sodium [Dulcolax Stool Softener] 100 mg PO HS 05/09/15 [History] Oxygen 3 l NS AD 05/09/15 [History] Pantoprazole Sodium [Protonix] 40 mg PO QAM 05/09/15 [History] Polyethylene Glycol 3350 [MiraLAX] 17 gm PO DAILY PRN 05/09/15 [History] Tiotropium [Spiriva] 18 mcg IH QAM 05/09/15 [History] Travoprost [Travatan Z] 1 drop OP HS 05/09/15 [History] Furosemide [Lasix] 20 mg PO DAILY 09/21/16 [History] Potassium Chloride [K-Tab ER] 10 meq PO DAILY 09/21/16 [History] Venlafaxine HCl [Venlafaxine HCl ER] 150 mg PO QAM 09/21/16 [History] Diltiazem HCl [Diltiazem 24Hr Cd] 180 mg PO DAILY 03/31/17 [History] Nitroglycerin [Nitrostat] 0.4 mg SL Q5M PRN 03/31/17 [History] Oxycodone HCl/Acetaminophen [Percocet 5-325 mg Tablet] 1 - 2 each PO Q6H PRN 01/12 [History] Roflumilast [Daliresp] 500 mcg PO DAILY 03/31/17 [History] 3 Allergy/AdvReac Type Severity Reaction Status Date / Time hydrocodone [From Vicodin] Allergy Mild Rash Verified 11/16/17 09:37 Penicillins [PCN] Allergy Mild Rash Verified 11/16/17 09:37 All Systems PM: A 10-system review of systems was performed and is negative for pertinent findings except as documented above in the HPI. - Constitutional Constitutional: as per HPI - Constitutional Vitals: Temp Pulse Resp BP Pulse Ox 100.4 F H 98 15 136/63 99 11/16/17 06:59 11/16/17 08:30 11/16/17 08:30 11/16/17 08:30 11/16/17 08:30 - Other Additional findings: Constitutional: Alert, in no acute distress, well nourished, well developed, tattoos present Head: Normocephalic, atraumatic, normal contour and symmetric, Heart: Normal, regular rate and rhythm, no murmurs Lungs: expiratory rales with scattered wheezing throughout the lung young, breathing comfortably without use of accessory muscles on oxymask 7L Abdomen: Soft, nondistended, nontender, bowel sounds present and normal, no guarding or rigidity. Extremities: No clubbing, cyanosis, or edema, radial pulse +2/4, capillary refill <2sec. Skin: Skin warm and dry, no lesions, no rashes, no jaundice Neurologic: Cranial nerves II through XII grossly intact, no focal deficits, strength within normal limits in all extremities Psych: Cooperative with exam, good eye contact, cognitive function intact, judgment good insight good, speech clear, thought process logical, and goal directed Internal Med - H&P Results - Labs CBC & Chem 7: 11/16/17 07:01 11/16/17 07:01 <Omid Brown - Last Filed: 11/16/17 19:00> Date of Encounter: 11/16/17 Internal Medicine - H&P: HPI History of present illness: Mr. Bess is a 67 year old male All Systems PM: A 10-system review of systems was performed and is negative for pertinent findings except as documented above in the HPI. - Constitutional Vitals: Temp Pulse Resp BP Pulse Ox 99.8 F H 95 18 125/65 97 11/16/17 15:59 11/16/17 15:59 11/16/17 16:39 11/16/17 15:59 11/16/17 16:39 Internal Med - H&P Results - Labs CBC & Chem 7: 11/16/17 07:01 11/16/17 07:01 - Attending Attestation I had a [id number] diagnostic evaluation of this patient and my medical decision-making was reviewed with the Resident Physician Dr Paulson. I agree with the documented findings, disposition and treatment plan as described except to the extent set forth below. Patient presented with worsening shortness of breath and productive cough. Initially he was tachypneic with respiratory rate of 30 and required high flow oxygen by face mask at 15 L/m. We will admit the patient for treatment of COPD exacerbation, pneumonia and acute hypoxic respiratory failure. We will provide treatment with supplemental oxygen, IV steroids, inhaled bronchodilators and IV antibiotics. Omid Brown MD
[2017-11-16] MEDS ORDERED: Albuterol 2.5 MG/3 ML NEBULIZER IH PRN (09:30)
[2017-11-16] MEDS ORDERED: Tiotropium 18 MCG inhalation IH SCH (09:45)
[2017-11-16] MEDS ORDERED: Budesonide Neb 0.25 MG/2 ML IH SCH (10:00)
[2017-11-16] MEDS ORDERED: Levofloxacin 750 MG/150 ML 750 MG/150 ML BAG IVPB SCH (11:00)
[2017-11-16] MEDS: Budesonide Neb 0.25 MG/2 ML IH SCH ×2 (11:28→21:51)
[2017-11-16] MEDS: Albuterol 2.5 MG/3 ML NEBULIZER IH SCH ×3 (11:28→21:51)
--- NOTE | 2017-11-16 14:02 | Pulmonology Consult Note ---
Date of Encounter: 11/16/17 Time of Encounter: 14:00 Assessment and Plan (1) Acute exacerbation of chronic obstructive airways disease Current Visit: No Status: Acute Patient presenting with acute exacerbation of COPD with flu panel negative to continue bronchodilators and steroids . To wean down FIO2 to keep SPO2 around 92 % (2) Acute on chronic respiratory failure with hypoxia and hypercapnia Current Visit: Yes Status: Acute To continue O2 supplementation to Keep SPO2 around 90% will do BIPAP at night 14 /8 cm H2O patient tolerated these settings in the previous admission . To get ABG with current O2 supplementation (3) Pulmonary hypertension Current Visit: No Status: Chronic Class III and II secondary to advanced lung disease and CHF . History of Present Illness Consult date: 11/16/17 Requesting physician: James Lux Reason for consult: dyspnea, cough, COPD Chief complaint: Increased shortness of breadth and cough History of present illness: 67 year old male with past medical history significant for Severe COPD with O2 dependent and also chronic hypercapnia on NIV trilogy in night of late he is having increased shortness of breadth with cough and sputum production according to patient this more than baseline denies any sick contact around , denies any chest pain or tightness ,denies any fever or chills , denies any palpitations or syncope , denies any GI symptoms , denies any headache or denies any neuro symptoms , this shortness of breadth increased few days which got worsened overnight and early this morning , patient had bilateral upper lobectomy 18 yrs ago due to severe bullous disease patient says after the bronchodilators and he is feeling better . Pulmonary was consulted for COPD exacerbation in the background of his Advanced COPD Past Med Surg Social Fam HX - Past Medical History Medical history: arthritis, asthma, cancer, COPD, GERD, glaucoma, hyperlipidemia , valvular heart disease, other Psychiatric history: anxiety, PTSD - Past Surgical History Surgical History: herniorrhaphy, orthopedic, other, sinus surgery, other - Social History Smoking Status: Former smoker Smokeless Tobacco Status: No Alcohol use: none Drug use: none - Family History Mother Living Status: Hx Family Cancer: Yes (Rectal) Father Living Status: Hx Family Respiratory Disorders: Yes Brother Adopted: No Family Member Ethnicity: Non- Living Status: Hx Family Cardiac Disorders: Yes (murmur) Hx Family Respiratory Disorders: Yes (Lung CA,COPD) Hx Family Cancer: Yes (Lung CA) Hx Family GI Disorders: No Hx Family Endocrine Disorder: No Hx Family Neuromuscular Disorders: No Hx Family Neurologic Disorders: No Hx Family HEENT Disorders: No Hx Family Autoimmune Disorders: No Medications and Allergies Albuterol Neb [Proventil Neb] 2.5 mg IH TID PRN 05/09/15 [History] Albuterol Sulfate [Albuterol Inhaler] 2 puff IH Q4HR PRN 05/09/15 [History] Arformoterol Tartrate [Brovana] 15 mcg IH BID 05/09/15 [History] Atorvastatin Calcium [Lipitor] 40 mg PO HS 05/09/15 [History] Budesonide Neb [Pulmicort Neb] 0.25 mg IH BID 05/09/15 [History] Docusate Sodium [Dulcolax Stool Softener] 100 mg PO HS 05/09/15 [History] Oxygen 3 l NS AD 05/09/15 [History] Pantoprazole Sodium [Protonix] 40 mg PO QAM 05/09/15 [History] Polyethylene Glycol 3350 [MiraLAX] 17 gm PO DAILY PRN 05/09/15 [History] Tiotropium [Spiriva] 18 mcg IH QAM 05/09/15 [History] Travoprost [Travatan Z] 1 drop OP HS 05/09/15 [History] Furosemide [Lasix] 20 mg PO DAILY 09/21/16 [History] Potassium Chloride [K-Tab ER] 10 meq PO DAILY 09/21/16 [History] Venlafaxine HCl [Venlafaxine HCl ER] 150 mg PO QAM 09/21/16 [History] Diltiazem HCl [Diltiazem 24Hr Cd] 180 mg PO DAILY 03/31/17 [History] Nitroglycerin [Nitrostat] 0.4 mg SL Q5M PRN 03/31/17 [History] Oxycodone HCl/Acetaminophen [Percocet 5-325 mg Tablet] 1 - 2 each PO Q6H PRN 01/12 [History] Roflumilast [Daliresp] 500 mcg PO DAILY 03/31/17 [History] 3 Allergy/AdvReac Type Severity Reaction Status Date / Time hydrocodone [From Vicodin] Allergy Mild Rash Verified 11/16/17 09:37 Penicillins [PCN] Allergy Mild Rash Verified 11/16/17 09:37 All Systems: All other review of systems were reviewed found to be negative except mentioned in HPI Physical Examination Vital Signs: Vital Signs, Last 4 Hours Temp Pulse Resp BP Pulse Ox 11/16/17 12:03 99.0 F 107 20 133/68 98 11/16/17 11:30 20 99 Auscultation: bilateral: wheezes Extremities: no edema Results - Laboratory Findings CBC and BMP: 11/16/17 07:01 11/16/17 07:01 Abnormal lab findings: Abnormal lab results WBC 14.2 K/mcL (4.3-11.1) H 11/16/17 07:01 RBC 4.01 M/mcL (4.19-5.50) L 11/16/17 07:01 Hgb 10.4 g/dL (12.9-16.9) L 11/16/17 07:01 Hct 35.7 % (37.5-50.1) L 11/16/17 07:01 MCH 25.9 pg (28.0-33.3) L 11/16/17 07:01 MCHC 29.1 g/dL (31.6-35.5) L 11/16/17 07:01 MPV 9.1 fL (9.4-12.4) L 11/16/17 07:01 Neutrophils # 11.6 K/mcL (1.6-8.9) H 11/16/17 07:01 Chloride 97 mEq/L (98-107) L 11/16/17 07:01 Carbon Dioxide 35 mEq/L (23-29) H 11/16/17 07:01 BUN 27 mg/dL (8-23) H 11/16/17 07:01 Glucose 172 mg/dL (70-105) H 11/16/17 07:01 B-Natriuretic Peptide 140 pg/mL (Less than 100) H 11/16/17 07:01 - Clinical Findings Intake & Output: Intake & Output 11/15/17 11/16/17 11/16/17 23:59 07:59 15:59 Intake Total 440 / 440 Output Total 400 / 400 Balance 40 / 40 Weight 92.896 kg Consult Discharge Plan - Plan Referrals: Morris Hudson DO [Primary Care Provider] -
[2017-11-16] MEDS: methylPREDNISolone 125 MG/2 ML VIAL IVP SCH (15:33)
[2017-11-16 16:48] LABS: Adenovirus Not Detected (Not Detect); Bordetella Pertussis Not Detected (Not Detect); Chlamydophila pneumoniae Not Detected (Not Detect); Coronavirus 229E Not Detected (Not Detect); Coronavirus HKU1 Not Detected (Not Detect); Coronavirus NL63 Not Detected (Not Detect); Coronavirus OC43 Not Detected (Not Detect); Human Metapneumovirus Not Detected (Not Detect); Human Rhinovirus/Enterovirus Not Detected (Not Detect); Influenza A Subtype 2009 H1 Not Detected (Not Detect); Influenza A Untypeable Not Detected (Not Detect); Influenza B Not Detected (Not Detect); Mycoplasma pneumoniae Not Detected (Not Detect); Parainfluenza Virus 1 Not Detected (Not Detect); Parainfluenza Virus 2 Not Detected (Not Detect); Parainfluenza Virus 3 Not Detected (Not Detect); Parainfluenza Virus 4 Not Detected (Not Detect); Respiratory Syncytial Virus Not Detected (Not Detect)
[2017-11-16] MEDS ORDERED: *HR* Enoxaparin 30 MG/0.3 ML SYRINGE SQ SCH (18:00)
[2017-11-16] MEDS ORDERED: ARFORMOTEROL TARTRATE 15 MCG IH SCH (21:00)
[2017-11-17] MEDS: methylPREDNISolone 125 MG/2 ML VIAL IVP SCH ×3 (00:23→16:03)
[2017-11-17] MEDS: Albuterol 2.5 MG/3 ML NEBULIZER IH SCH ×4 (04:37→22:37)
[2017-11-17] MEDS: *HR* Enoxaparin 40 MG/0.4 ML SYRINGE SQ SCH (05:23)
[2017-11-17 05:55] LABS: Hematocrit 30.2 % (37.5-50.1); Immature Granulocytes % 1.7 % (0-4); Lymphocytes # 0.4 K/mcL (0.6-4.6); Lymphocytes % 5.1 %; Mean Corpuscular HGB Conc 29.8 g/dL (31.6-35.5); Mean Corpuscular Hemoglobin 26.2 pg (28.0-33.3); Mean Platelet Volume 9.6 fL (9.4-12.4); Monocytes # 0.1 K/mcL (0.0-1.3); Monocytes % 1.4 %; Neutrophils # 7.4 K/mcL (1.6-8.9); Nucleated Red Blood Cells 0.5 /100 WBC (0); Platelet Count 211 K/mcL (140-400); Red Blood Count 3.43 M/mcL (4.19-5.50); Red Cell Distribution Width 13.3 % (11.5-14.5); Segmented Neutrophils % 91.8 %
[2017-11-17 06:13] LABS: BUN/Creatinine Ratio 39 (6-26); Blood Urea Nitrogen 30 mg/dL (8-23); Calcium 9.5 mg/dL (8.6-10.3); Carbon Dioxide 32 mEq/L (23-29); Chloride 103 mEq/L (98-107); Glucose 143 mg/dL (70-105); Osmolality,Calculated 301 (280-300); Potassium 4.2 mEq/L (3.5-5.1); Sodium 141 mEq/L (136-145); eGFR For African Americans > 60 (> 60); eGFR For Non-African Americans > 60 (> 60)
[2017-11-17] MEDS: Venlafaxine XR (24 HR) 150 MG CAP.ER.24H PO SCH (08:10)
[2017-11-17] MEDS: Furosemide 20 MG TABLET PO SCH (08:10)
[2017-11-17] MEDS: Diltiazem CD (24hr) 180 MG CAPSULE PO SCH (08:10)
[2017-11-17] MEDS: Levofloxacin 750 MG/150 ML 750 MG/150 ML BAG IVPB SCH (08:14)
--- NOTE | 2017-11-17 10:12 | Internal Med Progress Note ---
<Josefina Oconnor-Dasha - Last Filed: 11/17/17 12:42> Date of Encounter: 11/17/17 Time of Encounter: 09:15 - Assessment and plan (1) Sepsis Current Visit: Yes Status: Acute Assessment and plan: The patient meets sepsis criteria with elevated white blood count at 14.2, tachycardia, fever, tachypnea, and possible community-acquired pneumonia on admission. Sepsis most likely secondary to community-acquired pneumonia worsened with acute exacerbation of COPD. Respiratory panel was negative for flu. Blood cultures 2 preliminary report is negative. Initial lactic acid is 1.5. Troponin negative. Chest x-ray reads minimally increased left basilar opacity. Labs today show white blood count trending down. Patient is afebrile , in no acute distress, and is not tachycardic on my exam today. 1. Continue to monitor the patient closely. 2. Continue day 2 of IV Levaquin. 3. Final blood cultures readings are pending. Qualifiers: Sepsis type: sepsis due to unspecified organism Qualified Code(s): A41.9 - Sepsis, unspecified organism (2) Community acquired pneumonia Current Visit: Yes Status: Acute Assessment and plan: Patient is afebrile and appears in no acute distress. Patient admits shortness of breath with productive cough. Patient oxygen saturation 94% on 4 L of nasal cannula. White blood count is 8.0 today. Chest x-ray read minimally increased left basilar opacity. 1. Continue patient on day 2 IV Levaquin. 2. Continue duo nebs. 3. Final blood cultures are pending Qualifiers: Laterality: left Lung location: lower lobe of lung Qualified Code(s): J18.1 - Lobar pneumonia, unspecified organism (3) Acute exacerbation of chronic obstructive airways disease Current Visit: Yes Status: Acute Assessment and plan: Acute exacerbation of COPD most likely secondary to pneumonia. Pulmonology is consulted. Patient has a history of severe COPD dependent on home oxygen at 4 L. Patient follows with . 1. Continue day 2 of IV Levaquin. 2. Continue Mucinex. 3. Continue duo nebs. 4. Final blood cultures results are pending. 5. Incentive spirometer. 6. Maintain oxygen saturation at 88-92%. Supplemental oxygen as needed. 7. Continue home respiratory medications. Hold Spiriva 8. Continue methylprednisone 60 mg Q8hr daily (4) Chronic anemia Current Visit: Yes Status: Acute Assessment and plan: History of chronic anemia. Hemoglobin baseline approximately 10.4. Hemoglobin today is 9.0. Patient is asymptomatic at this time. Continue to monitor the patient closely. (5) CAD (coronary artery disease) Current Visit: Yes Status: Acute Assessment and plan: Patient complains of chest pressure today. Will order EKG. Troponins are negative. EKG showed no acute ischemic changes. Most recent echo is in March 2017 which showed ejection fraction at 45-50% with mild left ventricular and diastolic dysfunction.. Continue home medications. Qualifiers: Coronary Disease-Associated Artery/Lesion type: [place] artery [place] vs. transplanted heart: [place] heart Associated angina: without angina Qualified Code(s): I25.10 - Atherosclerotic heart disease of [place] coronary artery without angina pectoris - Time Spent With Patient Greater than 35 minutes - Subjective Interval history: The patient was seen and evaluated at bedside this morning. The patient is awake, alert, interactive, afebrile, and appears in no acute distress. Patient states that he feels a lot better compared to when he was admitted. He admits shortness of breath that is worsened with exertion. Today, he states his shortness of breath is moderately worse than his baseline shortness of breath. He states that "it feels like I can't get air out". The patient admits he still has a productive cough and chest pressure across his chest. He states that the chest pressure started earlier this morning but has improved since. Denies any chest pain radiation. Patient denies any fever, headaches, vision changes, chest pain, difficulty breathing, abdominal pain, diarrhea, constipation, nausea and vomiting, difficulty urinating, blood in his stool, numbness and tingling, or any weaknesses. The patient has no other concerns at this time. - Constitutional Vitals: Temp Pulse Resp BP Pulse Ox 97.9 F 107 18 142/69 94 11/17/17 08:04 11/17/17 08:04 11/17/17 08:04 11/17/17 08:04 11/17/17 08:18 General appearance: Present: cooperative, A&O X 3, no acute distress Exam: Repeated vitals on exam. Heart rate was 98bpm on exam. - Head Head exam: Present: atraumatic, normocephalic - Eye Eye exam: Present: EOMI, PERRL, conjuntiva pink, sclera anicteric Pupils: Present: PERRL - ENT ENT exam: Present: mucous membranes moist - Neck Neck exam general surgery: Present: supple, trachea midline. Absent: lymphadenopathy, tenderness - Respiratory Respiratory exam: Present: decreased breath sounds, rales, wheezes. Absent: accessory muscle use, chest wall tenderness, respiratory distress, rhonchi, stridor, tachypnea Additional comments: cough present on exam. - Expanded Respiratory Exam Location: decreased breath sounds: Left, Right, Upper, rales: Left, Right, Lower , wheezes: Left, Right, Lower, Upper - Cardiovascular Cardiovascular exam: Present: RRR, +S1, +S2. Absent: diastolic murmur, gallop, rubs, systolic murmur - GI/Abdominal GI/Abdominal exam: Present: normal bowel sounds, soft, no peritoneal signs. Absent: distended, guarding, tenderness - Extremities Exam Extremities exam: Present: warm, radial pulses palpable and symmetrical. Absent : calf tenderness, cyanotic, pedal edema - Neurological Exam Neurological exam: Present: alert, CN II-XII intact, oriented X3, no focal deficits. Absent: pronater drift, facial droop, speech deficit - Skin Skin exam: Present: dry, intact, warm Internal Medicine: Result - Labs CBC & Chem 7: 11/17/17 05:13 11/17/17 05:13 Labs: Short CBC 11/17/17 Range/Units 05:13 WBC 8.0 (4.3-11.1) K/mcL Hgb 9.0 L (12.9-16.9) g/dL Hct 30.2 L (37.5-50.1) % Plt Count 211 (140-400) K/mcL Neutrophils # 7.4 (1.6-8.9) K/mcL BMP 11/17/17 05:13 Sodium 141 Potassium 4.2 Chloride 103 Carbon Dioxide 32 H BUN 30 H Creatinine 0.76 Glucose 143 H Calcium 9.5 Consult Discharge Plan - Plan Referrals: Morris Hudson DO [Primary Care Provider] - (Web request sent due to no answer) <Sam Dukes - Last Filed: 11/17/17 16:25> Date of Encounter: 11/17/17 - Assessment and plan (1) Acute exacerbation of chronic obstructive airways disease Current Visit: Yes Status: Acute (2) Sepsis Current Visit: Yes Status: Acute Qualifiers: Sepsis type: sepsis due to unspecified organism Qualified Code(s): A41.9 - Sepsis, unspecified organism (3) Pneumonia Current Visit: Yes Status: Acute Assessment and plan: Continue IV abx. Qualifiers: Pneumonia type: due to Pneumococcus Laterality: left Lung location: lower lobe of lung Qualified Code(s): J13 - Pneumonia due to Streptococcus pneumoniae (4) Chronic respiratory failure Current Visit: No Status: Chronic Qualifiers: Respiratory failure complication: hypoxia Qualified Code(s): J96.11 - Chronic respiratory failure with hypoxia (5) CAD (coronary artery disease) Current Visit: Yes Status: Acute Qualifiers: Coronary Disease-Associated Artery/Lesion type: [place] artery [place] vs. transplanted heart: [place] heart Associated angina: without angina Qualified Code(s): I25.10 - Atherosclerotic heart disease of [place] coronary artery without angina pectoris (6) Congestive heart failure Current Visit: No Status: Chronic Qualifiers: Qualified Code(s): I50.22 - Chronic systolic (congestive) heart failure - Constitutional Vitals: Temp Pulse Resp BP Pulse Ox 98.2 F 100 17 119/68 97 11/17/17 11:07 11/17/17 11:07 11/17/17 11:07 11/17/17 11:07 11/17/17 11:07 Internal Medicine: Result - Labs CBC & Chem 7: 11/17/17 05:13 11/17/17 05:13 Labs: Short CBC 11/17/17 Range/Units 05:13 WBC 8.0 (4.3-11.1) K/mcL Hgb 9.0 L (12.9-16.9) g/dL Hct 30.2 L (37.5-50.1) % Plt Count 211 (140-400) K/mcL Neutrophils # 7.4 (1.6-8.9) K/mcL BMP 11/17/17 05:13 Sodium 141 Potassium 4.2 Chloride 103 Carbon Dioxide 32 H BUN 30 H Creatinine 0.76 Glucose 143 H Calcium 9.5 - Attending Attestation I examined this patient and my medical decision-making was reviewed with the Resident Physician on 11/17/17. I agree with the documented findings, disposition and treatment plan as described except to the extent set forth below. Mr Bess is currently admitted for acute exac COPD. He remains moderate to high risk due to potential for worsening clinical status. Mr Bess is beginning to feel somewhat better. Less SOB. Still with cough. No fever at this time. Exam Alert. Mod resp distress Mucus membranes dry Heart reg Lungs with diffuse end exp wheeze Abd soft I/P 1. Acute exac COPD 2. Hypoxia Further diagnoses and plan as above.
[2017-11-17] MEDS: Budesonide Neb 0.25 MG/2 ML IH SCH ×2 (11:48→22:37)
--- NOTE | 2017-11-17 12:45 | Pulmonology Progress Note ---
Date of Encounter: 11/17/17 Time of Encounter: 12:15 Assessment and Plan (1) Acute exacerbation of chronic obstructive airways disease Current Visit: Yes Status: Acute To continue the current treatment regimen to use BIPAP at night (2) Acute on chronic respiratory failure with hypoxia and hypercapnia Current Visit: Yes Status: Acute Patient use BIPAP at night will use his home NIV on discharge will discharge with prolonged steroid taper over 14 days (3) Pulmonary hypertension Current Visit: No Status: Chronic Secondary to Class II and III Subjective Principal diagnosis: COPD Exacerbation Interval history: Patient says he is doing well , shortness of breadth lot improved used BIPAP tonight Objective PUL Vital signs: Last Vital Signs Temp 98.2 F 11/17/17 11:07 Pulse 100 11/17/17 11:07 Resp 17 11/17/17 11:07 BP 119/68 11/17/17 11:07 Pulse Ox 97 11/17/17 11:07 Auscultation: bilateral: diminished breath sounds (basilar diminished ), wheezes Results - Laboratory Findings CBC and BMP: 11/17/17 05:13 11/17/17 05:13 Abnormal lab findings: Abnormal lab results RBC 3.43 M/mcL (4.19-5.50) L 11/17/17 05:13 Hgb 9.0 g/dL (12.9-16.9) L 11/17/17 05:13 Hct 30.2 % (37.5-50.1) L 11/17/17 05:13 MCH 26.2 pg (28.0-33.3) L 11/17/17 05:13 MCHC 29.8 g/dL (31.6-35.5) L 11/17/17 05:13 Lymphocytes # 0.4 K/mcL (0.6-4.6) L 11/17/17 05:13 Nucleated RBCs/100 WBC 0.5 /100 WBC (0) H 11/17/17 05:13 Carbon Dioxide 32 mEq/L (23-29) H 11/17/17 05:13 BUN 30 mg/dL (8-23) H 11/17/17 05:13 BUN/Creatinine Ratio 39 (6-26) H 11/17/17 05:13 Glucose 143 mg/dL (70-105) H 11/17/17 05:13 Calculated Osmolality 301 (280-300) H 11/17/17 05:13 B-Natriuretic Peptide 140 pg/mL (Less than 100) H 11/16/17 07:01 - Clinical Findings Intake & Output: Intake & Output 11/16/17 11/17/17 11/17/17 23:59 07:59 15:59 Output Total 300 / 300 400 / 400 500 / 500 Balance -300 / -300 -400 / -400 -500 / -500 Weight 92.8 kg Consult Discharge Plan - Plan Referrals: Morris Hudson DO [Primary Care Provider] - (Web request sent due to no answer)
[2017-11-18] MEDS: methylPREDNISolone 125 MG/2 ML VIAL IVP SCH ×3 (00:19→17:53)
[2017-11-18] MEDS: Albuterol 2.5 MG/3 ML NEBULIZER IH SCH ×4 (04:26→22:49)
[2017-11-18 04:45] LABS: Hematocrit 29.8 % (37.5-50.1); Hemoglobin 8.9 g/dL (12.9-16.9); Immature Granulocytes % 0.7 % (0-4); Lymphocytes # 0.4 K/mcL (0.6-4.6); Lymphocytes % 3.4 %; Mean Corpuscular HGB Conc 29.9 g/dL (31.6-35.5); Mean Corpuscular Hemoglobin 26.3 pg (28.0-33.3); Mean Corpuscular Volume 87.9 fL (83.0-100.0); Mean Platelet Volume 9.8 fL (9.4-12.4); Monocytes # 0.3 K/mcL (0.0-1.3); Monocytes % 2.8 %; Platelet Count 208 K/mcL (140-400); Red Blood Count 3.39 M/mcL (4.19-5.50); Red Cell Distribution Width 13.6 % (11.5-14.5); Segmented Neutrophils % 93.1 %
[2017-11-18 04:50] LABS: Neutrophils # 11.3 K/mcL (1.6-8.9)
[2017-11-18 05:08] LABS: BUN/Creatinine Ratio 51 (6-26); Blood Urea Nitrogen 41 mg/dL (8-23); Calcium 9.5 mg/dL (8.6-10.3); Carbon Dioxide 29 mEq/L (23-29); Chloride 103 mEq/L (98-107); Glucose 145 mg/dL (70-105); Osmolality,Calculated 307 (280-300); Potassium 4.2 mEq/L (3.5-5.1); Sodium 142 mEq/L (136-145); eGFR For African Americans > 60 (> 60); eGFR For Non-African Americans > 60 (> 60)
[2017-11-18] MEDS: *HR* Enoxaparin 40 MG/0.4 ML SYRINGE SQ SCH (05:28)
[2017-11-18] MEDS: Venlafaxine XR (24 HR) 150 MG CAP.ER.24H PO SCH (08:30)
[2017-11-18] MEDS: Diltiazem CD (24hr) 180 MG CAPSULE PO SCH (08:31)
[2017-11-18] MEDS: Levofloxacin 750 MG/150 ML 750 MG/150 ML BAG IVPB SCH (08:31)
[2017-11-18] MEDS: Furosemide 20 MG TABLET PO SCH (08:31)
--- NOTE | 2017-11-18 09:56 | Internal Med Progress Note ---
<Josefina Oconnor-Dasha - Last Filed: 11/18/17 11:52> Date of Encounter: 11/18/17 Time of Encounter: 09:20 - Assessment and plan (1) Sepsis Current Visit: Yes Status: Acute Assessment and plan: The patient meets sepsis criteria with elevated white blood count at 14.2, tachycardia, fever, tachypnea, and possible community-acquired pneumonia on admission. Sepsis most likely secondary to community-acquired pneumonia worsened with acute exacerbation of COPD. Respiratory panel was negative for flu. Blood cultures 2 preliminary report is negative. Initial lactic acid is 1.5. Troponin negative. Chest x-ray reads minimally increased left basilar opacity. Labs today show white blood count at 12.1 is likely secondary to steroid use. Patient is afebrile, in no acute distress, and is not tachycardic on my exam today. 1. Continue to monitor the patient closely. 2. Continue day 3 of IV Levaquin. 3. Final blood cultures readings are pending. Preliminary read negative blood culture times 2. Qualifiers: Sepsis type: sepsis due to unspecified organism Qualified Code(s): A41.9 - Sepsis, unspecified organism (2) Community acquired pneumonia Current Visit: Yes Status: Acute Assessment and plan: Patient is afebrile and appears in no acute distress. Patient admits shortness of breath with productive cough. Patient oxygen saturation 94% on 4 L of nasal cannula. White blood count is 12.1 today. Chest x-ray read minimally increased left basilar opacity. 1. Continue patient on day 3 IV Levaquin. 2. Continue duo nebs. 3. Final blood cultures are pending Qualifiers: Laterality: left Lung location: lower lobe of lung Qualified Code(s): J18.1 - Lobar pneumonia, unspecified organism (3) Acute exacerbation of chronic obstructive airways disease Current Visit: Yes Status: Acute Assessment and plan: Acute exacerbation of COPD most likely secondary to pneumonia. Pulmonology is consulted. Patient has a history of severe COPD dependent on home oxygen at 4 L. Patient follows with . 1. Continue day 2 of IV Levaquin. 2. Continue Mucinex. 3. Continue duo nebs. 4. Final blood cultures results are pending. 5. Incentive spirometer. 6. Maintain oxygen saturation at 88-92%. Supplemental oxygen as needed. 7. Continue home respiratory medications. Hold Spiriva 8. Will decrease methylprednisone 60 mg Q8hr daily to 60 mg Q 12 daily. Pulmonology recommended prolonged steroid taper over 14 days on discharge. (4) Chronic anemia Current Visit: Yes Status: Acute Assessment and plan: History of chronic anemia. Hemoglobin baseline approximately 10.4. Hemoglobin today is 8.9. Patient is asymptomatic at this time. Will order iron profile and ferritin to further evaluate. Continue to monitor the patient closely. (5) CAD (coronary artery disease) Current Visit: Yes Status: Acute Assessment and plan: Patient denies any chest pain or chest pressure today. EKG showed no acute ischemic changes for any significant changes from previous EKG. Troponins are negative. Most recent echo is in March 2017 which showed ejection fraction at 45-50% with mild left ventricular and diastolic dysfunction. Continue home medications. Qualifiers: Coronary Disease-Associated Artery/Lesion type: [place] artery [place] vs. transplanted heart: [place] heart Associated angina: without angina Qualified Code(s): I25.10 - Atherosclerotic heart disease of [place] coronary artery without angina pectoris - Time Spent With Patient 25 - 35 minutes - Subjective Interval history: The patient was seen and evaluated at bedside this morning. The patient is awake, alert, interactive, afebrile, and appears in no acute distress. Patient states that he feels a lot better compared to yesterday. He admits shortness of breath that is worsened with exertion. Today, he states his shortness of breath is returning to his baseline shortness of breath. The patient admits he still has a productive cough but denies any chest pressure or chest pain today. The patient admitted he feels mildly wheezy today. Patient denies any fever, headaches, vision changes, chest pain, difficulty breathing, abdominal pain, diarrhea, constipation, nausea and vomiting, difficulty urinating, blood in his stool, numbness and tingling, or any weaknesses. The patient states he is ready to return home tomorrow. The patient has no other concerns at this time. - Constitutional Vitals: Temp Pulse Resp BP Pulse Ox 98.0 F 105 17 132/74 98 11/18/17 07:07 11/18/17 07:07 11/18/17 07:07 11/18/17 07:35 11/18/17 07:51 General appearance: Present: cooperative, A&O X 3, no acute distress - Head Head exam: Present: atraumatic, normocephalic - Eye Eye exam: Present: EOMI, PERRL, conjuntiva pink, sclera anicteric - ENT ENT exam: Present: mucous membranes moist - Neck Neck exam general surgery: Present: supple, trachea midline. Absent: lymphadenopathy, tenderness - Respiratory Respiratory exam: Present: decreased breath sounds, wheezes. Absent: rhonchi, stridor, tachypnea Additional comments: Cough was present on the exam. Diffuse wheezes throughout all lung young - Expanded Respiratory Exam Location: wheezes: Left, Right, Lower - Cardiovascular Cardiovascular exam: Present: RRR, +S1, +S2. Absent: diastolic murmur, gallop, rubs, systolic murmur - GI/Abdominal GI/Abdominal exam: Present: normal bowel sounds, soft, no peritoneal signs. Absent: distended, firm, guarding, tenderness - Extremities Exam Extremities exam: Present: warm, radial pulses palpable and symmetrical. Absent : calf tenderness, cyanotic, pedal edema - Neurological Exam Neurological exam: Present: CN II-XII intact, oriented X3, no focal deficits. Absent: pronater drift, facial droop, speech deficit - Skin Skin exam: Present: dry, intact Internal Medicine: Result - Labs CBC & Chem 7: 11/18/17 04:17 11/18/17 04:17 Labs: Short CBC 11/18/17 Range/Units 04:17 WBC 12.1 H D (4.3-11.1) K/mcL Hgb 8.9 L (12.9-16.9) g/dL Hct 29.8 L (37.5-50.1) % Plt Count 208 (140-400) K/mcL Neutrophils # 11.3 H (1.6-8.9) K/mcL BMP 11/18/17 04:17 Sodium 142 Potassium 4.2 Chloride 103 Carbon Dioxide 29 BUN 41 H Creatinine 0.81 Glucose 145 H Calcium 9.5 Consult Discharge Plan - Plan Referrals: Morris Hudson DO [Primary Care Provider] - (Web request sent due to no answer) <Sam Dukes - Last Filed: 11/18/17 17:10> Date of Encounter: 11/18/17 - Assessment and plan (1) Acute exacerbation of chronic obstructive airways disease Current Visit: Yes Status: Acute (2) Sepsis Current Visit: Yes Status: Resolved Qualifiers: Sepsis type: sepsis due to unspecified organism Qualified Code(s): A41.9 - Sepsis, unspecified organism (3) Pneumonia Current Visit: Yes Status: Suspected Qualifiers: Pneumonia type: due to Pneumococcus Laterality: left Lung location: lower lobe of lung Qualified Code(s): J13 - Pneumonia due to Streptococcus pneumoniae (4) Chronic respiratory failure Current Visit: No Status: Chronic Qualifiers: Respiratory failure complication: hypoxia Qualified Code(s): J96.11 - Chronic respiratory failure with hypoxia (5) CAD (coronary artery disease) Current Visit: Yes Status: Chronic Qualifiers: Coronary Disease-Associated Artery/Lesion type: [place] artery [place] vs. transplanted heart: [place] heart Associated angina: without angina Qualified Code(s): I25.10 - Atherosclerotic heart disease of [place] coronary artery without angina pectoris (6) Congestive heart failure Current Visit: No Status: Chronic Qualifiers: Qualified Code(s): I50.22 - Chronic systolic (congestive) heart failure - Constitutional Vitals: Temp Pulse Resp BP Pulse Ox 99.5 F 91 16 132/67 97 11/18/17 15:27 11/18/17 15:27 11/18/17 16:05 11/18/17 15:27 11/18/17 16:05 Internal Medicine: Result - Labs CBC & Chem 7: 11/18/17 04:17 11/18/17 04:17 Labs: Short CBC 11/18/17 Range/Units 04:17 WBC 12.1 H D (4.3-11.1) K/mcL Hgb 8.9 L (12.9-16.9) g/dL Hct 29.8 L (37.5-50.1) % Plt Count 208 (140-400) K/mcL Neutrophils # 11.3 H (1.6-8.9) K/mcL BMP 11/18/17 04:17 Sodium 142 Potassium 4.2 Chloride 103 Carbon Dioxide 29 BUN 41 H Creatinine 0.81 Glucose 145 H Calcium 9.5 - Attending Attestation I examined this patient and my medical decision-making was reviewed with the Resident Physician on 11/18/17. I agree with the documented findings, disposition and treatment plan as described except to the extent set forth below. Mr Bess is currently admitted for acute exac COPD. He remains moderate to high risk due to potential for worsening respiratory status. Mr. Bess is continuing to slowly improve but not near baseline yet. He overall is less dyspneic but still wheezing and coughing. No fever. No GI issues. Exam alert. Comfortable up in chair. Heart reg Diffuse end exp wheeze but better air movement than yesterday Abd soft I/P 1. Exac COPD 2. PNA Further diagnoses and plan as above. Anticipate discharge tomorrow.
[2017-11-18] MEDS: Budesonide Neb 0.25 MG/2 ML IH SCH ×2 (10:46→22:49)
[2017-11-19] MEDS: Albuterol 2.5 MG/3 ML NEBULIZER IH SCH ×2 (03:57→09:55)
[2017-11-19 05:40] LABS: % Iron Saturation 9 % (20-55); BUN/Creatinine Ratio 55 (6-26); Blood Urea Nitrogen 42 mg/dL (8-23); Calcium 9.1 mg/dL (8.6-10.3); Carbon Dioxide 33 mEq/L (23-29); Chloride 103 mEq/L (98-107); Ferritin 35 ng/ml (20-250); Glucose 140 mg/dL (70-105); Iron 34 mcg/dL (65-175); Osmolality,Calculated 305 (280-300); Potassium 4.1 mEq/L (3.5-5.1); Sodium 141 mEq/L (136-145); Transferrin 270 mg/dL (203-362); eGFR For African Americans > 60 (> 60); eGFR For Non-African Americans > 60 (> 60)
[2017-11-19 05:43] LABS: Basophils % 0.1 %; Hematocrit 29.9 % (37.5-50.1); Immature Granulocytes % 1.2 % (0-4); Lymphocytes # 0.5 K/mcL (0.6-4.6); Lymphocytes % 5.3 %; Mean Corpuscular HGB Conc 30.1 g/dL (31.6-35.5); Mean Corpuscular Hemoglobin 26.6 pg (28.0-33.3); Mean Corpuscular Volume 88.5 fL (83.0-100.0); Monocytes # 0.3 K/mcL (0.0-1.3); Monocytes % 3.4 %; Neutrophils # 8.8 K/mcL (1.6-8.9); Nucleated Red Blood Cells 0.3 /100 WBC (0); Platelet Count 213 K/mcL (140-400); Red Blood Count 3.38 M/mcL (4.19-5.50); Red Cell Distribution Width 13.5 % (11.5-14.5)
[2017-11-19] MEDS: methylPREDNISolone 125 MG/2 ML VIAL IVP SCH (06:26)
[2017-11-19] MEDS: *HR* Enoxaparin 40 MG/0.4 ML SYRINGE SQ SCH (06:26)
[2017-11-19 06:50] VITALS: BP 120/72
[2017-11-19] MEDS ORDERED: levoFLOXacin 750 MG TABLET PO SCH (09:15)
--- NOTE | 2017-11-19 09:20 | Discharge Summary ---
<Den Oconnor - Last Filed: 11/19/17 09:02> Date of Encounter: 11/19/17 Time of Encounter: 08:30 - Discharge Diagnosis (1) Sepsis Priority: Primary Status: Resolved Qualifiers: Sepsis type: sepsis due to unspecified organism Qualified Code(s): A41.9 - Sepsis, unspecified organism (2) Community acquired pneumonia Priority: Primary Status: Acute Qualifiers: Laterality: left Lung location: lower lobe of lung Qualified Code(s): J18.1 - Lobar pneumonia, unspecified organism (3) Acute exacerbation of chronic obstructive airways disease Priority: Primary Status: Acute (4) Chronic anemia Priority: Secondary Status: Acute (5) CAD (coronary artery disease) Priority: Secondary Status: Chronic Qualifiers: Coronary Disease-Associated Artery/Lesion type: [place] artery [place] vs. transplanted heart: [place] heart Associated angina: without angina Qualified Code(s): I25.10 - Atherosclerotic heart disease of [place] coronary artery without angina pectoris Hospital course: Mr. Bess is a 67 year old male who was admitted for sepsis most likely secondary to pneumonia and acute hypoxic respiratory failure secondary to acute exacerbation of COPD. Patient with a past medical history of COPD status post bilateral lobectomy for emphysema dependent on 4-5L of home oxygen, HLD, CAD, and anxiety presented to the ED complaining of shortness of breath and productive cough for 2 days. Patient states that he began coughing up "creamy" sputum prior to admission and it would continue to keep the patient up all night due to shortness of breath pain bilaterally in his ribs and increased chest pressure. Patient states that he is on home oxygen 4 to 5L for the last 4 years and has been hospitalized three times in the past year for breathing problems. Patient's burial vault deliverer and installer is Dr. Cortez. Patient admits he has been out of Daliresp 500mg tablets for 1 month. In the ED, the patient met sepsis criteria with fever of 100.4, tachycardia, tachypnea, elevated white blood count , and suspected source of infection in the lungs. Chest xray reports reads minimally increased left basilar opacity, likely pneumonia with clinical presentation versus atelelactasis. EKG showed left bundle branch block only with no change. He was given 1 dose of Levaquin, methylprednisone, and duo nebs in the ED. Per documentation, last Echo 04/13 showed EF 45-50%, mild LV and diastolic dysfunction. Atypical septum motion consistent with LBBB. EKG showed left bundle branch block with no acute ischemic changes. He was given 1 dose of Levaquin, methylprednisone, and duo nebs. Pulmonology was consulted and evaluated the patient. Patient continue to clinically improve on Levaquin, DUONEBS, steroids, BiPAP at night, and oxygen supplementation. Patient breathing returned to his baseline with 4L of oxygen with 94-98% oxygen saturation. It was recommended that the patient follows up with his PCP within one week and his burial vault deliverer and installer within 2-3 weeks after discharge. Patient to be continued on antibiotics and steroid taper for 12 more days. Patient agrees with treatment plan. Patient verbalized understanding and has no other concerns at this time. - Time Spent with Patient Total time spent providing and/or coordinating discharge services: Greater than 30 minutes - Discharge Medications Prescriptions: levoFLOXacin [Levaquin] 750 mg PO DAILY #3 tablet predniSONE [PredniSONE] 10 mg PO DAILY #33 tablet Home Medications: Albuterol Neb [Proventil Neb] 2.5 mg IH TID PRN 05/09/15 [History] Albuterol Sulfate [Albuterol Inhaler] 2 puff IH Q4HR PRN 05/09/15 [History] Arformoterol Tartrate [Brovana] 15 mcg IH BID 05/09/15 [History] Atorvastatin Calcium [Lipitor] 40 mg PO HS 05/09/15 [History] Budesonide Neb [Pulmicort Neb] 0.25 mg IH BID 05/09/15 [History] Docusate Sodium [Dulcolax Stool Softener] 100 mg PO HS 05/09/15 [History] Oxygen 3 l NS AD 05/09/15 [History] Pantoprazole Sodium [Protonix] 40 mg PO QAM 05/09/15 [History] Polyethylene Glycol 3350 [MiraLAX] 17 gm PO DAILY PRN 05/09/15 [History] Tiotropium [Spiriva] 18 mcg IH QAM 05/09/15 [History] Travoprost [Travatan Z] 1 drop OP HS 05/09/15 [History] Furosemide [Lasix] 20 mg PO DAILY 09/21/16 [History] Potassium Chloride [K-Tab ER] 10 meq PO DAILY 12/25/16 [History] Venlafaxine HCl [Venlafaxine HCl ER] 150 mg PO QAM 09/21/16 [History] Diltiazem HCl [Diltiazem 24Hr Cd] 180 mg PO DAILY 03/31/17 [History] Nitroglycerin [Nitrostat] 0.4 mg SL Q5M PRN 03/31/17 [History] Oxycodone HCl/Acetaminophen [Percocet 5-325 mg Tablet] 1 - 2 each PO Q6H PRN 01/12 [History] Roflumilast [Daliresp] 500 mcg PO DAILY 03/31/17 [History] levoFLOXacin [Levaquin] 750 mg PO DAILY #3 tablet 11/19/17 [Rx] predniSONE [PredniSONE] 10 mg PO DAILY #33 tablet 11/19/17 [Rx] Allergies/Adverse Reactions: 3 Allergy/AdvReac Type Severity Reaction Status Date / Time hydrocodone [From Vicodin] Allergy Mild Rash Verified 11/16/17 09:37 Penicillins [PCN] Allergy Mild Rash Verified 11/16/17 09:37 Date of admission: 11/16/17 18:24 Primary care physician: Cale Malagon Discharging clinician: Den Oconnor Anticipated date of discharge: 11/19/17 - Constitutional Vitals: Temp Pulse Resp BP Pulse Ox 98.1 F 93 18 120/72 100 11/19/17 06:47 11/19/17 06:47 11/19/17 06:47 11/19/17 06:47 11/19/17 06:47 General appearance: Present: cooperative, A&O X 3, no acute distress - Head Head exam: Present: atraumatic, normocephalic - Eye Eye exam: Present: EOMI, PERRL, conjuntiva pink, sclera anicteric - ENT ENT exam: Present: mucous membranes moist - Neck Neck exam general surgery: Present: supple, trachea midline. Absent: lymphadenopathy, tenderness - Respiratory Respiratory exam: Present: decreased breath sounds, wheezes. Absent: accessory muscle use, respiratory distress, rhonchi, stridor, tachypnea Additional comments: cough present on exam. Diffuse wheezes present on all lung young. improved compared to yesterday - Expanded Respiratory Exam Location: decreased breath sounds: Left, Right, Upper, wheezes: Left, Right, Upper, Lower - Cardiovascular Cardiovascular exam: Present: RRR, +S1, +S2. Absent: diastolic murmur, gallop, rubs, systolic murmur - GI/Abdominal GI/Abdominal exam: Present: normal bowel sounds, soft, no peritoneal signs. Absent: distended, tenderness - Extremities Exam Extremities exam: Present: warm, radial pulses palpable and symmetrical. Absent : calf tenderness, cyanotic, pedal edema - Neurological Exam Neurological exam: Present: CN II-XII intact, oriented X3, no focal deficits. Absent: pronater drift, facial droop, speech deficit - Skin Skin exam: Present: dry, intact - Patient Status Disposition: Home, Self-Care Condition: Fair Functional capacity at discharge: independent ambulation Overall status at discharge: patient is progressing back to baseline - Discharge Instructions Instructions: Prednisone (By mouth), Levofloxacin (By mouth) Follow Up With: Morris Hudson DO [Primary Care Provider] - (Web request sent due to no answer) Lizeth Cortez MD [Partnered Physician] - Additional Instructions: 1. Please follow up with your primary care physician within one week. 2. Please continue all of your home medications as prescribed. 3. Please take your steroids and antibiotics as prescribed. Taper you steroids as instructed. 4. Please follow up with your burial vault deliverer and installer within 2-3 weeks. 5. Please wear your home oxygen at all times. 6. Please return to the hospital for new or worsening symptoms. - Diet and Activity Activity: increase activity as tolerated, wear oxygen at all times Diet: advance to your usual diet <Sam Dukes - Last Filed: 11/19/17 19:42> Date of Encounter: 11/19/17 - Discharge Diagnosis (1) Acute exacerbation of chronic obstructive airways disease Priority: Primary Status: Acute (2) Sepsis Status: Resolved Qualifiers: Sepsis type: sepsis due to unspecified organism Qualified Code(s): A41.9 - Sepsis, unspecified organism (3) Pneumonia Priority: Primary Status: Suspected Qualifiers: Pneumonia type: due to Pneumococcus Laterality: left Lung location: lower lobe of lung Qualified Code(s): J13 - Pneumonia due to Streptococcus pneumoniae (4) Chronic respiratory failure Priority: Secondary Status: Chronic Qualifiers: Respiratory failure complication: hypoxia Qualified Code(s): J96.11 - Chronic respiratory failure with hypoxia (5) CAD (coronary artery disease) Status: Chronic Qualifiers: Coronary Disease-Associated Artery/Lesion type: [place] artery [place] vs. transplanted heart: [place] heart Associated angina: without angina Qualified Code(s): I25.10 - Atherosclerotic heart disease of [place] coronary artery without angina pectoris (6) Congestive heart failure Priority: Secondary Status: Chronic Qualifiers: Qualified Code(s): I50.22 - Chronic systolic (congestive) heart failure Hospital course: Mr. Bess is a 67 year old male - Time Spent with Patient Total time spent providing and/or coordinating discharge services: 38min Date of admission: 11/16/17 18:24 Primary care physician: Cale Malagon - Constitutional Vitals: Temp Pulse Resp BP Pulse Ox 98.1 F 93 18 120/72 100 11/19/17 06:47 11/19/17 06:47 11/19/17 09:55 11/19/17 06:47 11/19/17 09:55 - Attending Attestation I examined this patient and my medical decision-making was reviewed with the Resident Physician on 11/19/17. I agree with the documented findings, disposition and treatment plan as described except to the extent set forth below. Mr Bess has been admitted for acute exac COPD. He is near baseline and feels ready for discharge home. He is afebrile with stable vitals. Exam Alert Comfortable Mucus membranes dry Heart reg No wheeze Plan D/C home today.
[2017-11-19] MEDS: Budesonide Neb 0.25 MG/2 ML IH SCH (09:55)
[2017-11-19] MEDS: Diltiazem CD (24hr) 180 MG CAPSULE PO SCH (10:11)
[2017-11-19] MEDS: Venlafaxine XR (24 HR) 150 MG CAP.ER.24H PO SCH (10:11)
[2017-11-19] MEDS: Furosemide 20 MG TABLET PO SCH (10:11)
--- NOTE | 2017-11-19 20:10 | Electrocardiograph Report ---
[place] [id number] Test Date: 2017-11-17 Pat Name: Ney Bess Department: 112 Room: 2A44 Gender: M Outpatient Interviewing Clerk: : [id number] Requested By: Dne Oconnor Order Number: [id number] Reading MD: Arelis Butler Measurements Intervals [place] Rate: 94 P: 64 SC: 160 QRS: 43 QRSD: 163 T: 161 QT: 398 QTc: 449 Interpretive Statements SINUS RHYTHM LEFT BUNDLE BRANCH BLOCK Electronically Signed On 11-19-2017 20:08:53 EST by Arelis Butler
--- NOTE | 2017-11-23 11:57 | Physician Discharge Referral ---
Home Health/Hosp Referral Info Transfer to: Home Health Provider in Charge Post Discharge: PCP - Diagnosis (1) Acute exacerbation of chronic obstructive airways disease Priority: Primary Status: Acute (2) Sepsis Priority: Primary Status: Resolved (3) Pneumonia Priority: Primary Status: Suspected (4) Chronic respiratory failure Priority: Secondary Status: Chronic (5) CAD (coronary artery disease) Priority: Secondary Status: Chronic (6) Congestive heart failure Priority: Secondary Status: Chronic - Respiratory Orders Oxygen / L per min (To keep sat greater than %) Smoking Cessation: Smoking cessation has been advised. For more information, call the [place] Tobacco Quit Line at 7-674-YXBT-NOW. - Diet/Nutrition Diet/Nutrition Orders: No Added Salt (DANDY) - Activity Activity Orders: Up ad francis - Services Needed Following services are medically necessary services: Nursing, Physical Therapy, Occupational Therapy - Transfer Medications Prescriptions: levoFLOXacin [Levaquin] 750 mg PO DAILY #3 tablet predniSONE [PredniSONE] 10 mg PO DAILY #33 tablet Home Medications: Albuterol Neb [Proventil Neb] 2.5 mg IH TID PRN 05/09/15 [History] Albuterol Sulfate [Albuterol Inhaler] 2 puff IH Q4HR PRN 05/09/15 [History] Arformoterol Tartrate [Brovana] 15 mcg IH BID 05/09/15 [History] Atorvastatin Calcium [Lipitor] 40 mg PO HS 05/09/15 [History] Budesonide Neb [Pulmicort Neb] 0.25 mg IH BID 05/09/15 [History] Docusate Sodium [Dulcolax Stool Softener] 100 mg PO HS 05/09/15 [History] Oxygen 3 l NS AD 05/09/15 [History] Pantoprazole Sodium [Protonix] 40 mg PO QAM 05/09/15 [History] Polyethylene Glycol 3350 [MiraLAX] 17 gm PO DAILY PRN 05/09/15 [History] Tiotropium [Spiriva] 18 mcg IH QAM 05/09/15 [History] Travoprost [Travatan Z] 1 drop OP HS 05/09/15 [History] Furosemide [Lasix] 20 mg PO DAILY 09/21/16 [History] Potassium Chloride [K-Tab ER] 10 meq PO DAILY 09/21/16 [History] Venlafaxine HCl [Venlafaxine HCl ER] 150 mg PO QAM 09/21/16 [History] Diltiazem HCl [Diltiazem 24Hr Cd] 180 mg PO DAILY 03/31/17 [History] Nitroglycerin [Nitrostat] 0.4 mg SL Q5M PRN 03/31/17 [History] Oxycodone HCl/Acetaminophen [Percocet 5-325 mg Tablet] 1 - 2 each PO Q6H PRN 01/12 [History] Roflumilast [Daliresp] 500 mcg PO DAILY 03/31/17 [History] levoFLOXacin [Levaquin] 750 mg PO DAILY #3 tablet 11/19/17 [Rx] predniSONE [PredniSONE] 10 mg PO DAILY #33 tablet 11/19/17 [Rx] Allergies/Adverse Reactions: 3 Allergy/AdvReac Type Severity Reaction Status Date / Time hydrocodone [From Vicodin] Allergy Mild Rash Verified 11/16/17 09:37 Penicillins [PCN] Allergy Mild Rash Verified 11/16/17 09:37 Certification: Further, I certify that my clinical findings support that this patient is homebound (i.e. absences from home require considerable and taxing effort and are for medical reasons or sabianism services or infrequently or short duration when for other reasons) because: Homebound Reason: Patient requires assistance of a person or device to safely leave home, Severity of cardiac or pulmonary status limits activity tolerance Attestation: My signature below is to certify that this patient is under my care and that I, or nurse practitioner, or a physician's secretary administrative assistant working with me, has a face-to -face encounter with this patient.
== END 2017-11-19 10:45 | disposition home or self-care (01) | DRG 871 ==
LOC: 2ANU 06:56 → EMEROO 06:56 → 2ANU 09:20 → SUATTDRO 18:24
PROVIDERS: ADMIT Internal Medicine; ATTEND Internal Medicine

== ENCOUNTER 2018-01-31 21:28 | Inpatient (IN) ==
[2018-01-31] MEDS ORDERED: Ipratropium/Albuterol Neb 3 ML IH ONE ×2 (21:33→21:35)
[2018-01-31] MEDS ORDERED: Levofloxacin 500 MG/100 ML 500 MG/100 ML BAG IVPB ONE (21:33)
[2018-01-31] MEDS ORDERED: methylPREDNISolone 125 MG/2 ML VIAL IVP ONE (21:33)
[2018-01-31 22:09] LABS: Basophils % 0.6 %; Eosinophils # 0.2 K/mcL (0.0-0.6); Eosinophils % 2.2 %; Hematocrit 30.9 % (37.5-50.1); Hemoglobin 9.4 g/dL (12.9-16.9); Immature Granulocytes % 0.4 % (0-4); Lymphocytes # 0.7 K/mcL (0.6-4.6); Lymphocytes % 9.2 %; Mean Corpuscular HGB Conc 30.4 g/dL (31.6-35.5); Mean Corpuscular Hemoglobin 25.8 pg (28.0-33.3); Mean Corpuscular Volume 84.9 fL (83.0-100.0); Mean Platelet Volume 8.8 fL (9.4-12.4); Monocytes # 0.6 K/mcL (0.0-1.3); Monocytes % 7.8 %; Neutrophils # 5.8 K/mcL (1.6-8.9); Platelet Count 286 K/mcL (140-400); Red Blood Count 3.64 M/mcL (4.19-5.50); Red Cell Distribution Width 12.6 % (11.5-14.5); Segmented Neutrophils % 79.8 %
[2018-01-31 22:30] LABS: ABG Base Excess 11 mEq/L (-2 to 3); ABG HCO3 39 mEq/L (21-27); ABG Oxygen Saturation 99 % (95-98); ABG PCO2 73 mmHg (35-45); ABG PH 7.34 pH Units (7.32-7.45); ABG PO2 166 mmHg (85-104); ABG TCO2 41 mEq/L (20-26); Blood Gas Modality BiLevel; Blood Gas PEEP 6 cm H2O
[2018-01-31 22:31] LABS: BUN/Creatinine Ratio 15 (6-26); Blood Urea Nitrogen 16 mg/dL (8-23); Calcium 9.2 mg/dL (8.6-10.3); Carbon Dioxide 36 mEq/L (23-29); Chloride 99 mEq/L (98-107); Glucose 118 mg/dL (70-105); Osmolality,Calculated 294 (280-300); Potassium 3.6 mEq/L (3.5-5.1); Sodium 141 mEq/L (136-145); Troponin I < 0.03 ng/mL (< 0.04); eGFR For African Americans > 60 (> 60); eGFR For Non-African Americans > 60 (> 60)
--- NOTE | 2018-01-31 23:16 | Emergency Department Note ---
Disposition Clinical Impression: Acute exacerbation of chronic obstructive airways disease, Chronic anemia, Acute on chronic respiratory failure with hypoxia and hypercapnia Disposition: Admitted As Inpatient Condition: Fair Time of Disposition: 23:27 SOB HPI - General Chief Complaint: ED Shortness of Breath/Dyspnea Time Seen by Provider: 01/31/18 21:29 Source: patient Limitations: other Nursing Notes Reviewed: Yes Vital Signs Reviewed: Yes - History of Present Illness Patient is a 67-year-old male who presents to air and see ED with a chief complaint of difficulty breathing. States it has been worsening over the last several days. states he has been doing about 5 breathing treatments a day and still not improving. He sees hose stripper Dr. Cortez. Denies any nausea , vomiting, fever or chills. No chest pain. No worse cough than usual. No abdominal pain, problems with urination or bowel movements. Patient has had prior lung reduction surgery and has plates across his chest. states that he is not able to have chest compressions because of this. Patient is on 3.5 L nasal cannula at home and has BiPAP for nighttime though he is only semi- compliant with this and takes it off it it does not feel right. Pt Subjective Complaint: shortness of breath Onset (ago): day(s) (4) Severity: severe Consistency/Duration: gradually worsening Improves with: nothing, rest Worsens with: nothing Known history of: COPD Associated symptoms: Denies: chest pain, fever, cough, wheezing Treatment prior to arrival: none Cough present: No - Related Data Home oxygen amount: 3 liters Home Medications Medication Instructions Recorded Confirmed Albuterol Neb [Proventil Neb] 2.5 mg IH TID PRN 05/09/15 02/01/18 Albuterol Sulfate [Albuterol 2 puff IH Q4HR PRN 05/09/15 02/01/18 Inhaler] Arformoterol Tartrate [Brovana] 15 mcg IH BID 05/09/15 02/01/18 Atorvastatin Calcium [Lipitor] 40 mg PO HS 05/09/15 02/01/18 Budesonide Neb [Pulmicort Neb] 0.25 mg IH BID 05/09/15 02/01/18 Docusate Sodium [Dulcolax Stool 100 mg PO HS 05/09/15 02/01/18 Softener] Oxygen 3 l NS AD 05/09/15 02/01/18 Pantoprazole Sodium [Protonix] 40 mg PO QAM 05/09/15 02/01/18 Polyethylene Glycol 3350 [MiraLAX] 17 gm PO DAILY PRN 05/09/15 02/01/18 Tiotropium [Spiriva] 18 mcg IH QAM 05/09/15 02/01/18 Travoprost [Travatan Z] 1 drop OP HS 05/09/15 02/01/18 Furosemide [Lasix] 20 mg PO DAILY 09/21/16 02/01/18 Potassium Chloride [K-Tab ER] 10 meq PO DAILY 09/21/16 02/01/18 Venlafaxine HCl [Venlafaxine HCl 150 mg PO QAM 09/21/16 02/01/18 ER] Diltiazem HCl [Diltiazem 24Hr Cd] 180 mg PO DAILY 03/31/17 02/01/18 Nitroglycerin [Nitrostat] 0.4 mg SL Q5M PRN 03/31/17 02/01/18 Oxycodone HCl/Acetaminophen 1 - 2 each PO Q6H PRN 03/31/17 02/01/18 [Percocet 5-325 mg Tablet] Roflumilast [Daliresp] 500 mcg PO DAILY 03/31/17 02/01/18 Allergies Allergy/AdvReac Type Severity Reaction Status Date / Time hydrocodone [From Vicodin] Allergy Mild Rash Verified 02/01/18 00:27 Penicillins [PCN] Allergy Mild Rash Verified 02/01/18 00:27 All systems ED: reviewed and negative except as stated. Past Medical History - Past Medical History Attestation: Yes The following information was validated with the patient. Source: patient Medical history: Reports: arthritis, asthma, cancer, COPD, GERD, glaucoma, hyperlipidemia, valvular heart disease, other Surgical history: Reports: herniorrhaphy, orthopedic, other, sinus surgery, other Psychiatric history: Reports: anxiety, PTSD - Social History Smoking Status: Former smoker Smokeless Tobacco Status: No Alcohol use: Reports: none Drug use: Reports: none Physical Exam - General Limitations: other General appearance: alert - Head Head exam: atraumatic, normocephalic, normal inspection - Eye Eye exam: Present: normal appearance, EOMI - ENT ENT exam: normal exam, normal oropharynx, mucous membranes moist - Neck Neck exam: Present: normal inspection, full ROM, trachea midline - Chest Chest inspection: Present: normal inspection, symmetric chest wall rise - Respiratory Respiratory exam: Present: wheezes (diffusely) - Cardiovascular Cardiovascular exam: Present: normal rhythm, tachycardia - Abdominal Exam Abdominal exam: Present: soft, Non-Tender. Absent: tenderness, distention, guarding, rebound, rigidity - Extremities Exam Extremities exam: Present: normal inspection, full ROM. Absent: tenderness, pedal edema - Back Exam Back exam: Present: normal inspection, full ROM. Absent: tenderness - Neurological Exam Neurological exam: Present: alert, oriented X3 - Psychiatric Psychiatric exam: Present: normal affect, normal mood - Skin Skin exam: Present: warm, dry, intact, normal color Course Course Narrative: Patient seen and examined. Difficulty breathing over the last several days. History of COPD. Cardiopulmonary workup initiated. A triple DuoNeb and solumedrol ordered. Respiratory was called immediately due to patient's work of breathing and patient was placed on BiPAP. Patient likely having a COPD exacerbation. Also covered for possible pneumonia with Levaquin. - Reevaluation(s) Reevaluation #1: Labwork shows ABG with elevated CO2. Otherwise unremarkable. We will admit for COPD exacerbation. Chest x-ray unremarkable. I discussed with hospitalist who has accepted patient for admission. Time: 23:25 Vital Signs Temperature 98.4 F 01/31/18 21:37 Pulse Rate 110 01/31/18 21:37 Respiratory Rate 31 01/31/18 21:37 Blood Pressure 186/87 01/31/18 21:37 O2 Sat by Pulse Oximetry 100 01/31/18 21:37 Temperature 98 F 02/01/18 05:04 Pulse Rate 99 02/01/18 05:04 Respiratory Rate 17 02/01/18 05:04 Blood Pressure 107/60 02/01/18 05:04 O2 Sat by Pulse Oximetry 95 02/01/18 05:04 Oxygen Delivery Oxygen Delivery Bipap Shortness of Breath/Dyspnea - Medical Records Medical records reviewed: Yes I reviewed the patient's medical records. - Lab Data Lab results reviewed: Yes I reviewed the patient's lab results. Result diagrams: 01/31/18 21:50 01/31/18 21:50 Lab Results 01/31/18 01/31/18 01/31/18 Range/Units 21:50 21:50 21:50 WBC 7.3 (4.3-11.1) K/mcL RBC 3.64 L (4.19-5.50) M/mcL Hgb 9.4 L (12.9-16.9) g/dL Hct 30.9 L (37.5-50.1) % MCV 84.9 (83.0-100.0) fL MCH 25.8 L (28.0-33.3) pg MCHC 30.4 L (31.6-35.5) g/dL RDW 12.6 (11.5-14.5) % Plt Count 286 (140-400) K/mcL MPV 8.8 L (9.4-12.4) fL Immature Gran % 0.4 (0-4) % Seg Neutrophils % 79.8 % Lymphocytes % 9.2 % Monocytes % 7.8 % Eosinophils % 2.2 % Basophils % 0.6 % Neutrophils # 5.8 (1.6-8.9) K/mcL Lymphocytes # 0.7 (0.6-4.6) K/mcL Monocytes # 0.6 (0.0-1.3) K/mcL Eosinophils # 0.2 (0.0-0.6) K/mcL Basophils # 0.0 (0.0-0.2) K/mcL Sample Site ABG pH (7.32-7.45) pH Units ABG pCO2 (35-45) mmHg ABG pO2 (85-104) mmHg ABG HCO3 (21-27) mEq/L ABG Total CO2 (20-26) mEq/L ABG O2 Saturation (95-98) % ABG Base Excess (-2 to 3) mEq/L Laith Test O2 Delivery Device Blood Gas Modality Inspired O2 (1-15=lpm [id number]=%) PEEP cm H2O Sodium 141 (136-145) mEq/L Potassium 3.6 (3.5-5.1) mEq/L Chloride 99 (98-107) mEq/L Carbon Dioxide 36 H (23-29) mEq/L BUN 16 (8-23) mg/dL Creatinine 1.04 (0.70-1.30) mg/dL Est GFR ( Amer) > 60 (> 60) Est GFR (Non-Af Amer) > 60 (> 60) BUN/Creatinine Ratio 15 (6-26) Glucose 118 H (70-105) mg/dL Calculated Osmolality 294 (280-300) Lactic Acid 1.2 (0.5-2.2) mmol/L Calcium 9.2 (8.6-10.3) mg/dL Troponin I < 0.03 (< 0.04) ng/mL B-Natriuretic Peptide (Less than 100) pg/mL 01/31/18 01/31/18 Range/Units 21:50 22:19 WBC (4.3-11.1) K/mcL RBC (4.19-5.50) M/mcL Hgb (12.9-16.9) g/dL Hct (37.5-50.1) % MCV (83.0-100.0) fL MCH (28.0-33.3) pg MCHC (31.6-35.5) g/dL RDW (11.5-14.5) % Plt Count (140-400) K/mcL MPV (9.4-12.4) fL Immature Gran % (0-4) % Seg Neutrophils % % Lymphocytes % % Monocytes % % Eosinophils % % Basophils % % Neutrophils # (1.6-8.9) K/mcL Lymphocytes # (0.6-4.6) K/mcL Monocytes # (0.0-1.3) K/mcL Eosinophils # (0.0-0.6) K/mcL Basophils # (0.0-0.2) K/mcL Sample Site R Radial ABG pH 7.34 (7.32-7.45) pH Units ABG pCO2 73 H* (35-45) mmHg ABG pO2 166 H (85-104) mmHg ABG HCO3 39 H (21-27) mEq/L ABG Total CO2 41 H (20-26) mEq/L ABG O2 Saturation 99 H (95-98) % ABG Base Excess 11 H (-2 to 3) mEq/L Laith Test Positive O2 Delivery Device BiPAP Blood Gas Modality BiLevel Inspired O2 35.0 (1-15=lpm [id number]=%) PEEP 6 cm H2O Sodium (136-145) mEq/L Potassium (3.5-5.1) mEq/L Chloride (98-107) mEq/L Carbon Dioxide (23-29) mEq/L BUN (8-23) mg/dL Creatinine (0.70-1.30) mg/dL Est GFR ( Amer) (> 60) Est GFR (Non-Af Amer) (> 60) BUN/Creatinine Ratio (6-26) Glucose (70-105) mg/dL Calculated Osmolality (280-300) Lactic Acid (0.5-2.2) mmol/L Calcium (8.6-10.3) mg/dL Troponin I (< 0.04) ng/mL B-Natriuretic Peptide 146 H (Less than 100) pg/mL - Radiology Data Radiology results reviewed: Yes I reviewed the patient's radiology results. Chest X-Ray 01/31/18 21:48 IMPRESSION: No significant findings in the chest. D/ / Ernst Hurtado MD / Ernst Hurtado MD Interpreting Provider: Ernst Hurtado MD - EKG Data EKG attestation: Yes I reviewed and interpreted this EKG. EKG results narrative: EKG done at 2134 shows sinus tachycardia with a rate of [address] elevation. Mild ST depression noted in leads 2, 3, aVF, V6. Appears unchanged from prior EKG done nov 17 2017. Left bundle branch block present. Attestation Statement - Attestation Attestation: For this encounter, I have reviewed the FIELD SERVICE TECHNICIAN or PA documentation, treatment plan, and medical decision making; and I have had face to face time with this patient. Dyspnea, suspect COPD exacerbation. We will place on BiPAP and admit for further management.
[2018-02-01] MEDS ORDERED: Albuterol 2.5 MG/3 ML NEBULIZER IH PRN (02:02)
[2018-02-01] MEDS ORDERED: Acetaminophen 325 MG TABLET PO PRN (02:09)
[2018-02-01] MEDS ORDERED: Naloxone 0.4 MG/ML INJ IVP PRN (02:09)
[2018-02-01] MEDS ORDERED: Nitroglycerin 0.4 MG TAB.SUBL SL PRN (02:14)
[2018-02-01] MEDS ORDERED: *HR* OxyCODONE/APAP 5/325 TABLET PO PRN ×2 (02:14→16:03)
[2018-02-01] MEDS ORDERED: OLANZapine 10 MG TAB.RAPDIS PO SCH (02:15)
--- NOTE | 2018-02-01 02:17 | Internal Med History&Physical ---
Date of Encounter: 02/01/18 Time of Encounter: 02:17 Internal Medicine - H&P: HPI Chief complaint: Shortness of breath Admitted From: Emergency Dept Plans for Post Hospital Care: Home History of present illness: Mr. Bess is a 67 year old male with h/o- advanced COPD, was brought in by due to worsening shortness of breath. He was admitted here in 10/2017 and he never completely recovered since then. His functional status has been deteriorating. For the last 2 weeks, he has been having worsening exertional dyspnea, dry cough and wheezing. His planned to call in the morning to get him an evaluation, however he became very short of breath last night, did not improve with breathing treatments at home and called EMS. He has chest pain from coughing, along with subjective fevers and chills. Past Med Surg Social Fam HX - Past Medical History Source: patient Medical history: arthritis, atrial fibrillation, cancer, COPD, coronary artery disease, GERD, glaucoma, hyperlipidemia, valvular heart disease, other Psychiatric history: anxiety, depression, PTSD, previous psychiatric hospitalization - Past Surgical History Surgical History: herniorrhaphy, orthopedic, other (back surgery, left finger surgery), sinus surgery, other (B/L lung reduction/lobectomy) - Social History Smoking Status: Former smoker Smokeless Tobacco Status: No Alcohol use: none Drug use: none Occupational status: disabled Current living situation: Home, With Family Activity Level: Independent ambulation Recent Out of Country Travel Within the Last 8 Weeks: No Exposure or Possible Exposure to Illness During Travel: No - Family History Mother Living Status: Age at : 77 Hx Family Cancer: Yes (Rectal) Hx Family Neurologic Disorders: Yes (alzheimers) Father Living Status: Age at : 77 Cause of : emphysema Hx Family Respiratory Disorders: Yes Brother Adopted: No Family Member Ethnicity: Non- Living Status: Age at : 55 Cause of : Lung cancer Hx Family Cardiac Disorders: Yes (murmur) Hx Family Respiratory Disorders: Yes Hx Family Cancer: Yes Hx Family GI Disorders: No Hx Family Endocrine Disorder: No Hx Family Neuromuscular Disorders: No Hx Family Neurologic Disorders: No Hx Family HEENT Disorders: No Hx Family Autoimmune Disorders: No Internal Medicine - H&P: Meds Albuterol Neb [Proventil Neb] 2.5 mg IH TID PRN 05/09/15 [History] Albuterol Sulfate [Albuterol Inhaler] 2 puff IH Q4HR PRN 05/09/15 [History] Arformoterol Tartrate [Brovana] 15 mcg IH BID 05/09/15 [History] Atorvastatin Calcium [Lipitor] 40 mg PO HS 05/09/15 [History] Budesonide Neb [Pulmicort Neb] 0.25 mg IH BID 05/09/15 [History] Docusate Sodium [Dulcolax Stool Softener] 100 mg PO HS 05/09/15 [History] Oxygen 3 l NS AD 05/09/15 [History] Pantoprazole Sodium [Protonix] 40 mg PO QAM 05/09/15 [History] Polyethylene Glycol 3350 [MiraLAX] 17 gm PO DAILY PRN 05/09/15 [History] Tiotropium [Spiriva] 18 mcg IH QAM 05/09/15 [History] Travoprost [Travatan Z] 1 drop OP HS 05/09/15 [History] Furosemide [Lasix] 20 mg PO DAILY 09/21/16 [History] Potassium Chloride [K-Tab ER] 10 meq PO DAILY 09/21/16 [History] Venlafaxine HCl [Venlafaxine HCl ER] 150 mg PO QAM 09/21/16 [History] Diltiazem HCl [Diltiazem 24Hr Cd] 180 mg PO DAILY 03/31/17 [History] Nitroglycerin [Nitrostat] 0.4 mg SL Q5M PRN 03/31/17 [History] Oxycodone HCl/Acetaminophen [Percocet 5-325 mg Tablet] 1 - 2 each PO Q6H PRN 01/12 [History] Roflumilast [Daliresp] 500 mcg PO DAILY 03/31/17 [History] 3 Allergy/AdvReac Type Severity Reaction Status Date / Time hydrocodone [From Vicodin] Allergy Mild Rash Verified 02/01/18 00:27 Penicillins [PCN] Allergy Mild Rash Verified 02/01/18 00:27 All Systems PM: A 10-system review of systems was performed and is negative for pertinent findings except as documented above in the HPI. - Constitutional Constitutional: chills, fatigue, fever(s), weakness - EENT Eyes: no change in vision, no discharge, no pain, no photophobia Ears: no ear discharge, no ear pain, no tinnitus Nose, mouth and throat: no dysphagia, no nasal discharge, no neck pain, no sore throat - Cardiovascular Cardiovascular ROS IM: chest pain, no diaphoresis, no dyspnea, no lightheadedness, no palpitations, no syncope - Respiratory Respiratory: cough, dyspnea, dyspnea on exertion, wheezing, excessive phlegm production - Gastrointestinal Gastrointestinal: no abdominal pain, no diarrhea, no hematemesis, no hematochezia, no melena, no nausea, no vomiting - Musculoskeletal Musculoskeletal ROS IM: no numbness, no tingling - Integumentary Integumentary IM: no rash, no unusual bruising - Neurological Neurological ROS: no confusion, no convulsions, no focal weakness, no numbness, no tingling, no tremor(s) - Hematologic/Lymphatic Hematologic/Lymphatic: no easy bruising - Constitutional Vitals: Temp Pulse Resp BP Pulse Ox 98.4 F 93 17 134/77 99 02/01/18 01:11 02/01/18 01:11 02/01/18 01:48 02/01/18 01:48 02/01/18 01:48 General appearance: Present: A&O X 3, obese, answers questions appropriately - Respiratory Respiratory exam: Present: CTAB, wheezes (B/L expiratory wheezing). Absent: accessory muscle use, rales, rhonchi - Cardiovascular Cardiovascular exam: Present: RRR, +S1, +S2. Absent: diastolic murmur, gallop, rubs, systolic murmur - GI/Abdominal GI/Abdominal exam: Present: normal bowel sounds, soft (obese), no peritoneal signs. Absent: distended, tenderness - Extremities Exam Extremities exam: Present: full ROM, warm, radial pulses palpable and symmetrical. Absent: calf tenderness, cyanotic, pedal edema - Neurological Exam Neurological exam: Present: CN II-XII intact, oriented X3, no focal deficits. Absent: pronater drift, facial droop, speech deficit - Skin Skin exam: Present: dry, intact Internal Med - H&P Results - Labs CBC & Chem 7: 01/31/18 21:50 01/31/18 21:50 - Assessment and plan (1) Acute on chronic respiratory failure with hypoxia and hypercapnia Current Visit: Yes Status: Acute Assessment and plan: due to underlying COPD; ABG shows 7.34/73/166; he probably has chronic CO2 retention; on home O2 and nocturnal BiPAP with which he is noncompliant; (2) Acute exacerbation of chronic obstructive airways disease Current Visit: Yes Status: Acute Assessment and plan: continue IV steroids, bronchodilators nebs, ICS, empiric IV antibiotics, supplemental O2 with PRN BiPAP support; will consult Pulmonology for further recommendations; Code status discussed- Full code but cannot have CPR due to having metal plates in his chest; agreeable to temporary mechanical ventilation; High risk for complications; (3) Atrial fibrillation Current Visit: Yes Status: Chronic Assessment and plan: continue Cardizem; not on anticoagulation as outpatient; Qualifiers: Atrial fibrillation type: paroxysmal Qualified Code(s): I48.0 - Paroxysmal atrial fibrillation (4) CAD (coronary artery disease) Current Visit: Yes Status: Chronic Qualifiers: Coronary Disease-Associated Artery/Lesion type: [place] artery [place] vs. transplanted heart: [place] heart Associated angina: without angina Qualified Code(s): I25.10 - Atherosclerotic heart disease of [place] coronary artery without angina pectoris (5) Obesity (BMI 30.0-34.9) Current Visit: Yes Status: Chronic (6) PTSD (post-traumatic stress disorder) Current Visit: Yes Status: Chronic Assessment and plan: resume home meds; - Time Spent With Patient Total time spent is greater than 50% in coordination of care (as documented) at patient's floor/unit and/or counseling patient:
[2018-02-01] MEDS ORDERED: Ipratropium/Albuterol Neb 3 ML IH SCH (04:00)
[2018-02-01] MEDS: Ipratropium/Albuterol Neb 3 ML IH SCH ×5 (04:19→20:21)
[2018-02-01 06:40] LABS: Basophils % 0.3 %; Hematocrit 28.6 % (37.5-50.1); Hemoglobin 8.9 g/dL (12.9-16.9); Immature Granulocytes % 1.3 % (0-4); Lymphocytes # 0.3 K/mcL (0.6-4.6); Lymphocytes % 4.7 %; Mean Corpuscular HGB Conc 31.1 g/dL (31.6-35.5); Mean Corpuscular Volume 83.6 fL (83.0-100.0); Monocytes # 0.1 K/mcL (0.0-1.3); Monocytes % 1.1 %; Neutrophils # 5.9 K/mcL (1.6-8.9); Platelet Count 299 K/mcL (140-400); Red Blood Count 3.42 M/mcL (4.19-5.50); Red Cell Distribution Width 12.6 % (11.5-14.5); Segmented Neutrophils % 92.6 %
[2018-02-01 06:52] LABS: BUN/Creatinine Ratio 22 (6-26); Blood Urea Nitrogen 20 mg/dL (8-23); Calcium 9.3 mg/dL (8.6-10.3); Carbon Dioxide 33 mEq/L (23-29); Chloride 100 mEq/L (98-107); Glucose 173 mg/dL (70-105); Osmolality,Calculated 299 (280-300); Potassium 4.3 mEq/L (3.5-5.1); Sodium 141 mEq/L (136-145); eGFR For African Americans > 60 (> 60); eGFR For Non-African Americans > 60 (> 60)
[2018-02-01] MEDS: Doxycycline 100 MG in 0.9 % Sodium Chloride Mini Bag 100 ML IVPB SCH ×2 (06:55→16:38)
[2018-02-01] MEDS: *HR* Heparin 5,000 UNIT/ML VIAL SQ SCH ×3 (06:55→21:12)
[2018-02-01] MEDS ORDERED: Budesonide Neb 0.25 MG/2 ML ONE (07:43)
[2018-02-01] MEDS: Budesonide Neb 0.25 MG/2 ML IH SCH ×2 (07:45→20:21)
--- NOTE | 2018-02-01 08:05 | Event Note ---
<Júnior Nicholson - Last Filed: 02/01/18 16:14> Date of Encounter: 02/01/18 <Yao Sylvester - Last Filed: 02/01/18 17:50> Date of Encounter: 02/01/18 Time of Encounter: 08:40 Subjective Mr. Bess is 67-year-old gentleman with history of advanced COPD which is home O2 dependent. The patient presented with worsening shortness of breath for approximately 2 weeks associated with increased cough and sputum production and increased oxygen need. He was admitted to the hospital initially in October 2017 and he says that he never really feels like he improved very much after that time. Since he has been admitted, the patient has used BiPAP and has responded well to treatment. He says that he is feeling significantly better than he did initially feels that his shortness of breath has resolved nearly baseline. He has no acute complaints this morning. When asked if he has noticed any hematochezia or melena he says that he has not seen anything suspicious. Objective Gen: Vitals noted. No acute distress on BiPAP HEENT: PERRL/EOMI, oropharynx clear, Normocephalic, atraumatic Neck: Supple. No adenopathy. No obvious JVD Cardiac: RRR, no murmur, +S1/S2 Pulmonary: Diffuse bilateral wheezing with faint right anterior crackles Abdomen: soft, nontender, BS noted, no guarding MSK: ROM intact, no joint swelling noted Extremities: no BLE edema, nontender calf, no cyanosis or clubbing Neuro: A&Ox3, moves all extremities, no focal deficits Psych: Appropriate mood and behavior A/P Acute on chronic respiratory failure with hypoxia and hypercapnia Secondary to underlying COPD ABG demonstrated 7.34/73/166 on arrival Suspect chronic CO2 retention He does have home O2 and BiPAP however he is not compliant with this treatment plan He did showed significant improvement with addition to BiPAP and increased O2 We will continue to monitor and treat COPD exacerbation as below Acute exacerbation of COPD Although appears to have improved the patient does remain very wheezy on exam The patient is also still BiPAP dependent Continue doxycycline, day 1 IV Solu-Medrol 40 mg every 8 hour Continue DuoNeb/bronchodilators as needed Pulmonology was consulted overnight Initial blood cultures remain negative Anemia Anemia which appears to be chronic, unknown etiology The patient does have a hemoglobin of 8.8, iron studies demonstrate significant iron deficiency anemia The patient does deny a hematochezia or melena to his knowledge He says that he has had a colonoscopy several years ago which was normal I will plan to check for occult blood in the stool, consider peripheral smear The patient will likely require outpatient GI follow-up Atrial fibrillation Continue on home Cardizem, rate controlled The patient was not on anticoagulation as outpatient We will discuss long-term anticoagulation goals with patient Coronary artery disease History of coronary artery disease Currently on aspirin, statin, Lasix No acute needs at this time DVT prophylaxis Subcutaneous heparin
[2018-02-01] MEDS ORDERED: ARFORMOTEROL TARTRATE 15 MCG IH SCH (09:00)
[2018-02-01] MEDS ORDERED: Roflumilast [Daliresp] 500 MCG PO SCH (09:00)
[2018-02-01 09:58] LABS: % Iron Saturation 3 % (20-55); Iron 10 mcg/dL (65-175); Transferrin 230 mg/dL (203-362)
[2018-02-01] MEDS ORDERED: Budesonide Neb 0.25 MG/2 ML IH SCH (10:00)
[2018-02-01] MEDS: Furosemide 20 MG TABLET PO SCH (10:27)
[2018-02-01] MEDS: Venlafaxine XR (24 HR) 150 MG CAP.ER.24H PO SCH (10:27)
[2018-02-01] MEDS: Diltiazem CD (24hr) 180 MG CAPSULE PO SCH (10:27)
[2018-02-01] MEDS: Gabapentin 400 MG CAPSULE PO SCH ×2 (10:27→21:11)
[2018-02-01] MEDS: MethylPREDNISolone 40 MG/ML VIAL IVP SCH ×2 (10:28→16:37)
[2018-02-01 10:55] LABS: Ferritin 48 ng/ml (20-250)
[2018-02-01] MEDS: Latanoprost 2.5 ML BOTTLE BOTH EYES SCH (21:12)
[2018-02-01] MEDS: OLANZapine 5 MG TAB.RAPDIS PO SCH (21:12)
[2018-02-02] MEDS: Ipratropium/Albuterol Neb 3 ML IH SCH ×7 (00:09→23:06)
[2018-02-02] MEDS: MethylPREDNISolone 40 MG/ML VIAL IVP SCH ×3 (00:51→18:09)
[2018-02-02] MEDS: *HR* Heparin 5,000 UNIT/ML VIAL SQ SCH ×3 (05:08→21:26)
[2018-02-02] MEDS: Doxycycline 100 MG in 0.9 % Sodium Chloride Mini Bag 100 ML IVPB SCH ×2 (05:08→18:10)
[2018-02-02 05:22] LABS: Hemoglobin 8.4 g/dL (12.9-16.9); Immature Granulocytes % 1.4 % (0-4); Lymphocytes # 0.4 K/mcL (0.6-4.6); Lymphocytes % 3.5 %; Mean Corpuscular Hemoglobin 25.5 pg (28.0-33.3); Mean Corpuscular Volume 85.1 fL (83.0-100.0); Mean Platelet Volume 9.1 fL (9.4-12.4); Monocytes # 0.4 K/mcL (0.0-1.3); Monocytes % 3.4 %; Neutrophils # 10.2 K/mcL (1.6-8.9); Platelet Count 313 K/mcL (140-400); Red Blood Count 3.29 M/mcL (4.19-5.50); Red Cell Distribution Width 12.8 % (11.5-14.5); Segmented Neutrophils % 91.7 %
[2018-02-02 05:36] LABS: BUN/Creatinine Ratio 32 (6-26); Blood Urea Nitrogen 26 mg/dL (8-23); Calcium 9.3 mg/dL (8.6-10.3); Carbon Dioxide 33 mEq/L (23-29); Chloride 103 mEq/L (98-107); Glucose 139 mg/dL (70-105); Osmolality,Calculated 301 (280-300); Sodium 142 mEq/L (136-145); eGFR For African Americans > 60 (> 60); eGFR For Non-African Americans > 60 (> 60)
[2018-02-02] MEDS: Budesonide Neb 0.25 MG/2 ML IH SCH ×2 (08:02→20:06)
[2018-02-02] MEDS: Diltiazem CD (24hr) 180 MG CAPSULE PO SCH (10:06)
[2018-02-02] MEDS: Furosemide 20 MG TABLET PO SCH (10:06)
[2018-02-02] MEDS: Gabapentin 400 MG CAPSULE PO SCH ×2 (10:07→21:24)
[2018-02-02] MEDS: Venlafaxine XR (24 HR) 150 MG CAP.ER.24H PO SCH (10:07)
--- NOTE | 2018-02-02 12:49 | Internal Med Progress Note ---
<Yao Sylvester - Last Filed: 02/02/18 12:46> Date of Encounter: 02/02/18 Time of Encounter: 08:15 - Assessment and plan (1) Acute on chronic respiratory failure with hypoxia and hypercapnia Current Visit: Yes Status: Acute Assessment and plan: Secondary to underlying COPD ABG demonstrated 7.34/73/166 on arrival Suspect chronic CO2 retention He does have home O2 and BiPAP however he is not compliant with this treatment plan He did showed significant improvement with addition to BiPAP and increased O2 We will continue to monitor and treat COPD exacerbation as below (2) Acute exacerbation of chronic obstructive airways disease Current Visit: Yes Status: Acute Assessment and plan: Continues to be extremely wheezy on examination, still complains of shortness of breath The patient is also still BiPAP dependent Continue doxycycline, day 2 IV Solu-Medrol 40 mg every 8 hour Continue DuoNeb/bronchodilators as needed Initial blood cultures remain negative (3) CAD (coronary artery disease) Current Visit: Yes Status: Chronic Assessment and plan: History of coronary artery disease Currently on aspirin, statin, Lasix No acute needs at this time Qualifiers: Coronary Disease-Associated Artery/Lesion type: [place] artery [place] vs. transplanted heart: [place] heart Associated angina: without angina Qualified Code(s): I25.10 - Atherosclerotic heart disease of [place] coronary artery without angina pectoris (4) Atrial fibrillation Current Visit: Yes Status: Chronic Assessment and plan: Continue on home Cardizem, rate controlled The patient was not on anticoagulation as outpatient We will discuss long-term anticoagulation goals with patient Hold on initiation pending GI workup for possible blood loss Qualifiers: Atrial fibrillation type: paroxysmal Qualified Code(s): I48.0 - Paroxysmal atrial fibrillation (5) Obesity (BMI 30.0-34.9) Current Visit: Yes Status: Chronic (6) PTSD (post-traumatic stress disorder) Current Visit: Yes Status: Chronic (7) DVT prophylaxis Current Visit: No Status: Acute Assessment and plan: Subcutaneous heparin (8) Anemia Current Visit: Yes Status: Acute Assessment and plan: Anemia which appears to be chronic, iron deficiency Hgb dropped to 8.4 from 8.8m possibly due to fluid expansion Stool Occult blood pending, Peripheral smear pending Started Venofer, will continue for 5 days Consider GI consult as needed Qualifiers: Anemia type: iron deficiency Iron deficiency anemia type: unspecified iron deficiency Qualified Code(s): D50.9 - Iron deficiency anemia, unspecified - Time Spent With Patient Total time spent is greater than 50% in coordination of care (as documented) at patient's floor/unit and/or counseling patient: - Subjective Interval history: The patient is resting comfortably in bed at time of examination. He has no acute complaints at this time. - Constitutional Vitals: Temp Pulse Resp BP Pulse Ox 98.0 F 97 16 125/63 99 02/02/18 11:47 02/02/18 11:47 02/02/18 11:47 02/02/18 11:47 02/02/18 11:47 General appearance: Present: A&O X 3, obese, answers questions appropriately Exam: Gen: Vitals noted. No acute distress HEENT: PERRL/EOMI, oropharynx clear, Normocephalic, atraumatic Neck: Supple. No adenopathy. No obvious JVD Cardiac: RRR, no murmur, +S1/S2 Pulmonary: Diffuse bilateral wheezing with faint right anterior crackles, no improvement from prior exam Abdomen: soft, nontender, no guarding MSK: ROM intact, no joint swelling noted Extremities: no BLE edema, nontender calf, no cyanosis or clubbing Neuro: A&Ox3, moves all extremities, no focal deficits Psych: Appropriate mood and behavior Internal Medicine: Result - Labs CBC & Chem 7: 02/02/18 04:30 02/02/18 04:30 Labs: Short CBC 02/02/18 Range/Units 04:30 WBC 11.1 D (4.3-11.1) K/mcL Hgb 8.4 L (12.9-16.9) g/dL Hct 28.0 L (37.5-50.1) % Plt Count 313 (140-400) K/mcL Neutrophils # 10.2 H (1.6-8.9) K/mcL BMP 02/02/18 04:30 Sodium 142 Potassium 4.0 Chloride 103 Carbon Dioxide 33 H BUN 26 H Creatinine 0.82 Glucose 139 H Calcium 9.3 - ABG Interpretation ABG results: ABG ABG pH 7.34 pH Units (7.32-7.45) 01/31/18 22:19 ABG pCO2 73 mmHg (35-45) H* 01/31/18 22:19 ABG pO2 166 mmHg (85-104) H 01/31/18 22:19 ABG O2 Saturation 99 % (95-98) H 01/31/18 22:19 Consult Discharge Plan - Plan Referrals: Morris Hudson DO [Primary Care Provider] - <Júnior Nicholson - Last Filed: 02/02/18 14:00> Date of Encounter: 02/02/18 - Assessment and plan (1) Obesity (BMI 30.0-34.9) Current Visit: Yes Status: Chronic (2) PTSD (post-traumatic stress disorder) Current Visit: Yes Status: Chronic (3) Acute on chronic respiratory failure with hypoxia and hypercapnia Current Visit: Yes Status: Acute (4) Acute exacerbation of chronic obstructive airways disease Current Visit: Yes Status: Acute (5) CAD (coronary artery disease) Current Visit: Yes Status: Chronic Qualifiers: Coronary Disease-Associated Artery/Lesion type: [place] artery [place] vs. transplanted heart: [place] heart Associated angina: without angina Qualified Code(s): I25.10 - Atherosclerotic heart disease of [place] coronary artery without angina pectoris (6) DVT prophylaxis Current Visit: No Status: Acute (7) Atrial fibrillation Current Visit: Yes Status: Chronic Qualifiers: Atrial fibrillation type: paroxysmal Qualified Code(s): I48.0 - Paroxysmal atrial fibrillation (8) Anemia Current Visit: Yes Status: Acute Qualifiers: Anemia type: iron deficiency Iron deficiency anemia type: unspecified iron deficiency Qualified Code(s): D50.9 - Iron deficiency anemia, unspecified - Time Spent With Patient Total time spent is greater than 50% in coordination of care (as documented) at patient's floor/unit and/or counseling patient: - Constitutional Vitals: Temp Pulse Resp BP Pulse Ox 98.0 F 97 16 125/63 99 02/02/18 11:47 02/02/18 11:47 02/02/18 11:47 02/02/18 11:47 02/02/18 11:47 Internal Medicine: Result - Labs CBC & Chem 7: 02/02/18 04:30 02/02/18 04:30 Labs: Short CBC 02/02/18 Range/Units 04:30 WBC 11.1 D (4.3-11.1) K/mcL Hgb 8.4 L (12.9-16.9) g/dL Hct 28.0 L (37.5-50.1) % Plt Count 313 (140-400) K/mcL Neutrophils # 10.2 H (1.6-8.9) K/mcL BMP 02/02/18 04:30 Sodium 142 Potassium 4.0 Chloride 103 Carbon Dioxide 33 H BUN 26 H Creatinine 0.82 Glucose 139 H Calcium 9.3 - ABG Interpretation ABG results: ABG ABG pH 7.34 pH Units (7.32-7.45) 01/31/18 22:19 ABG pCO2 73 mmHg (35-45) H* 01/31/18 22:19 ABG pO2 166 mmHg (85-104) H 01/31/18 22:19 ABG O2 Saturation 99 % (95-98) H 01/31/18 22:19 - Attending Attestation I examined this patient 02/02, and my medical decision-making was reviewed with the Resident Physician. I agree with the documented findings, disposition and treatment plan as described except to the extent set forth below. 67 M with advanced COPD , chronic hypoxic and hypercapneic resp failure on home O2 and BIPAP, Chronic YOON, Afib, CAD. He is admitted and being managed for acute exacerbation of COPD, acute on chronic hypercapneic failure, no new complains , he stated he has no clinical improvement as yet but not in respiratory distress at time of eval. He is still wheezing diffusely, no rhonchi, other exam unremarkable Labs and Imaging reviewed Venofer has been started, agree with FOBT, however colonsocpy was negative for malignancy Continue current antibiotics Rest of details as in the resident physician documentation
--- NOTE | 2018-02-02 16:32 | Electrocardiograph Report ---
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
[2018-02-02] MEDS: OLANZapine 5 MG TAB.RAPDIS PO SCH (21:25)
[2018-02-02] MEDS: Latanoprost 2.5 ML BOTTLE BOTH EYES SCH (21:25)
[2018-02-03] MEDS: MethylPREDNISolone 40 MG/ML VIAL IVP SCH ×4 (01:18→23:33)
[2018-02-03] MEDS: Ipratropium/Albuterol Neb 3 ML IH SCH ×5 (03:22→19:56)
[2018-02-03 05:32] LABS: Hematocrit 26.7 % (37.5-50.1); Hemoglobin 8.2 g/dL (12.9-16.9); Lymphocytes # 0.4 K/mcL (0.6-4.6); Lymphocytes % 2.5 %; Mean Corpuscular HGB Conc 30.7 g/dL (31.6-35.5); Mean Corpuscular Hemoglobin 26.5 pg (28.0-33.3); Mean Corpuscular Volume 86.4 fL (83.0-100.0); Mean Platelet Volume 9.1 fL (9.4-12.4); Monocytes # 0.5 K/mcL (0.0-1.3); Nucleated Red Blood Cells 0.1 /100 WBC (0); Platelet Count 346 K/mcL (140-400); Red Blood Count 3.09 M/mcL (4.19-5.50); Segmented Neutrophils % 92.5 %
[2018-02-03] MEDS: *HR* Heparin 5,000 UNIT/ML VIAL SQ SCH ×3 (05:49→21:03)
[2018-02-03] MEDS: Doxycycline 100 MG in 0.9 % Sodium Chloride Mini Bag 100 ML IVPB SCH (05:52)
[2018-02-03 05:57] LABS: Alanine Aminotransferase 10 Units/L (7-52); Albumin 3.3 g/dL (3.5-5.7); Albumin/Globulin Ratio 1.4 (1.1-2.2); Alkaline Phosphatase 63 Units/L (34-104); Aspartate Amino Transferase 19 Units/L (13-39); BUN/Creatinine Ratio 43 (6-26); Bilirubin,Total 0.2 mg/dL (0.3-1.0); Blood Urea Nitrogen 30 mg/dL (8-23); Calcium 9.1 mg/dL (8.6-10.3); Carbon Dioxide 35 mEq/L (23-29); Chloride 104 mEq/L (98-107); Globulin 2.3 g/dL (2.4-3.5); Glucose 170 mg/dL (70-105); Osmolality,Calculated 302 (280-300); Sodium 141 mEq/L (136-145); Total Protein 5.6 g/dL (6.4-8.9); eGFR For African Americans > 60 (> 60); eGFR For Non-African Americans > 60 (> 60)
[2018-02-03] MEDS: Budesonide Neb 0.25 MG/2 ML IH SCH ×2 (07:34→19:56)
[2018-02-03] MEDS: Furosemide 20 MG TABLET PO SCH (08:41)
[2018-02-03] MEDS: Gabapentin 400 MG CAPSULE PO SCH ×2 (08:41→20:55)
[2018-02-03] MEDS: Venlafaxine XR (24 HR) 150 MG CAP.ER.24H PO SCH (08:41)
[2018-02-03] MEDS: Diltiazem CD (24hr) 180 MG CAPSULE PO SCH (08:41)
[2018-02-03] MEDS ORDERED: D5% in Water 1,000 ML IVC PRN (10:47)
[2018-02-03] MEDS ORDERED: Dextrose Gel 15 GM/37.5 ML TUBE PO PRN ×2 (10:47)
[2018-02-03] MEDS ORDERED: *HR* Dextrose 50 % in Water (Syg) 50 ML SYRINGE IVP PRN (10:47)
[2018-02-03 11:36] LABS: Retculocyte # 0.05 M/mcL (0.05-0.10); Reticulocyte % 1.8 % (1.6-2.8)
[2018-02-03] MEDS: Insulin LISPRO 300 UNITS/3 ML VIAL SQ SCH ×3 (11:57→20:56)
[2018-02-03 12:15] LABS: Estimated Average Glucose 134 mg/dl; Hemoglobin A1C 6.3 %
--- NOTE | 2018-02-03 14:28 | Internal Med Progress Note ---
<Júnior Nicholson T - Last Filed: 02/03/18 16:36> Date of Encounter: 02/03/18 - Assessment and plan (1) Obesity (BMI 30.0-34.9) Current Visit: Yes Status: Chronic (2) PTSD (post-traumatic stress disorder) Current Visit: Yes Status: Chronic (3) Acute on chronic respiratory failure with hypoxia and hypercapnia Current Visit: Yes Status: Acute (4) Acute exacerbation of chronic obstructive airways disease Current Visit: Yes Status: Acute (5) CAD (coronary artery disease) Current Visit: Yes Status: Chronic Qualifiers: Coronary Disease-Associated Artery/Lesion type: [place] artery [place] vs. transplanted heart: [place] heart Associated angina: without angina Qualified Code(s): I25.10 - Atherosclerotic heart disease of [place] coronary artery without angina pectoris (6) DVT prophylaxis Current Visit: No Status: Acute (7) Atrial fibrillation Current Visit: Yes Status: Chronic Qualifiers: Atrial fibrillation type: paroxysmal Qualified Code(s): I48.0 - Paroxysmal atrial fibrillation (8) Anemia Current Visit: Yes Status: Acute Qualifiers: Anemia type: iron deficiency Iron deficiency anemia type: unspecified iron deficiency Qualified Code(s): D50.9 - Iron deficiency anemia, unspecified - Time Spent With Patient Total time spent is greater than 50% in coordination of care (as documented) at patient's floor/unit and/or counseling patient: - Constitutional Vitals: Temp Pulse Resp BP Pulse Ox 97.0 F L 98 19 139/61 99 02/03/18 15:39 02/03/18 15:39 02/03/18 15:58 02/03/18 15:39 02/03/18 15:58 Internal Medicine: Result - Labs CBC & Chem 7: 02/03/18 05:19 02/03/18 05:19 Labs: Short CBC 02/03/18 Range/Units 05:19 WBC 15.2 H (4.3-11.1) K/mcL Hgb 8.2 L (12.9-16.9) g/dL Hct 26.7 L (37.5-50.1) % Plt Count 346 (140-400) K/mcL Neutrophils # 14.0 H (1.6-8.9) K/mcL BMP 02/03/18 05:19 Sodium 141 Potassium 4.0 Chloride 104 Carbon Dioxide 35 H BUN 30 H Creatinine 0.70 Glucose 170 H Calcium 9.1 Liver Function 02/03/18 Range/Units 05:19 Total Bilirubin 0.2 L (0.3-1.0) mg/dL AST 19 (13-39) Units/L ALT 10 (7-52) Units/L Alkaline Phosphatase 63 (34-104) Units/L Albumin 3.3 L (3.5-5.7) g/dL - ABG Interpretation ABG results: ABG ABG pH 7.34 pH Units (7.32-7.45) 01/31/18 22:19 ABG pCO2 73 mmHg (35-45) H* 01/31/18 22:19 ABG pO2 166 mmHg (85-104) H 01/31/18 22:19 ABG O2 Saturation 99 % (95-98) H 01/31/18 22:19 Consult Discharge Plan - Plan Referrals: Morris Hudson DO [Primary Care Provider] - - Attending Attestation I examined this patient 02/03, and my medical decision-making was reviewed with the Resident Physician. I agree with the documented findings, disposition and treatment plan as described except to the extent set forth below. 67 M with advanced COPD , chronic hypoxic and hypercapneic resp failure on home O2 and BIPAP, Chronic YOON, Afib, CAD. He is admitted and being managed for acute exacerbation of COPD, acute on chronic hypercapneic failure, no new complains , he stated he has no clinical improvement as yet but not in respiratory distress at time of eval. His chest is more clear to auscultation this morning, he is comfortable Labs and Imaging reviewed: Persistent anemia, low normal retic count, low retic index Venofer has been started, agree with FOBT, however colonsocpy was negative for malignancy Consult heme/onc Continue current management Rest of details as in the resident physician documentation <Yao Sylvester - Last Filed: 02/03/18 17:06> Date of Encounter: 02/03/18 Time of Encounter: 08:45 - Assessment and plan (1) Acute on chronic respiratory failure with hypoxia and hypercapnia Current Visit: Yes Status: Acute Assessment and plan: Secondary to underlying COPD ABG demonstrated 7.34/73/166 on arrival Suspect chronic CO2 retention He does have home O2 and BiPAP however he is not compliant with this treatment plan He did showed significant improvement with addition to BiPAP and increased O2 We will continue to monitor and treat COPD exacerbation as below (2) Acute exacerbation of chronic obstructive airways disease Current Visit: Yes Status: Acute Assessment and plan: Continues to be extremely wheezy on examination, still complains of shortness of breath The patient is also still BiPAP dependent overnight and throughout day intermittently Transition to PO doxycycline, antibiotic day 3 IV Solu-Medrol 40 mg every 8 hour, aim to decrease tomorrow Continue DuoNeb/bronchodilators as needed Initial blood cultures remain negative (3) Anemia Current Visit: Yes Status: Acute Assessment and plan: Anemia which appears to be chronic, iron deficiency Hgb dropped to 8.2 from 8.4 possibly due to fluid expansion Stool Occult blood pending, Peripheral smear demonstrates YOON Started Venofer, will continue for 5 days Reticulocyte hgb equivalent is low, indicating inadequate usage of iron I will consult hematology for opinions Qualifiers: Anemia type: iron deficiency Iron deficiency anemia type: unspecified iron deficiency Qualified Code(s): D50.9 - Iron deficiency anemia, unspecified (4) CAD (coronary artery disease) Current Visit: Yes Status: Chronic Assessment and plan: History of coronary artery disease Currently on aspirin, statin, Lasix No acute needs at this time Qualifiers: Coronary Disease-Associated Artery/Lesion type: [place] artery [place] vs. transplanted heart: [place] heart Associated angina: without angina Qualified Code(s): I25.10 - Atherosclerotic heart disease of [place] coronary artery without angina pectoris (5) Atrial fibrillation Current Visit: Yes Status: Chronic Assessment and plan: Continue on home Cardizem, rate controlled The patient was not on anticoagulation as outpatient We will discuss long-term anticoagulation goals with patient Hold on initiation pending GI workup for possible blood loss Qualifiers: Atrial fibrillation type: paroxysmal Qualified Code(s): I48.0 - Paroxysmal atrial fibrillation (6) Obesity (BMI 30.0-34.9) Current Visit: Yes Status: Chronic (7) PTSD (post-traumatic stress disorder) Current Visit: Yes Status: Chronic Assessment and plan: Continue home meds (8) DVT prophylaxis Current Visit: No Status: Acute Assessment and plan: Subcutaneous heparin - Time Spent With Patient Total time spent is greater than 50% in coordination of care (as documented) at patient's floor/unit and/or counseling patient: - Subjective Interval history: The patient is resting comfortably in bed at time of examination. He says that overall he is feeling better. He has not had a bowel movement overnight. He has no acute complaints at this time. - Constitutional Vitals: Temp Pulse Resp BP Pulse Ox 97.9 F 82 16 99/64 100 02/03/18 11:45 02/03/18 11:45 02/03/18 11:45 02/03/18 11:45 02/03/18 11:45 General appearance: Present: A&O X 3, obese, answers questions appropriately Exam: Gen: Vitals noted. No acute distress HEENT: oropharynx clear, Normocephalic, atraumatic Neck: Supple. No adenopathy. No obvious JVD Cardiac: RRR, no murmur, +S1/S2 Pulmonary: Diffuse bilateral wheezing Abdomen: soft, nontender, no guarding MSK: ROM intact, no joint swelling noted Extremities: no BLE edema, nontender calf, no cyanosis or clubbing Neuro: A&Ox3, moves all extremities, no focal deficits Psych: Appropriate mood and behavior Internal Medicine: Result - Labs CBC & Chem 7: 02/03/18 05:19 02/03/18 05:19 Labs: Short CBC 02/03/18 Range/Units 05:19 WBC 15.2 H (4.3-11.1) K/mcL Hgb 8.2 L (12.9-16.9) g/dL Hct 26.7 L (37.5-50.1) % Plt Count 346 (140-400) K/mcL Neutrophils # 14.0 H (1.6-8.9) K/mcL BMP 02/03/18 05:19 Sodium 141 Potassium 4.0 Chloride 104 Carbon Dioxide 35 H BUN 30 H Creatinine 0.70 Glucose 170 H Calcium 9.1 Liver Function 02/03/18 Range/Units 05:19 Total Bilirubin 0.2 L (0.3-1.0) mg/dL AST 19 (13-39) Units/L ALT 10 (7-52) Units/L Alkaline Phosphatase 63 (34-104) Units/L Albumin 3.3 L (3.5-5.7) g/dL - ABG Interpretation ABG results: ABG ABG pH 7.34 pH Units (7.32-7.45) 01/31/18 22:19 ABG pCO2 73 mmHg (35-45) H* 01/31/18 22:19 ABG pO2 166 mmHg (85-104) H 01/31/18 22:19 ABG O2 Saturation 99 % (95-98) H 01/31/18 22:19
--- NOTE | 2018-02-03 17:23 | Oncology Inp Consult Note ---
<Kenzie Dangelo L - Last Filed: 02/04/18 09:47> Date of Encounter: 02/03/18 Time of Encounter: 17:22 Assessment and Plan (1) Anemia Status: Acute Assessment and plan: Chronic normocytic anemia dating back to lab work available in system from 2014. Hgb 8.2 today. Baseline appears to be around 10-11. No history or evidence of CKD. Iron level 10, 3% saturation, Ferritin 48- Agree with IV Venofer UTD on colonoscopy from April 2015 for intermittent rectal bleeding-found hyperplastic rectal polyps No prior history of EGD Stool occult [id number] positive consider further GI evaluation for etiology of YOON Ordered TSH, B12, folate, LDH, direct camila, celiac workup and SPEP for further assessment of anemia. Will arrange for follow up with Dr. Eastman as some of the above tests will take a few days to result. Qualifiers: Anemia type: iron deficiency Iron deficiency anemia type: unspecified iron deficiency Qualified Code(s): D50.9 - Iron deficiency anemia, unspecified - Data of Consult Patient: new to practice Consult date: 02/03/18 Requesting Physician: Júnior Nicholson MD Primary Care Provider: Cale Malagon - Consult Narrative Reason for consult: Anemia History of present illness: Mr. Bess is a 67 year old male with advanced COPD , chronic hypoxic and hypercapneic resp failure on home O2 and BIPAP, Chronic YOON, and CAD. He presented to [facility] via EMS on 01/31/18. He is a patient with pulmonology/Dr. Cortez. Over the past 2 weeks prior to admission he has experienced worsening exertional dyspnea, dry cough and wheezing. His SOB worsened to the point that it did not improve with breathing treatments which led to his presentation. He is admitted with acute on chronic respiratory failure, hypercapnia, hypoxia and COPD exacerbation. Hematology consulted for further anemia workup. Mr. Bess is a former smoker, quit in year 1999. He is up to date on his colonoscopy. He denies any history of cancer. He denies melena, hematochezia or hematemesis. He reports epistaxis about once weekly which last about 2-10 minutes. He is on chronic oxygen per nasal cannula on 2.5-4 liters. Hedenies regular alcohol use, denies any illicit drug use. Past Med Surg Social Fam HX - Past Medical History Medical history: arthritis, asthma, cancer, COPD, GERD, glaucoma, hyperlipidemia , valvular heart disease, other Psychiatric history: anxiety, PTSD - Past Surgical History Surgical History: herniorrhaphy, orthopedic, other, sinus surgery, other - Social History Smoking Status: Former smoker Smokeless Tobacco Status: No Alcohol use: none Drug use: none - Family History Mother Living Status: Age at : 77 Hx Family Cancer: Yes (Rectal) Hx Family Neurologic Disorders: Yes (alzheimers) Father Living Status: Age at : 77 Cause of : emphysema Hx Family Respiratory Disorders: Yes Brother Adopted: No Family Member Ethnicity: Non- Living Status: Age at : 55 Cause of : Lung cancer Hx Family Cardiac Disorders: Yes (murmur) Hx Family Respiratory Disorders: Yes Hx Family Cancer: Yes Hx Family GI Disorders: No Hx Family Endocrine Disorder: No Hx Family Neuromuscular Disorders: No Hx Family Neurologic Disorders: No Hx Family HEENT Disorders: No Hx Family Autoimmune Disorders: No Medications and Allergies Albuterol Neb [Proventil Neb] 2.5 mg IH TID PRN 05/09/15 [History] Albuterol Sulfate [Albuterol Inhaler] 2 puff IH Q4HR PRN 05/09/15 [History] Arformoterol Tartrate [Brovana] 15 mcg IH BID 05/09/15 [History] Atorvastatin Calcium [Lipitor] 40 mg PO HS 05/09/15 [History] Budesonide Neb [Pulmicort Neb] 0.25 mg IH BID 05/09/15 [History] Docusate Sodium [Dulcolax Stool Softener] 100 mg PO HS 05/09/15 [History] Oxygen 3 l NS AD 05/09/15 [History] Pantoprazole Sodium [Protonix] 40 mg PO QAM 05/09/15 [History] Polyethylene Glycol 3350 [MiraLAX] 17 gm PO DAILY PRN 05/09/15 [History] Tiotropium [Spiriva] 18 mcg IH QAM 05/09/15 [History] Travoprost [Travatan Z] 1 drop OP HS 05/09/15 [History] Furosemide [Lasix] 20 mg PO DAILY 09/21/16 [History] Potassium Chloride [K-Tab ER] 10 meq PO DAILY 09/21/16 [History] Venlafaxine HCl [Venlafaxine HCl ER] 150 mg PO QAM 09/21/16 [History] Diltiazem HCl [Diltiazem 24Hr Cd] 180 mg PO DAILY 03/31/17 [History] Nitroglycerin [Nitrostat] 0.4 mg SL Q5M PRN 03/31/17 [History] Oxycodone HCl/Acetaminophen [Percocet 5-325 mg Tablet] 1 - 2 each PO Q6H PRN 01/12 [History] Roflumilast [Daliresp] 500 mcg PO DAILY 03/31/17 [History] Gabapentin [Neurontin] 800 mg PO AD 02/01/18 [History] OLANZapine [Zyprexa] 7.5 mg PO HS 02/01/18 [History] 3 Allergy/AdvReac Type Severity Reaction Status Date / Time hydrocodone [From Vicodin] Allergy Mild Rash Verified 02/01/18 00:27 Penicillins [PCN] Allergy Mild Rash Verified 02/01/18 00:27 Constitutional: Present: fatigue, weakness. Absent: anorexia, chills, fever(s) , weight loss Eyes: Absent: change in vision Nose, mouth and throat: Present: as per HPI, epistaxis. Absent: dysphagia Cardiovascular: Absent: chest pain, palpitations Respiratory: Present: as per HPI, cough, dyspnea, wheezing Gastrointestinal: Absent: abdominal pain, hematemesis, hematochezia, melena, nausea, vomiting Additional comments: denies dysuria, hematuria Musculoskeletal: Present: muscle weakness Integumentary: Absent: wounds Neurological: Absent: focal weakness, frequent falls Hematologic/Lymphatic: Present: as per HPI Oncology - Exam - Constitutional Vitals: Temp Pulse Resp BP Pulse Ox 97.0 F L 98 19 139/61 99 02/03/18 15:39 02/03/18 15:39 02/03/18 15:58 02/03/18 15:39 02/03/18 15:58 General appearance: cooperative, no acute distress, no febrile - Head Head exam: Present: atraumatic - ENT ENT exam: Present: mucous membranes moist - Respiratory Respiratory exam: Present: decreased breath sounds, wheezes. Absent: respiratory distress - Cardiovascular Cardiovascular exam: Present: RRR, +S1, +S2 - GI/Abdominal GI/Abdominal exam: Present: normal bowel sounds, soft. Absent: tenderness - Extremities Exam Extremities exam: Present: normal inspection. Absent: calf tenderness - Neurological Exam Neurological exam: Present: alert, oriented X3, no focal deficits, strengths equal and symetr throughout - Psychiatric Psychiatric exam: Present: normal affect, normal mood - Skin Skin exam: Present: dry, intact, normal color, warm Oncology - Results Labs: Short CBC 02/03/18 Range/Units 05:19 WBC 15.2 H (4.3-11.1) K/mcL Hgb 8.2 L (12.9-16.9) g/dL Hct 26.7 L (37.5-50.1) % Plt Count 346 (140-400) K/mcL Neutrophils # 14.0 H (1.6-8.9) K/mcL BMP 02/03/18 05:19 Sodium 141 Potassium 4.0 Chloride 104 Carbon Dioxide 35 H BUN 30 H Creatinine 0.70 Glucose 170 H Calcium 9.1 Liver Function 02/03/18 Range/Units 05:19 Total Bilirubin 0.2 L (0.3-1.0) mg/dL AST 19 (13-39) Units/L ALT 10 (7-52) Units/L Alkaline Phosphatase 63 (34-104) Units/L Albumin 3.3 L (3.5-5.7) g/dL Consult Discharge Plan - Plan Referrals: Lizeth Cortez MD [Partnered Physician] - 02/18/18 9:00 am Morris Hudson DO [Primary Care Provider] - 02/10/18 11:30 am <Melyssa Eastman S - Last Filed: 02/04/18 13:27> Date of Encounter: 02/04/18 - Data of Consult Requesting Physician: Júnior Nicholson MD Primary Care Provider: Cale Malagon - Consult Narrative History of present illness: Mr. Bess is a 67 year old male Oncology - Exam - Constitutional Vitals: Temp Pulse Resp BP Pulse Ox 97.0 F L 98 19 139/61 99 02/03/18 15:39 02/03/18 15:39 02/03/18 15:58 02/03/18 15:39 02/03/18 15:58 Oncology - Results Labs: Short CBC 02/03/18 Range/Units 05:19 WBC 15.2 H (4.3-11.1) K/mcL Hgb 8.2 L (12.9-16.9) g/dL Hct 26.7 L (37.5-50.1) % Plt Count 346 (140-400) K/mcL Neutrophils # 14.0 H (1.6-8.9) K/mcL BMP 02/03/18 05:19 Sodium 141 Potassium 4.0 Chloride 104 Carbon Dioxide 35 H BUN 30 H Creatinine 0.70 Glucose 170 H Calcium 9.1 Liver Function 02/03/18 Range/Units 05:19 Total Bilirubin 0.2 L (0.3-1.0) mg/dL AST 19 (13-39) Units/L ALT 10 (7-52) Units/L Alkaline Phosphatase 63 (34-104) Units/L Albumin 3.3 L (3.5-5.7) g/dL - Attending Attestation 1. Normocytic normochromic anemia at least dating back to 2014 he had his hemoglobin progressively dropped from 11-8 range. Workup showed B12 folate TSH normal. Iron levels low. Agree with IV Venofer We will work him up for celiac disease. Also check SPEP and light chains. LDH is low. We will check Camila direct If he continues to be anemic after iron deficiency is corrected may consider bone marrow biopsy He needs GI evaluation as well 2. End-stage COPD which was the main reason for admission. Anemia is also contributing to shortness of breath
[2018-02-03] MEDS ORDERED: Doxycycline 100 MG in 0.9 % Sodium Chloride Mini Bag 100 ML IVPB ONE (18:00)
[2018-02-03 18:03] LABS: Folate 9.9 ng/mL (3.0-16.0)
[2018-02-03 18:48] LABS: Thyroid Stimulating Hormone 0.245 mcIU/mL (0.340-5.600)
[2018-02-03] MEDS: OLANZapine 5 MG TAB.RAPDIS PO SCH (20:55)
[2018-02-03] MEDS: Latanoprost 2.5 ML BOTTLE BOTH EYES SCH (20:56)
[2018-02-04] MEDS: Ipratropium/Albuterol Neb 3 ML IH SCH ×7 (00:48→23:16)
[2018-02-04] MEDS: *HR* Heparin 5,000 UNIT/ML VIAL SQ SCH ×3 (05:50→22:20)
[2018-02-04 06:15] LABS: Basophils % 0.1 %; Hematocrit 27.8 % (37.5-50.1); Hemoglobin 8.1 g/dL (12.9-16.9); Immature Granulocytes % 3.6 % (0-4); Immature Platelets 1.6 % (1.1-6.1); Lymphocytes # 0.4 K/mcL (0.6-4.6); Lymphocytes % 2.8 %; Mean Corpuscular HGB Conc 29.1 g/dL (31.6-35.5); Mean Corpuscular Hemoglobin 25.2 pg (28.0-33.3); Mean Corpuscular Volume 86.6 fL (83.0-100.0); Mean Platelet Volume 9.3 fL (9.4-12.4); Monocytes # 0.2 K/mcL (0.0-1.3); Monocytes % 1.5 %; Neutrophils # 11.8 K/mcL (1.6-8.9); Nucleated Red Blood Cells 0.2 /100 WBC (0); Platelet Count 389 K/mcL (140-400); Red Blood Count 3.21 M/mcL (4.19-5.50); Red Cell Distribution Width 13.2 % (11.5-14.5)
[2018-02-04 06:19] LABS: BUN/Creatinine Ratio 50 (6-26); Blood Urea Nitrogen 32 mg/dL (8-23); Calcium 8.9 mg/dL (8.6-10.3); Carbon Dioxide 31 mEq/L (23-29); Chloride 106 mEq/L (98-107); Glucose 191 mg/dL (70-105); Osmolality,Calculated 308 (280-300); Potassium 4.3 mEq/L (3.5-5.1); Sodium 143 mEq/L (136-145); eGFR For African Americans > 60 (> 60); eGFR For Non-African Americans > 60 (> 60)
[2018-02-04] MEDS: Budesonide Neb 0.25 MG/2 ML IH SCH ×2 (07:40→19:46)
--- NOTE | 2018-02-04 07:45 | Internal Med Progress Note ---
<Yao Sylvester - Last Filed: 02/04/18 14:45> Date of Encounter: 02/04/18 Time of Encounter: 07:43 - Assessment and plan (1) Acute on chronic respiratory failure with hypoxia and hypercapnia Current Visit: Yes Status: Acute Assessment and plan: Secondary to underlying COPD ABG demonstrated 7.34/73/166 on arrival Suspect chronic CO2 retention He does have home O2 and BiPAP however he is not compliant with this treatment plan He did showed significant improvement with addition to BiPAP and increased O2 We will continue to monitor and treat COPD exacerbation as below (2) Acute exacerbation of chronic obstructive airways disease Current Visit: Yes Status: Acute Assessment and plan: Continues to be extremely wheezy on examination, still complains of shortness of breath The patient is also still BiPAP dependent overnight and throughout day intermittently Transition to PO doxycycline, antibiotic day 3 IV Solu-Medrol 40 mg every 8 hour, I will decrease today Continue DuoNeb/bronchodilators as needed Initial blood cultures remain negative Update 02/04 Continue doxycycline, day / Transition to Solu-medrol 40mg Q12h The patient has Q4h duonebs scheduled, q2h Albuterol nebs PRN (3) CAD (coronary artery disease) Current Visit: Yes Status: Chronic Assessment and plan: History of coronary artery disease Currently on aspirin, statin, Lasix No acute needs at this time Qualifiers: Coronary Disease-Associated Artery/Lesion type: [place] artery [place] vs. transplanted heart: [place] heart Associated angina: without angina Qualified Code(s): I25.10 - Atherosclerotic heart disease of [place] coronary artery without angina pectoris (4) Atrial fibrillation Current Visit: Yes Status: Chronic Assessment and plan: Continue on home Cardizem, rate controlled The patient was not on anticoagulation as outpatient We will discuss long-term anticoagulation goals with patient Hold on initiation pending GI workup for possible blood loss Qualifiers: Atrial fibrillation type: paroxysmal Qualified Code(s): I48.0 - Paroxysmal atrial fibrillation (5) Obesity (BMI 30.0-34.9) Current Visit: Yes Status: Chronic (6) PTSD (post-traumatic stress disorder) Current Visit: Yes Status: Chronic Assessment and plan: Continue home meds (7) DVT prophylaxis Current Visit: No Status: Acute Assessment and plan: Subcutaneous heparin (8) Anemia Current Visit: Yes Status: Acute Assessment and plan: Anemia which appears to be chronic, iron deficiency Hgb dropped to 8.2 from 8.4 possibly due to fluid expansion Stool Occult blood pending, Peripheral smear demonstrates YOON Started Venofer, will continue for 5 days Reticulocyte hgb equivalent is low, indicating inadequate usage of iron I will consult hematology for opinions Update 02/04 Hgb continues to fall, 8.1 today Stool occult blood returns positive Hematology/Oncology is on board, will follow I will consult GI today for EGD/Colonoscopy Qualifiers: Anemia type: iron deficiency Iron deficiency anemia type: unspecified iron deficiency Qualified Code(s): D50.9 - Iron deficiency anemia, unspecified - Time Spent With Patient Total time spent is greater than 50% in coordination of care (as documented) at patient's floor/unit and/or counseling patient: - Subjective Interval history: The patient is resting comfortably in bed at time of examination. He says that overall he is feeling better. He has no acute complaints at this time. - Constitutional Vitals: Temp Pulse Resp BP Pulse Ox 97.6 F 83 15 110/62 100 02/04/18 07:14 02/04/18 07:14 02/04/18 07:41 02/04/18 07:41 02/04/18 07:41 General appearance: Present: A&O X 3, obese, answers questions appropriately Exam: Gen: Vitals noted. No acute distress. Patient does appear anxious. HEENT: oropharynx clear, Normocephalic, atraumatic Neck: Supple. No adenopathy. No obvious JVD. Firmness noted over thyroid which may represent nodule or goiter. Cardiac: RRR, no murmur, +S1/S2 Pulmonary: Diffuse bilateral wheezing Abdomen: somewhat firm, nontender, no guarding MSK: ROM intact, no joint swelling noted Extremities: no BLE edema, nontender calf, no cyanosis or clubbing Neuro: A&Ox3, moves all extremities, no focal deficits Psych: Appropriate mood and behavior Internal Medicine: Result - Labs CBC & Chem 7: 02/04/18 03:37 02/04/18 03:37 Labs: Short CBC 02/04/18 Range/Units 03:37 WBC 12.8 H (4.3-11.1) K/mcL Hgb 8.1 L (12.9-16.9) g/dL Hct 27.8 L (37.5-50.1) % Plt Count 389 (140-400) K/mcL Neutrophils # 11.8 H (1.6-8.9) K/mcL BMP 02/04/18 03:37 Sodium 143 Potassium 4.3 Chloride 106 Carbon Dioxide 31 H BUN 32 H Creatinine 0.64 L Glucose 191 H Calcium 8.9 - ABG Interpretation ABG results: ABG ABG pH 7.34 pH Units (7.32-7.45) 01/31/18 22:19 ABG pCO2 73 mmHg (35-45) H* 01/31/18 22:19 ABG pO2 166 mmHg (85-104) H 01/31/18 22:19 ABG O2 Saturation 99 % (95-98) H 01/31/18 22:19 Consult Discharge Plan - Plan Referrals: Lizeth Cortez MD [Partnered Physician] - 02/18/18 9:00 am Morris Hudson DO [Primary Care Provider] - 02/10/18 11:30 am <Júnior Nicholson - Last Filed: 02/04/18 16:54> Date of Encounter: 02/04/18 - Assessment and plan (1) Obesity (BMI 30.0-34.9) Current Visit: Yes Status: Chronic (2) PTSD (post-traumatic stress disorder) Current Visit: Yes Status: Chronic (3) Acute on chronic respiratory failure with hypoxia and hypercapnia Current Visit: Yes Status: Acute (4) Acute exacerbation of chronic obstructive airways disease Current Visit: Yes Status: Acute (5) CAD (coronary artery disease) Current Visit: Yes Status: Chronic Qualifiers: Coronary Disease-Associated Artery/Lesion type: [place] artery [place] vs. transplanted heart: [place] heart Associated angina: without angina Qualified Code(s): I25.10 - Atherosclerotic heart disease of [place] coronary artery without angina pectoris (6) DVT prophylaxis Current Visit: No Status: Acute (7) Atrial fibrillation Current Visit: Yes Status: Chronic Qualifiers: Atrial fibrillation type: paroxysmal Qualified Code(s): I48.0 - Paroxysmal atrial fibrillation (8) Anemia Current Visit: Yes Status: Acute Qualifiers: Anemia type: iron deficiency Iron deficiency anemia type: unspecified iron deficiency Qualified Code(s): D50.9 - Iron deficiency anemia, unspecified - Time Spent With Patient Total time spent is greater than 50% in coordination of care (as documented) at patient's floor/unit and/or counseling patient: - Constitutional Vitals: Temp Pulse Resp BP Pulse Ox 98.3 F 86 16 156/70 99 02/04/18 14:46 02/04/18 14:46 02/04/18 15:07 02/04/18 14:46 02/04/18 15:07 Internal Medicine: Result - Labs CBC & Chem 7: 02/04/18 03:37 02/04/18 03:37 Labs: Short CBC 02/04/18 Range/Units 03:37 WBC 12.8 H (4.3-11.1) K/mcL Hgb 8.1 L (12.9-16.9) g/dL Hct 27.8 L (37.5-50.1) % Plt Count 389 (140-400) K/mcL Neutrophils # 11.8 H (1.6-8.9) K/mcL BMP 02/04/18 03:37 Sodium 143 Potassium 4.3 Chloride 106 Carbon Dioxide 31 H BUN 32 H Creatinine 0.64 L Glucose 191 H Calcium 8.9 - ABG Interpretation ABG results: ABG ABG pH 7.34 pH Units (7.32-7.45) 01/31/18 22:19 ABG pCO2 73 mmHg (35-45) H* 01/31/18 22:19 ABG pO2 166 mmHg (85-104) H 01/31/18 22:19 ABG O2 Saturation 99 % (95-98) H 01/31/18 22:19 - Attending Attestation I examined this patient and my medical decision-making was reviewed with the Resident Physician on 02/04/18. I agree with the documented findings, disposition and treatment plan as described except to the extent set forth below.
[2018-02-04] MEDS: Gabapentin 400 MG CAPSULE PO SCH ×2 (07:56→22:20)
[2018-02-04] MEDS: Doxycycline 100 MG CAPSULE PO SCH ×2 (07:56→22:19)
[2018-02-04] MEDS: Diltiazem CD (24hr) 180 MG CAPSULE PO SCH (07:56)
[2018-02-04] MEDS: Furosemide 20 MG TABLET PO SCH (07:57)
[2018-02-04] MEDS: Insulin LISPRO 300 UNITS/3 ML VIAL SQ SCH ×4 (07:57→21:47)
[2018-02-04] MEDS: Venlafaxine XR (24 HR) 150 MG CAP.ER.24H PO SCH (07:57)
[2018-02-04] MEDS: MethylPREDNISolone 40 MG/ML VIAL IVP SCH ×2 (07:57→18:06)
[2018-02-04 12:06] LABS: Triiodothyronine (T3) Free 3.01 pg/mL (2.50-3.90)
--- NOTE | 2018-02-04 13:42 | Gastroenterology Consult Note ---
<RobertsonYao Kimberlyn - Last Filed: 02/04/18 13:40> Date of Encounter: 02/04/18 Time of Encounter: 10:45 - Assessment and plan (1) Anemia Current Visit: Yes Status: Acute Assessment and plan: Pt has been anemic dating back to 2014 with baseline Hgb 10-11. Hgb on admission was 9.4 and this AM Hgb 8.1. Iron 10 and ferritin 48. Fecal occult blood test positive on 02/02. Continue to monitor CBC and transfuse PRBC as needed. Plan for EGD and colonoscopy tomorrow. Clear liquid diet today, no red or purple. NPO at midnight. If unable tolerate NuLytely please use MiraLAX prep. If not clear by 6 AM, give 2 tap water enemas. Qualifiers: Anemia type: iron deficiency Iron deficiency anemia type: unspecified iron deficiency Qualified Code(s): D50.9 - Iron deficiency anemia, unspecified (2) Acute exacerbation of chronic obstructive airways disease Current Visit: No Status: Acute Assessment and plan: Management per primary team. - Time Spent With Patient Total time spent is greater than 50% in coordination of care (as documented) at patient's floor/unit and/or counseling patient: GI History of Present Illness - Data of Consult Patient: new to practice Consult date: 02/04/18 Requesting Physician: Júnior Nicholson MD - Consult Narrative Reason for consult: Anemia, FOBT positive History of present illness: Mr. Bess is a 67 year old male with PMHx of arthritis, asthma, COPD, chronic hypoxic and hypercapneic resp failure on home O2 and BIPAP, chronic YOON, CAD who presented with worsening SOB. Over the past 2 weeks prior to admission he has experienced worsening exertional dyspnea, dry cough and wheezing. His SOB worsened to the point that it did not improve with breathing treatments which led to his presentation. We have been consulted to evaluate his anemia. Pt has been anemic dating back to 2014 with baseline Hgb 10-11. Hgb on admission was 9.4 and this AM Hgb 8.1. Fecal occult blood test positive on 02/02. Procedures: Colonoscopy 05/09/2015 Dr. Horvath: Enlarged prostate, melanosis in colon, hyperplastic rectal polyps. NSAIDs: None Anticoagulation: None Past Med Surg Social Fam HX - Past Medical History Medical history: arthritis, asthma, cancer, COPD, GERD, glaucoma, hyperlipidemia , valvular heart disease, other Psychiatric history: anxiety, PTSD - Past Surgical History Surgical History: herniorrhaphy, orthopedic, other, sinus surgery, other - Social History Smoking Status: Former smoker Smokeless Tobacco Status: No Alcohol use: none Drug use: none - Family History Mother Living Status: Age at : 77 Hx Family Cancer: Yes (Rectal) Hx Family Neurologic Disorders: Yes (alzheimers) Father Living Status: Age at : 77 Cause of : emphysema Hx Family Respiratory Disorders: Yes Brother Adopted: No Family Member Ethnicity: Non- Living Status: Age at : 55 Cause of : Lung cancer Hx Family Cardiac Disorders: Yes (murmur) Hx Family Respiratory Disorders: Yes Hx Family Cancer: Yes Hx Family GI Disorders: No Hx Family Endocrine Disorder: No Hx Family Neuromuscular Disorders: No Hx Family Neurologic Disorders: No Hx Family HEENT Disorders: No Hx Family Autoimmune Disorders: No - Gastrointestinal Gastrointestinal: Present: as per HPI - Constitutional Constitutional: as per HPI - EENT Eyes: as per HPI Ears: Present: as per HPI Nose, mouth and throat: Present: as per HPI - Cardiovascular Cardiovascular ROS: Present: as per HPI - Respiratory Respiratory IM: Present: as per HPI - Genitourinary Genitourinary: Absent: change in color, Urinary frequency - Neurological ROS Neurological GI: Present: as per HPI - Hematologic/Lymphatic Hematologic/Lymphatic pediatric: Present: as per HPI - Musculoskeletal Musculoskeletal ROS GI: Present: as per HPI - Integumentary Integumentary GI: Present: as per HPI - Psychiatric ROS Psychiatric GI: Present: as per HPI - Endocrine Endocrine IM: Present: as per HPI - Constitutional Vitals: Temp Pulse Resp BP Pulse Ox 97.8 F 93 17 148/76 100 02/04/18 11:12 02/04/18 11:12 02/04/18 11:20 02/04/18 11:20 02/04/18 11:20 General appearance: Present: cooperative, A&O X 3, no acute distress, answers questions appropriately - Head Head exam: Present: atraumatic, normocephalic - Eye Eye exam: Present: normal appearance, sclera anicteric - ENT ENT exam: Present: mucous membranes moist - Neck Neck exam general surgery: Present: normal inspection, trachea midline - Respiratory Respiratory exam: Present: decreased breath sounds, wheezes - Cardiovascular Cardiovascular exam: Present: RRR, +S1, +S2 - GI/Abdominal GI/Abdominal exam: Present: soft, no peritoneal signs. Absent: distended, firm , guarding, tenderness - Rectal Rectal exam: Present: deferred - Extremities Exam Extremities exam: Present: warm - Neurological Exam Neurological exam: Present: no focal deficits - Psychiatric Psychiatric exam: Present: normal affect, normal mood - Skin Skin exam: Present: dry, intact, normal color, warm Results - Labs CBC & Chem 7: 02/04/18 03:37 02/04/18 03:37 Labs: Last Result Calcium 8.9 mg/dL (8.6-10.3) 02/04/18 03:37 Iron 10 mcg/dL (65-175) L 02/01/18 06:20 % Saturation 3 % (20-55) L 02/01/18 06:20 Transferrin 230 mg/dL (203-362) 02/01/18 06:20 Ferritin 48 ng/ml (20-250) 02/01/18 06:20 Troponin I < 0.03 ng/mL (< 0.04) 01/31/18 21:50 Vitamin B12 445 pg/mL (250-1100) 02/03/18 17:00 Folate 9.9 ng/mL (3.0-16.0) 02/03/18 17:00 Stool Occult Blood Positive (Negative) A 02/02/18 15:43 Entire Visit Hgb 8.1 g/dL (12.9-16.9) L 02/04/18 03:37 Hct 27.8 % (37.5-50.1) L 02/04/18 03:37 Ferritin 48 ng/ml (20-250) 02/01/18 06:20 Total Bilirubin 0.2 mg/dL (0.3-1.0) L 02/03/18 05:19 AST 19 Units/L (13-39) 02/03/18 05:19 ALT 10 Units/L (7-52) 02/03/18 05:19 Folate 9.9 ng/mL (3.0-16.0) 02/03/18 17:00 - ABG ABG results: ABG ABG pH 7.34 pH Units (7.32-7.45) 01/31/18 22:19 ABG pCO2 73 mmHg (35-45) H* 01/31/18 22:19 ABG pO2 166 mmHg (85-104) H 01/31/18 22:19 ABG O2 Saturation 99 % (95-98) H 01/31/18 22:19 Consult Discharge Plan - Plan Referrals: Lizeth Cortez MD [Partnered Physician] - 02/18/18 9:00 am Morris Hudson DO [Primary Care Provider] - 02/10/18 11:30 am <Gem Bliss - Last Filed: 02/04/18 17:46> Date of Encounter: 02/04/18 Time of Encounter: 12:00 - Time Spent With Patient Total time spent is greater than 50% in coordination of care (as documented) at patient's floor/unit and/or counseling patient: GI History of Present Illness - Data of Consult Requesting Physician: Júnior Nichoslon MD - Consult Narrative History of present illness: Mr. Bess is a 67 year old male - Constitutional Vitals: Temp Pulse Resp BP Pulse Ox 98.3 F 86 16 156/70 99 02/04/18 14:46 02/04/18 14:46 02/04/18 15:07 02/04/18 14:46 02/04/18 15:07 Results - Labs CBC & Chem 7: 02/04/18 03:37 02/04/18 03:37 Labs: Last Result Calcium 8.9 mg/dL (8.6-10.3) 02/04/18 03:37 Iron 10 mcg/dL (65-175) L 02/01/18 06:20 % Saturation 3 % (20-55) L 02/01/18 06:20 Transferrin 230 mg/dL (203-362) 02/01/18 06:20 Ferritin 48 ng/ml (20-250) 02/01/18 06:20 Troponin I < 0.03 ng/mL (< 0.04) 01/31/18 21:50 Vitamin B12 445 pg/mL (250-1100) 02/03/18 17:00 Folate 9.9 ng/mL (3.0-16.0) 02/03/18 17:00 Stool Occult Blood Positive (Negative) A 02/02/18 15:43 Entire Visit Hgb 8.1 g/dL (12.9-16.9) L 02/04/18 03:37 Hct 27.8 % (37.5-50.1) L 02/04/18 03:37 Ferritin 48 ng/ml (20-250) 02/01/18 06:20 Total Bilirubin 0.2 mg/dL (0.3-1.0) L 02/03/18 05:19 AST 19 Units/L (13-39) 02/03/18 05:19 ALT 10 Units/L (7-52) 02/03/18 05:19 Folate 9.9 ng/mL (3.0-16.0) 02/03/18 17:00 - ABG ABG results: ABG ABG pH 7.34 pH Units (7.32-7.45) 01/31/18 22:19 ABG pCO2 73 mmHg (35-45) H* 01/31/18 22:19 ABG pO2 166 mmHg (85-104) H 01/31/18 22:19 ABG O2 Saturation 99 % (95-98) H 01/31/18 22:19 - Attending Attestation I have personally performed a face to face evaluation on this patient. I have reviewed and agree with the care plan. History and Exam by me shows: Pt being seen at the bedside. Denies any overt bleeding. Assessment: Patient with anemia. Positive stool guaiac. Recommendation: Egd/colon in The morning
[2018-02-04] MEDS ORDERED: SODIUM CHLORIDE/NAHCO3/KCL/PEG 4,000 ML SOLN.RECON PO ONE ×2 (17:00→19:30)
[2018-02-04] MEDS: OLANZapine 5 MG TAB.RAPDIS PO SCH (22:19)
[2018-02-04] MEDS: Latanoprost 2.5 ML BOTTLE BOTH EYES SCH (22:20)
--- NOTE | 2018-02-04 23:47 | Anesthesia Evaluation PreOp ---
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 History: Other (glaucoma) Other Medical History: GERD Anesthesia History: No Prior Anesthetic Complications, Past Anesthesia (hernia, lung reduction, back, sinus) Alcohol Use: none Drug use: none Medications and Allergies Albuterol Neb [Proventil Neb] 2.5 mg IH TID PRN 05/09/15 [History] Albuterol Sulfate [Albuterol Inhaler] 2 puff IH Q4HR PRN 05/09/15 [History] Arformoterol Tartrate [Brovana] 15 mcg IH BID 05/09/15 [History] Atorvastatin Calcium [Lipitor] 40 mg PO HS 05/09/15 [History] Budesonide Neb [Pulmicort Neb] 0.25 mg IH BID 05/09/15 [History] Docusate Sodium [Dulcolax Stool Softener] 100 mg PO HS 05/09/15 [History] Oxygen 3 l NS AD 05/09/15 [History] Pantoprazole Sodium [Protonix] 40 mg PO QAM 05/09/15 [History] Polyethylene Glycol 3350 [MiraLAX] 17 gm PO DAILY PRN 05/09/15 [History] Tiotropium [Spiriva] 18 mcg IH QAM 05/09/15 [History] Travoprost [Travatan Z] 1 drop OP HS 05/09/15 [History] Furosemide [Lasix] 20 mg PO DAILY 09/21/16 [History] Potassium Chloride [K-Tab ER] 10 meq PO DAILY 09/21/16 [History] Venlafaxine HCl [Venlafaxine HCl ER] 150 mg PO QAM 09/21/16 [History] Diltiazem HCl [Diltiazem 24Hr Cd] 180 mg PO DAILY 03/31/17 [History] Nitroglycerin [Nitrostat] 0.4 mg SL Q5M PRN 03/31/17 [History] Oxycodone HCl/Acetaminophen [Percocet 5-325 mg Tablet] 1 - 2 each PO Q6H PRN 01/12 [History] Roflumilast [Daliresp] 500 mcg PO DAILY 03/31/17 [History] Gabapentin [Neurontin] 800 mg PO AD 02/01/18 [History] OLANZapine [Zyprexa] 7.5 mg PO HS 02/01/18 [History] 3 Allergy/AdvReac Type Severity Reaction Status Date / Time hydrocodone [From Vicodin] Allergy Mild Rash Verified 02/01/18 00:27 Penicillins [PCN] Allergy Mild Rash Verified 02/01/18 00:27 - Meds/Allergy Pre-op Review Medications Reviewed: Yes Allergies Reviewed: Yes Beta Blockers on Current Med List: No Anesthesia Results - Labs 02/05/18 05:53 02/05/18 05:53 - Imaging EKG: report reviewed (SINUS TACHYCARDIA LEFT BUNDLE BRANCH BLOCK [120+ ms QRS DURATION, 80+ ms Q/S IN V1/V2, 85+ ms R IN I/aVL/V5/V6]) Additional studies: echo 04-13: Impressions: LVEF 45-50%. Low normal/mildly reduced LV systolic function. Normal LV chamber size wall thickness. Mild left ventricular diastolic dysfunction. Atypical septal motion consistent with bundle branch block. Normal right ventricular structure and function. No evidence of pulmonary hypertension identified. No significant valvular dysfunction. Anesthesia Exam Selected Entries 02/05/18 07:34 Temperature 97.5 F L Pulse Rate 91 Respiratory Rate 16 Blood Pressure 130/78 O2 Sat by Pulse Oximetry 100 Oxygen Flow Rate (LPM) 10 Oxygen Delivery Method Aerosol Mask Weight: 94kg BMI33 NPO (# of Hours): 8 - HEENT Pupil (Motor): EOMI Mallampati: II Teeth: Edentulous Oral Opening: Greater than 3 - PLANNING ASSISTANT LOC: Oriented PLANNING ASSISTANT Motor: Normal RUE, Normal LUE, Normal RLE, Normal LLE, Normal Face PLANNING ASSISTANT Sensory: Normal: RUE, LUE, RLE, LLE, Face - Cardiac Rhythm: Regular Murmur: None - Pulmonary Breath Sounds: bilateral Rhonchi (diffuse wheezing b/l, few rhonchi) Respiratory Effort: Labored Anesthesia Assess/Plan ASA Score: 4 Modified Malini Scale for Level of Consciousness: Cooperative, oriented, and tranquil Anesthetic Plan: MAC Monitoring Plan: Standard Monitors Recovery Plan: PACU (Will try light MAC, if unable to accomplish, will need GA. Patient high risk of not coming off vent if intubated.)
[2018-02-05] MEDS: MethylPREDNISolone 40 MG/ML VIAL IVP SCH ×3 (00:33→17:01)
[2018-02-05] MEDS: Ipratropium/Albuterol Neb 3 ML IH SCH ×6 (03:39→23:52)
[2018-02-05] MEDS: *HR* Heparin 5,000 UNIT/ML VIAL SQ SCH ×3 (06:30→20:54)
[2018-02-05 06:36] LABS: Basophils % 0.3 %; Hematocrit 30.8 % (37.5-50.1); Hemoglobin 9.4 g/dL (12.9-16.9); Lymphocytes # 0.5 K/mcL (0.6-4.6); Lymphocytes % 3.9 %; Mean Corpuscular HGB Conc 30.5 g/dL (31.6-35.5); Mean Corpuscular Hemoglobin 26.3 pg (28.0-33.3); Monocytes # 0.4 K/mcL (0.0-1.3); Monocytes % 3.3 %; Neutrophils # 10.2 K/mcL (1.6-8.9); Nucleated Red Blood Cells 0.4 /100 WBC (0); Platelet Count 373 K/mcL (140-400); Red Blood Count 3.58 M/mcL (4.19-5.50); Red Cell Distribution Width 13.2 % (11.5-14.5); Segmented Neutrophils % 87.5 %
[2018-02-05 06:42] LABS: BUN/Creatinine Ratio 35 (6-26); Blood Urea Nitrogen 22 mg/dL (8-23); Carbon Dioxide 42 mEq/L (23-29); Chloride 104 mEq/L (98-107); Glucose 136 mg/dL (70-105); Osmolality,Calculated 303 (280-300); Sodium 144 mEq/L (136-145); eGFR For African Americans > 60 (> 60); eGFR For Non-African Americans > 60 (> 60)
[2018-02-05] MEDS: Budesonide Neb 0.25 MG/2 ML IH SCH ×2 (07:31→22:14)
--- NOTE | 2018-02-05 08:11 | Anesthesia Progress Note ---
Date of Encounter: 02/05/18 Time of Encounter: 08:08 Anesthesia Note - Note Note: 02/05/18 08:08 Patient scheduled for EGD/Colonoscopy. Patient with labored breathing. ABG shows pH 7.31, CO2 76, pO2 87 and HCO3 38. This case is not emergent or urgent. Discussed with Dr Bliss and patient. Will no do procedure today and try to get respiratory status improved. Reason for Cancellation: Abnormal Labs, Other (poor repiratory status)
[2018-02-05 08:12] LABS: ABG Base Excess 10 mEq/L (-2 to 3); ABG HCO3 38 mEq/L (21-27); ABG Oxygen Saturation 95 % (95-98); ABG PCO2 76 mmHg (35-45); ABG PH 7.31 pH Units (7.32-7.45); ABG PO2 87 mmHg (85-104); ABG TCO2 41 mEq/L (20-26)
[2018-02-05] MEDS: Diltiazem CD (24hr) 180 MG CAPSULE PO SCH (08:51)
[2018-02-05] MEDS: Gabapentin 400 MG CAPSULE PO SCH ×2 (08:51→20:48)
[2018-02-05] MEDS: Doxycycline 100 MG CAPSULE PO SCH ×2 (08:51→20:49)
[2018-02-05] MEDS: Venlafaxine XR (24 HR) 150 MG CAP.ER.24H PO SCH (08:51)
[2018-02-05] MEDS: Insulin LISPRO 300 UNITS/3 ML VIAL SQ SCH ×4 (08:52→20:57)
[2018-02-05] MEDS: Furosemide 20 MG TABLET PO SCH (08:52)
--- NOTE | 2018-02-05 08:55 | Event Note ---
Date of Encounter: 02/05/18 Time of Encounter: 08:00 Patient the scopes were consulted today because of his worsening respiratory condition with very high PCO2. Once pulmonary driver much more stable then we can reconsider doing the scope. Consider getting input from pulmonology
--- NOTE | 2018-02-05 14:19 | Internal Med Progress Note ---
<Yao Sylvester - Last Filed: 02/05/18 14:39> Date of Encounter: 02/05/18 Time of Encounter: 08:35 - Assessment and plan (1) Acute on chronic respiratory failure with hypoxia and hypercapnia Current Visit: Yes Status: Acute Assessment and plan: Secondary to underlying COPD ABG demonstrated 7.34/73/166 on arrival Suspect chronic CO2 retention He does have home O2 and BiPAP however he is not compliant with this treatment plan He did showed significant improvement with addition to BiPAP and increased O2 We will continue to monitor and treat COPD exacerbation as below Update 02/05 Worsened respiratory status overnight ABG 7.31/76/87/38/95 This is likely due to inability to wear BiPAP overnight while completing bowel prep Seems to have improved with BiPAP today, will run VBG in AM (2) Acute exacerbation of chronic obstructive airways disease Current Visit: Yes Status: Acute Assessment and plan: Continues to be extremely wheezy on examination, still complains of shortness of breath The patient is also still BiPAP dependent overnight and throughout day intermittently Transition to PO doxycycline, antibiotic day 3 IV Solu-Medrol 40 mg every 8 hour, I will decrease today Continue DuoNeb/bronchodilators as needed Initial blood cultures remain negative Update 02/05 Continue doxycycline, day 4/7 Transition to Solu-medrol 40mg Q12h The patient has Q4h duonebs scheduled, q2h Albuterol nebs PRN (3) CAD (coronary artery disease) Current Visit: Yes Status: Chronic Assessment and plan: History of coronary artery disease Currently on aspirin, statin, Lasix No acute needs at this time Qualifiers: Coronary Disease-Associated Artery/Lesion type: jena artery [place] vs. transplanted heart: jena heart Associated angina: without angina Qualified Code(s): I25.10 - Atherosclerotic heart disease of jena coronary artery without angina pectoris (4) Atrial fibrillation Current Visit: Yes Status: Chronic Assessment and plan: Continue on home Cardizem, rate controlled The patient was not on anticoagulation as outpatient We will discuss long-term anticoagulation goals with patient Hold on initiation pending GI workup for possible blood loss Qualifiers: Atrial fibrillation type: paroxysmal Qualified Code(s): I48.0 - Paroxysmal atrial fibrillation (5) Obesity (BMI 30.0-34.9) Current Visit: Yes Status: Chronic (6) PTSD (post-traumatic stress disorder) Current Visit: Yes Status: Chronic Assessment and plan: Continue home meds (7) DVT prophylaxis Current Visit: No Status: Acute Assessment and plan: Subcutaneous heparin (8) Anemia Current Visit: Yes Status: Acute Assessment and plan: Anemia which appears to be chronic, iron deficiency Hgb dropped to 8.2 from 8.4 possibly due to fluid expansion Stool Occult blood pending, Peripheral smear demonstrates YOON Started Venofer, will continue for 5 days Reticulocyte hgb equivalent is low, indicating inadequate usage of iron I will consult hematology for opinions Update 02/05 Hgb has risen to 9.4 today, likely in response to Iron and diarrhea from colon prep Stool occult blood returns positive Hematology/Oncology is on board, will follow GI planned for EGD and Colonoscopy today, but opted not to due to hypercarbia Attempt again tomorrow Qualifiers: Anemia type: iron deficiency Iron deficiency anemia type: unspecified iron deficiency Qualified Code(s): D50.9 - Iron deficiency anemia, unspecified - Time Spent With Patient Total time spent is greater than 50% in coordination of care (as documented) at patient's floor/unit and/or counseling patient: - Subjective Interval history: The patient is resting comfortably in bed at time of examination. Today he says that he is having a slightly harder time breathing. He apparently was in and out of bed last night due to his colonoscopy prep, and as a result did not remain on his BiPAP. He otherwise is feeling fine. - Constitutional Vitals: Temp Pulse Resp BP Pulse Ox 98.6 F 95 16 144/76 98 02/05/18 11:50 02/05/18 11:50 02/05/18 11:50 02/05/18 11:50 02/05/18 11:50 General appearance: Present: A&O X 3, obese, answers questions appropriately Exam: Gen: Vitals noted. No acute distress on BiPAP HEENT: oropharynx clear, Normocephalic, atraumatic Neck: Supple. No adenopathy. No obvious JVD. Firmness noted over thyroid which may represent nodule or goiter. Cardiac: RRR, no murmur, +S1/S2 Pulmonary: Diffuse bilateral wheezing which is significantly improved from prior exam Abdomen: somewhat firm, nontender, no guarding MSK: ROM intact, no joint swelling noted Extremities: no BLE edema, nontender calf, no cyanosis or clubbing Neuro: A&Ox3, moves all extremities, no focal deficits Psych: Appropriate mood and behavior Internal Medicine: Result - Labs CBC & Chem 7: 02/05/18 05:53 02/05/18 05:53 Labs: Short CBC 02/05/18 Range/Units 05:53 WBC 11.7 H (4.3-11.1) K/mcL Hgb 9.4 L (12.9-16.9) g/dL Hct 30.8 L (37.5-50.1) % Plt Count 373 (140-400) K/mcL Neutrophils # 10.2 H (1.6-8.9) K/mcL BMP 02/05/18 05:53 Sodium 144 Potassium 4.0 Chloride 104 Carbon Dioxide 42 H* BUN 22 Creatinine 0.62 L Glucose 136 H Calcium 9.0 - ABG Interpretation ABG results: ABG ABG pH 7.31 pH Units (7.32-7.45) L 02/05/18 08:03 ABG pCO2 76 mmHg (35-45) H* 02/05/18 08:03 ABG pO2 87 mmHg (85-104) 02/05/18 08:03 ABG O2 Saturation 95 % (95-98) 02/05/18 08:03 Consult Discharge Plan - Plan Referrals: Lizeth Cortez MD [Partnered Physician] - 02/18/18 9:00 am Morris Hudson DO [Primary Care Provider] - 02/10/18 11:30 am <Júnior Nicholson - Last Filed: 02/05/18 15:23> Date of Encounter: 02/05/18 - Assessment and plan (1) Obesity (BMI 30.0-34.9) Current Visit: Yes Status: Chronic (2) PTSD (post-traumatic stress disorder) Current Visit: Yes Status: Chronic (3) Acute on chronic respiratory failure with hypoxia and hypercapnia Current Visit: Yes Status: Acute (4) Acute exacerbation of chronic obstructive airways disease Current Visit: Yes Status: Acute (5) CAD (coronary artery disease) Current Visit: Yes Status: Chronic Qualifiers: Coronary Disease-Associated Artery/Lesion type: jena artery [place] vs. transplanted heart: jena heart Associated angina: without angina Qualified Code(s): I25.10 - Atherosclerotic heart disease of jena coronary artery without angina pectoris (6) DVT prophylaxis Current Visit: No Status: Acute (7) Atrial fibrillation Current Visit: Yes Status: Chronic Qualifiers: Atrial fibrillation type: paroxysmal Qualified Code(s): I48.0 - Paroxysmal atrial fibrillation (8) Anemia Current Visit: Yes Status: Acute Qualifiers: Anemia type: iron deficiency Iron deficiency anemia type: unspecified iron deficiency Qualified Code(s): D50.9 - Iron deficiency anemia, unspecified - Time Spent With Patient Total time spent is greater than 50% in coordination of care (as documented) at patient's floor/unit and/or counseling patient: - Constitutional Vitals: Temp Pulse Resp BP Pulse Ox 98.6 F 95 16 144/76 98 02/05/18 11:50 02/05/18 11:50 02/05/18 11:50 02/05/18 11:50 02/05/18 11:50 Internal Medicine: Result - Labs CBC & Chem 7: 02/05/18 05:53 02/05/18 05:53 Labs: Short CBC 02/05/18 Range/Units 05:53 WBC 11.7 H (4.3-11.1) K/mcL Hgb 9.4 L (12.9-16.9) g/dL Hct 30.8 L (37.5-50.1) % Plt Count 373 (140-400) K/mcL Neutrophils # 10.2 H (1.6-8.9) K/mcL BMP 02/05/18 05:53 Sodium 144 Potassium 4.0 Chloride 104 Carbon Dioxide 42 H* BUN 22 Creatinine 0.62 L Glucose 136 H Calcium 9.0 - ABG Interpretation ABG results: ABG ABG pH 7.31 pH Units (7.32-7.45) L 02/05/18 08:03 ABG pCO2 76 mmHg (35-45) H* 02/05/18 08:03 ABG pO2 87 mmHg (85-104) 02/05/18 08:03 ABG O2 Saturation 95 % (95-98) 02/05/18 08:03 - Attending Attestation I examined this patient and my medical decision-making was reviewed with the Resident Physician on 02/05/18. I agree with the documented findings, disposition and treatment plan as described except to the extent set forth below.
--- NOTE | 2018-02-05 19:02 | Oncology Inp Progress Note ---
Date of Encounter: 02/05/18 Time of Encounter: 16:10 (1) Anemia Current Visit: Yes Status: Acute Assessment and plan: Iron deficiency anemia secondary to occult gastrointestinal hemorrhage. Evaluation is otherwise negative. His LDH is not elevated making hemolysis an unlikely. Nutritional stores are otherwise adequate. Continue with IV iron while hospitalized. We will arrange follow-up with Dr. Eastman as an outpatient for further follow-up of his anemia. We will otherwise sign off. If you have any concerns or questions, do not hesitate to call my cell phone at [phone] Qualifiers: Anemia type: iron deficiency Iron deficiency anemia type: unspecified iron deficiency Qualified Code(s): D50.9 - Iron deficiency anemia, unspecified Oncology: Subj Interval history: Ney feels bit better. He is breathing a bit easier. He denies any fever, chills or symptoms of infection. Nonproductive cough is stable. He denies any mary grace bleeding. No epistaxis, hemoptysis, hematemesis or melena. Colonoscopy and EGD have been deferred secondary to his poor respiratory status. - Constitutional Vitals: Vital Signs Temp Pulse Resp BP Pulse Ox 02/05/18 15:37 18 98 02/05/18 15:23 99 F 85 16 138/70 98 02/05/18 11:50 98.6 F 95 16 144/76 98 02/05/18 11:20 15 100 02/05/18 08:20 21 93 02/05/18 08:01 98.4 F 121 22 170/85 93 02/05/18 07:34 97.5 F L 91 16 130/78 100 02/05/18 07:31 20 99 02/05/18 03:55 98.6 F 89 16 107/58 96 02/05/18 03:39 18 99 02/04/18 23:16 16 99 02/04/18 22:31 99 02/04/18 20:25 97.9 F 103 18 181/92 99 02/04/18 19:40 18 98 Intake and Output 02/05/18 02/05/18 02/06/18 08:59 16:59 00:59 Intake Total 0 / 0 120 / 120 Output Total 125 / 125 Balance 0 / 0 -5 / -5 Intake: Oral 0 / 0 120 / 120 Output: Urine 125 / 125 Other: Meal Breakfast Lunch Percent of Meal Consumed 0% 100% Stool Size Copious Moderate Stool Consistency loose liquid liquid Stool Color Brown # Voids 2 1 Weight 93.9 kg Blood Glucose* 126 126 Patient Weight 02/06/18 00:59 Weight 93.9 kg General appearance: cooperative, no acute distress, obese - Head Head exam: Present: atraumatic, normal inspection, normocephalic - Eye Eye exam: Present: normal appearance, conjuntiva pink, sclera anicteric - ENT ENT exam: Present: mucous membranes moist, normal oropharynx - Neck Neck exam: Present: full ROM, normal inspection - Respiratory Respiratory exam: Present: decreased breath sounds, prolonged expiratory phase - Cardiovascular Cardiovascular exam: Present: RRR - GI/Abdominal GI/Abdominal exam: Present: normal bowel sounds, soft - Extremities Exam Extremities exam: Present: full ROM, normal inspection - Neurological Exam Neurological exam: Present: alert, CN II-XII intact, oriented X3, no focal deficits - Skin Skin exam: Present: normal color Oncology: Obj Data - Labs CBC & Chem 7: 02/05/18 05:53 02/05/18 05:53 Labs: Laboratory Results - last 24 hr 02/04/18 02/04/18 02/04/18 07:16 11:14 16:20 WBC RBC Hgb Hct MCV MCH MCHC RDW Plt Count MPV Immature Gran % Seg Neutrophils % Lymphocytes % Monocytes % Eosinophils % Basophils % Neutrophils # Lymphocytes # Monocytes # Eosinophils # Basophils # Nucleated RBCs/100 WBC Sample Site ABG pH ABG pCO2 ABG pO2 ABG HCO3 ABG Total CO2 ABG O2 Saturation ABG Base Excess Laith Test O2 Delivery Device Inspired O2 Sodium Potassium Chloride Carbon Dioxide BUN Creatinine Est GFR ( Amer) Est GFR (Non-Af Amer) BUN/Creatinine Ratio Glucose POC Glucose 141 H 122 H 119 H Calculated Osmolality Calcium 02/04/18 02/05/18 02/05/18 20:26 05:53 05:53 WBC 11.7 H RBC 3.58 L Hgb 9.4 L Hct 30.8 L MCV 86.0 MCH 26.3 L MCHC 30.5 L RDW 13.2 Plt Count 373 MPV 9.0 L Immature Gran % 5.0 H Seg Neutrophils % 87.5 Lymphocytes % 3.9 Monocytes % 3.3 Eosinophils % 0.0 Basophils % 0.3 Neutrophils # 10.2 H Lymphocytes # 0.5 L Monocytes # 0.4 Eosinophils # 0.0 Basophils # 0.0 Nucleated RBCs/100 WBC 0.4 H Sample Site ABG pH ABG pCO2 ABG pO2 ABG HCO3 ABG Total CO2 ABG O2 Saturation ABG Base Excess Laith Test O2 Delivery Device Inspired O2 Sodium 144 Potassium 4.0 Chloride 104 Carbon Dioxide 42 H* BUN 22 Creatinine 0.62 L Est GFR ( Amer) > 60 Est GFR (Non-Af Amer) > 60 BUN/Creatinine Ratio 35 H Glucose 136 H POC Glucose 127 H Calculated Osmolality 303 H Calcium 9.0 02/05/18 02/05/18 02/05/18 07:37 08:03 16:22 WBC RBC Hgb Hct MCV MCH MCHC RDW Plt Count MPV Immature Gran % Seg Neutrophils % Lymphocytes % Monocytes % Eosinophils % Basophils % Neutrophils # Lymphocytes # Monocytes # Eosinophils # Basophils # Nucleated RBCs/100 WBC Sample Site R Radial ABG pH 7.31 L ABG pCO2 76 H* ABG pO2 87 ABG HCO3 38 H ABG Total CO2 41 H ABG O2 Saturation 95 ABG Base Excess 10 H Laith Test Positive O2 Delivery Device Cannula Inspired O2 36.0 Sodium Potassium Chloride Carbon Dioxide BUN Creatinine Est GFR ( Amer) Est GFR (Non-Af Amer) BUN/Creatinine Ratio Glucose POC Glucose 126 H 126 H Calculated Osmolality Calcium - ABG Interpretation ABG results: ABG ABG pH 7.31 pH Units (7.32-7.45) L 02/05/18 08:03 ABG pCO2 76 mmHg (35-45) H* 02/05/18 08:03 ABG pO2 87 mmHg (85-104) 02/05/18 08:03 ABG O2 Saturation 95 % (95-98) 02/05/18 08:03 Consult Discharge Plan - Plan Referrals: Lizeth Cortez MD [Partnered Physician] - 02/18/18 9:00 am Morris Hudson DO [Primary Care Provider] - 02/10/18 11:30 am
[2018-02-05] MEDS: Latanoprost 2.5 ML BOTTLE BOTH EYES SCH (20:45)
[2018-02-05] MEDS: OLANZapine 5 MG TAB.RAPDIS PO SCH (20:47)
[2018-02-06] MEDS: MethylPREDNISolone 40 MG/ML VIAL IVP SCH ×2 (00:25→09:55)
[2018-02-06 03:34] LABS: Kappa Qnt Free Light Chains 0.26 mg/dL (0.33-1.94); Lambda Qnt Free Light Chains 0.2 mg/dL (0.57-2.63)
[2018-02-06] MEDS: Ipratropium/Albuterol Neb 3 ML IH SCH ×3 (03:46→11:13)
[2018-02-06 04:36] LABS: Basophils % 0.2 %; Hematocrit 27.3 % (37.5-50.1); Hemoglobin 8.3 g/dL (12.9-16.9); Lymphocytes # 0.3 K/mcL (0.6-4.6); Lymphocytes % 3.7 %; Mean Corpuscular HGB Conc 30.4 g/dL (31.6-35.5); Mean Corpuscular Hemoglobin 26.3 pg (28.0-33.3); Mean Corpuscular Volume 86.4 fL (83.0-100.0); Mean Platelet Volume 8.9 fL (9.4-12.4); Monocytes # 0.6 K/mcL (0.0-1.3); Monocytes % 6.3 %; Neutrophils # 7.4 K/mcL (1.6-8.9); Nucleated Red Blood Cells 1.4 /100 WBC (0); Platelet Count 341 K/mcL (140-400); Red Blood Count 3.16 M/mcL (4.19-5.50); Red Cell Distribution Width 13.2 % (11.5-14.5); Segmented Neutrophils % 84.8 %
[2018-02-06 04:38] LABS: VBG HCO3 36 mEq/L (21-27); VBG PCO2 56 mmHg (41-51); VBG PH 7.42 pH Units (7.32-7.42); VBG PO2 213 mmHg (25-50)
[2018-02-06 05:03] LABS: BUN/Creatinine Ratio 45 (6-26); Blood Urea Nitrogen 30 mg/dL (8-23); Calcium 8.8 mg/dL (8.6-10.3); Carbon Dioxide 34 mEq/L (23-29); Chloride 106 mEq/L (98-107); Glucose 133 mg/dL (70-105); Osmolality,Calculated 306 (280-300); Potassium 4.5 mEq/L (3.5-5.1); Sodium 144 mEq/L (136-145); eGFR For African Americans > 60 (> 60); eGFR For Non-African Americans > 60 (> 60)
[2018-02-06] MEDS: *HR* Heparin 5,000 UNIT/ML VIAL SQ SCH (06:03)
[2018-02-06] MEDS: Budesonide Neb 0.25 MG/2 ML IH SCH (07:28)
[2018-02-06 08:05] LABS: Tissue Transglutaminase IgA 0 U/mL (0-3)
[2018-02-06 08:11] VITALS: BP 102/62
[2018-02-06 08:43] LABS: Alpha 2 Globulin (PEP) 1.06 g/dL (0.48-1.05); Beta Globulin (PEP) 0.79 g/dL (0.48-1.10)
--- NOTE | 2018-02-06 09:12 | Discharge Summary ---
<Kobe Mayers - Last Filed: 02/06/18 09:36> - NOTES TO OUTPATIENT PROVIDER Notes to Outpatient Provider: Patient has extensive history of COPD with prior lung reduction surgeries. He presented for an acute exacerbation COPD. He was given steroids, breathing treatments, antibiotics, and continued with BiPAP. His breathing slowly improved to close to his baseline over the course of several days. He will need a longer steroid taper when he reports the hospital. He also reports needing different straps for his home BiPAP/CPAP. His hemoglobin drop while inpatient and evaluation occurred. He is found to be iron deficient and have Hemoccult-positive stool. He was given IV iron, but did not have the expected improvement. Endoscopy could not be performed due to patient respiratory status while inpatient and hemoptic was consulted for further evaluation. His hemoglobin stabilized, but is recommended that he have endoscopies as outpatient and follow-up with heme/onc. Orders not resulted at time of discharge: Pending orders 02/03/18 17:00 Protein Electrophoresis Routine Date of Encounter: 02/06/18 Time of Encounter: 09:00 - Discharge Diagnosis (1) Acute on chronic respiratory failure with hypoxia and hypercapnia Priority: Primary Status: Chronic (2) Acute exacerbation of chronic obstructive airways disease Priority: Primary Status: Resolved (3) Obesity (BMI 30.0-34.9) Priority: Primary Status: Chronic (4) CAD (coronary artery disease) Priority: Primary Status: Chronic Qualifiers: Coronary Disease-Associated Artery/Lesion type: [place] artery [place] vs. transplanted heart: [place] heart Associated angina: without angina Qualified Code(s): I25.10 - Atherosclerotic heart disease of [place] coronary artery without angina pectoris (5) PTSD (post-traumatic stress disorder) Priority: Primary Status: Chronic (6) DVT prophylaxis Priority: Secondary Status: Resolved (7) Atrial fibrillation Priority: Primary Status: Chronic Qualifiers: Atrial fibrillation type: paroxysmal Qualified Code(s): I48.0 - Paroxysmal atrial fibrillation (8) Anemia Priority: Primary Status: Acute Qualifiers: Anemia type: iron deficiency Iron deficiency anemia type: unspecified iron deficiency Qualified Code(s): D50.9 - Iron deficiency anemia, unspecified Hospital course: Mr. Bess is a 67 year old male with prior medical history of advanced COPD ( with prior lung reduction surgeries), A. fib, valvular heart disease, and CAD who presented to [facility] on 02/01/18 with worsening dyspnea. He was found to have an acute exacerbation of COPD. He was given steroids, breathing treatments, antibiotics, and continued with BiPAP. His breathing slowly improved to close to his baseline over the course of several days. He will need a longer steroid taper when he reports the hospital. He also reports needing different straps for his home BiPAP/CPAP. His hemoglobin did drop while inpatient and evaluation commenced. He was found to be iron deficient and have Hemoccult-positive stool. He was given IV iron, but did not have the expected improvement. Endoscopy could not be performed due to patient respiratory status while inpatient and hem/onc was consulted for further evaluation. His hemoglobin stabilized, but is recommended that he have endoscopies as outpatient and follow-up with heme/onc. As of this morning he has sedation plus stable for discharge with follow-up with his PCP, sleeve bottom feller, regulatory intern, and GI Discharge discussed with: patient - Time Spent with Patient Total time spent providing and/or coordinating discharge services: Greater than 30 minutes - Discharge Medications Prescriptions: Doxycycline 100 mg PO BID #10 capsule predniSONE [PredniSONE] See Taper PO DAILY #33 tablet Home Medications: Albuterol Neb [Proventil Neb] 2.5 mg IH TID PRN 05/09/15 [History] Albuterol Sulfate [Albuterol Inhaler] 2 puff IH Q4HR PRN 05/09/15 [History] Arformoterol Tartrate [Brovana] 15 mcg IH BID 05/09/15 [History] Atorvastatin Calcium [Lipitor] 40 mg PO HS 05/09/15 [History] Budesonide Neb [Pulmicort Neb] 0.25 mg IH BID 05/09/15 [History] Docusate Sodium [Dulcolax Stool Softener] 100 mg PO HS 05/09/15 [History] Oxygen 3 l NS AD 05/09/15 [History] Pantoprazole Sodium [Protonix] 40 mg PO QAM 05/09/15 [History] Polyethylene Glycol 3350 [MiraLAX] 17 gm PO DAILY PRN 05/09/15 [History] Tiotropium [Spiriva] 18 mcg IH QAM 05/09/15 [History] Travoprost [Travatan Z] 1 drop OP HS 05/09/15 [History] Furosemide [Lasix] 20 mg PO DAILY 09/21/16 [History] Potassium Chloride [K-Tab ER] 10 meq PO DAILY 09/21/16 [History] Venlafaxine HCl [Venlafaxine HCl ER] 150 mg PO QAM 09/21/16 [History] Diltiazem HCl [Diltiazem 24Hr Cd] 180 mg PO DAILY 03/31/17 [History] Nitroglycerin [Nitrostat] 0.4 mg SL Q5M PRN 03/31/17 [History] Oxycodone HCl/Acetaminophen [Percocet 5-325 mg Tablet] 1 - 2 each PO Q6H PRN 01/12 [History] Roflumilast [Daliresp] 500 mcg PO DAILY 03/31/17 [History] Gabapentin [Neurontin] 800 mg PO AD 02/01/18 [History] OLANZapine [Zyprexa] 7.5 mg PO HS 02/01/18 [History] Doxycycline 100 mg PO BID #10 capsule 02/06/18 [Rx] predniSONE [PredniSONE] See Taper PO DAILY #33 tablet 02/06/18 [Rx] Allergies/Adverse Reactions: 3 Allergy/AdvReac Type Severity Reaction Status Date / Time hydrocodone [From Vicodin] Allergy Mild Rash Verified 02/01/18 00:27 Penicillins [PCN] Allergy Mild Rash Verified 02/01/18 00:27 Date of admission: 02/01/18 02:09 Primary care physician: Cale Malagon Consults: 02/01/18 02:13 Consult to Pulmonology [CONS] Routine Consulting Provider: [facility] Reason for Consult: Advanced COPD with worsening SOB and cough Call Completed: No 02/03/18 14:09 Consult to Oncology Hematology [CONS] Routine Consulting Provider: Kenzie Dangelo Reason for Consult: Iron deficiency anemia with poor iron absorption Time Notified: 14:13 Call Completed: Yes 02/04/18 07:46 Consult to Gastroenterology [CONS] Routine Consulting Provider: Gastroenter[facility] Reason for Consult: Anemia, positive stool occult blood Time Notified: 07:47 Call Completed: Yes Discharging clinician: Kobe Mayers Anticipated date of discharge: 02/06/18 - Constitutional Vitals: Temp Pulse Resp BP Pulse Ox 98.1 F 91 16 102/62 98 02/06/18 08:03 02/06/18 08:03 02/06/18 08:03 02/06/18 08:03 02/06/18 08:03 General appearance: Present: cooperative, A&O X 3, pleasant, obese, answers questions appropriately Exam: General: Cooperative, pleasant, no acute distress, alert and oriented 3, answers questions appropriately HEENT: Normocephalic, atraumatic, Conjunctiva pink, sclera anicteric, oral mucosa moist Respiratory: No accessory muscle usage, mild diffuse wheezing, mild bibasilar Rales Cardiovascular: Regular rate and rhythm, S1 and S2 present, no murmurs/rubs/ gallops/clicks appreciated GI/abdominal: Nondistended, nontender, soft, normal bowel sounds, no peritoneal signs Extremities: No calf tenderness, no pedal edema appreciated, warm Neurological: Alert and oriented 3, no facial droop, no focal deficits Skin: Dry, intact, normal color - Patient Status Disposition: Home, Self-Care Condition: Fair Functional capacity at discharge: independent ambulation Overall status at discharge: patient is progressing back to baseline - Discharge Instructions Follow Up With: Lizeth Cortez MD [Partnered Physician] - 02/18/18 9:00 am Morris Hudson DO [Primary Care Provider] - 02/10/18 11:30 am Additional Instructions: Please return to emergency room if worsening shortness of breath, development of fever/chills, or development of chest pain. Physical medications as prescribed: Doxycycline twice a day for 10 doses total Prednisone as taper: 40 mg daily for 5 days, followed by 20 mg daily for 5 days, followed by 10 mg daily for 5 days, followed by 5 mg daily for 5 days Please follow-up with your primary care provider in 1-2 weeks Please follow-up with your sleeve bottom feller in 1-2 weeks for closer evaluation of COPD and discuss head where for home BiPAP/CPAP Please follow-up with hematology/oncology as scheduled to discuss iron deficiency Please follow-up with GI for possible endoscopies - Diet and Activity Activity: increase activity as tolerated, wear oxygen at night Diet: advance to your usual diet <Júnior Nicholson - Last Filed: 02/06/18 13:35> Orders not resulted at time of discharge: Pending orders 02/03/18 17:00 Protein Electrophoresis Routine Date of Encounter: 02/06/18 - Discharge Diagnosis (1) Obesity (BMI 30.0-34.9) Status: Chronic (2) PTSD (post-traumatic stress disorder) Status: Chronic (3) Acute on chronic respiratory failure with hypoxia and hypercapnia Status: Chronic (4) Acute exacerbation of chronic obstructive airways disease Status: Resolved (5) CAD (coronary artery disease) Status: Chronic Qualifiers: Coronary Disease-Associated Artery/Lesion type: [place] artery [place] vs. transplanted heart: [place] heart Associated angina: without angina Qualified Code(s): I25.10 - Atherosclerotic heart disease of [place] coronary artery without angina pectoris (6) DVT prophylaxis Status: Resolved (7) Atrial fibrillation Status: Chronic Qualifiers: Atrial fibrillation type: paroxysmal Qualified Code(s): I48.0 - Paroxysmal atrial fibrillation (8) Anemia Status: Acute Qualifiers: Anemia type: iron deficiency Iron deficiency anemia type: unspecified iron deficiency Qualified Code(s): D50.9 - Iron deficiency anemia, unspecified Hospital course: Mr. Bess is a 67 year old male - Time Spent with Patient Total time spent providing and/or coordinating discharge services: Date of admission: 02/01/18 02:09 Primary care physician: Cale Malagon Consults: 02/01/18 02:13 Consult to Pulmonology [CONS] Routine Consulting Provider: [facility] Reason for Consult: Advanced COPD with worsening SOB and cough Call Completed: No 02/03/18 14:09 Consult to Oncology Hematology [CONS] Routine Consulting Provider: Kenzie Dangelo Reason for Consult: Iron deficiency anemia with poor iron absorption Time Notified: 14:13 Call Completed: Yes 02/04/18 07:46 Consult to Gastroenterology [CONS] Routine Consulting Provider: [facility] Reason for Consult: Anemia, positive stool occult blood Time Notified: 07:47 Call Completed: Yes - Constitutional Vitals: Temp Pulse Resp BP Pulse Ox 98.1 F 91 16 102/62 98 02/06/18 08:03 02/06/18 08:03 02/06/18 11:14 02/06/18 08:03 02/06/18 11:14 - Attending Attestation examined this patient and my medical decision-making was reviewed with the Resident Physician on 02/06/18. I agree with the documented findings, disposition and treatment plan as described except to the extent set forth below. Admitted for acute on chronic respiratory failure, COPDE, Chronic YOON noted on admission with possible GIB, hemodynamically stable, Per GI, can be undergo endoscopy a outpatient. Labs and Imaging unremarkable, seen and examined this morning, no new complains, chest is CTAB. He as BIPAP and O2 at home, continue same, prolonged steroid taper. Stable for discharge home. Rest of details as in the resident physician's documentation
[2018-02-06] MEDS: Doxycycline 100 MG CAPSULE PO SCH (09:55)
[2018-02-06] MEDS: Diltiazem CD (24hr) 180 MG CAPSULE PO SCH (09:55)
[2018-02-06] MEDS: Venlafaxine XR (24 HR) 150 MG CAP.ER.24H PO SCH (09:55)
[2018-02-06] MEDS: Gabapentin 400 MG CAPSULE PO SCH (09:55)
[2018-02-06] MEDS: Furosemide 20 MG TABLET PO SCH (09:55)
[2018-02-06] MEDS: Insulin LISPRO 300 UNITS/3 ML VIAL SQ SCH (09:56)
--- NOTE | 2018-02-06 13:44 | Physician Discharge Referral ---
Home Health/Hosp Referral Info Transfer to: Home Health Provider in Charge Post Discharge: PCP - Diagnosis (1) Acute on chronic respiratory failure with hypoxia and hypercapnia Priority: Primary Status: Chronic (2) Acute exacerbation of chronic obstructive airways disease Priority: Primary Status: Resolved (3) Anemia Priority: Primary Status: Acute (4) Obesity (BMI 30.0-34.9) Priority: Primary Status: Chronic (5) CAD (coronary artery disease) Priority: Primary Status: Chronic (6) PTSD (post-traumatic stress disorder) Priority: Primary Status: Chronic (7) Atrial fibrillation Priority: Primary Status: Chronic - Respiratory Orders Oxygen / L per min (Per previous prescription) Smoking Cessation: Smoking cessation has been advised. For more information, call the [employer] Tobacco Quit Line at 6-739-MJHU-NOW. - Diet/Nutrition Diet/Nutrition Orders: Cardiac - Activity Activity Orders: Ambulate - Services Needed Following services are medically necessary services: Nursing - Transfer Medications Prescriptions: Doxycycline 100 mg PO BID #10 capsule predniSONE [PredniSONE] See Taper PO DAILY #33 tablet Home Medications: Albuterol Neb [Proventil Neb] 2.5 mg IH TID PRN 05/09/15 [History] Albuterol Sulfate [Albuterol Inhaler] 2 puff IH Q4HR PRN 05/09/15 [History] Arformoterol Tartrate [Brovana] 15 mcg IH BID 05/09/15 [History] Atorvastatin Calcium [Lipitor] 40 mg PO HS 05/09/15 [History] Budesonide Neb [Pulmicort Neb] 0.25 mg IH BID 05/09/15 [History] Docusate Sodium [Dulcolax Stool Softener] 100 mg PO HS 05/09/15 [History] Oxygen 3 l NS AD 05/09/15 [History] Pantoprazole Sodium [Protonix] 40 mg PO QAM 05/09/15 [History] Polyethylene Glycol 3350 [MiraLAX] 17 gm PO DAILY PRN 05/09/15 [History] Tiotropium [Spiriva] 18 mcg IH QAM 05/09/15 [History] Travoprost [Travatan Z] 1 drop OP HS 05/09/15 [History] Furosemide [Lasix] 20 mg PO DAILY 09/21/16 [History] Potassium Chloride [K-Tab ER] 10 meq PO DAILY 09/21/16 [History] Venlafaxine HCl [Venlafaxine HCl ER] 150 mg PO QAM 09/21/16 [History] Diltiazem HCl [Diltiazem 24Hr Cd] 180 mg PO DAILY 03/31/17 [History] Nitroglycerin [Nitrostat] 0.4 mg SL Q5M PRN 03/31/17 [History] Oxycodone HCl/Acetaminophen [Percocet 5-325 mg Tablet] 1 - 2 each PO Q6H PRN 01/12 [History] Roflumilast [Daliresp] 500 mcg PO DAILY 03/31/17 [History] Gabapentin [Neurontin] 800 mg PO AD 02/01/18 [History] OLANZapine [Zyprexa] 7.5 mg PO HS 02/01/18 [History] Doxycycline 100 mg PO BID #10 capsule 02/06/18 [Rx] predniSONE [PredniSONE] See Taper PO DAILY #33 tablet 02/06/18 [Rx] Allergies/Adverse Reactions: 3 Allergy/AdvReac Type Severity Reaction Status Date / Time hydrocodone [From Vicodin] Allergy Mild Rash Verified 02/01/18 00:27 Penicillins [PCN] Allergy Mild Rash Verified 02/01/18 00:27 Certification: Further, I certify that my clinical findings support that this patient is homebound (i.e. absences from home require considerable and taxing effort and are for medical reasons or [employer] services or infrequently or short duration when for other reasons) because: Homebound Reason: Severity of cardiac or pulmonary status limits activity tolerance Attestation: My signature below is to certify that this patient is under my care and that I, or nurse practitioner, or a physician's executive marketing assistant working with me, has a face-to -face encounter with this patient.
[2018-02-08 07:43] LABS: IFE Reflexed NOT DONE
== END 2018-02-06 13:35 | disposition home or self-care (01) | DRG 190 ==
LOC: 2NENU 21:28 → EMEROO 21:28 → 2NENU 02-01 00:49 → SUATTDRO 02-01 02:09
PROVIDERS: ADMIT Internal Medicine; ATTEND Internal Medicine